=== PATIENT | female | born 1950 | race Caucasian/White ===

== ENCOUNTER 2017-12-17 10:28 | Outpatient (REF) | payer OTHER, SELFPAY ==
[2017-12-17 12:57] LABS: Anion Gap 10.6 mmol/L (3-11); BUN 12 mg/dL (7-18); CO2 27.4 mmol/L (21.0-32.0); CREATININE 0.82 mg/dL (0.55-1.02); Chloride 101 mmol/L (98-107); Glucose 88 mg/dL (70-100); Potassium 4.3 mmol/L (3.5-5.1); Sodium 139 mmol/L (136-145)
[2017-12-17 13:05] LABS: Abs Immature Grans 0.02 k/cumm (0.0-0.09); Absolute Basophil Count 0.03 k/cumm (0.0-0.2); Absolute Eosinophil Count 0.16 k/cumm (0.0-0.7); Absolute Lymphocyte Count 2.47 k/cumm (1.2-3.4); Absolute Monocyte Count 0.63 k/cumm (0.11-0.7); Absolute Neutrophil Count 6.21 k/cumm (1.2-6.7); Basophils % 0.3; Eosinophils % 1.7; HCT 40.9 % (36.0-46.0); HGB 13.6 g/dL (12.0-15.5); Immature Grans % 0.2; Lymphocytes % 25.9; Mean Corp. HGB Concentration 33.3 g/dL (32.0-36.0); Mean Corpuscular Hemoglobin 29.8 pg (27.0-33.0); Mean Corpuscular Volume 89.7 fL (80-95); Mean Platelet Volume 11.3 fL (8.0-11.0); Monocytes % 6.6; Neutrophils % 65.3; Platelet Count 339 x1000/uL (130-400); RBC 4.56 m/cumm (4.00-5.20); RBC Distribution Width 13.3 % (11.7-14.6); White Blood Cell Count 9.52 k/cumm (4.4-10.8)
== END 2017-12-17 10:48 ==
LOC: NCHCN 10:28
PROVIDERS: PCP Family Medicine; Visit Provider Family Medicine
DX: R00.2 Palpitations (principal)
CPT/HCPCS: 80048; 85025

== ENCOUNTER 2017-12-18 15:08 | Outpatient (CLI) | payer OTHER, SELFPAY ==
--- NOTE | 2017-12-24 11:14 | HOLTER_ITS ---
HOLTER MONITOR DATE OF DICTATION December 24, 2017 STUDY INDICATION Palpitations. REQUESTING PROVIDER Janna Marin M.D. FINDINGS The patient was monitored for 2 days and 5 minutes. The baseline rhythm was sinus rhythm. Average heart rate 75 beats per minute, range 60 to 107 beats per minute. There was rare ectopy, 323 PVCs and 1 PAC. There were no ventricular or supraventricular tachycardias. There were no pauses greater than 3 seconds. There was no higher degree heart block. There was 1 patient event that correlated with normal sinus rhythm. FINAL INTERPRETATION No significant tachy or danielle arrhythmias. Guero Henderson M.D. CHARLES/mitzy T-12/24/2017
== END 2017-12-18 15:28 ==
PROVIDERS: PCP Family Medicine; Visit Provider Family Medicine
DX: R00.2 Palpitations (principal)
CPT/HCPCS: 93225

== ENCOUNTER 2017-12-21 14:59 | Outpatient (CLI) | payer OTHER, SELFPAY | END 2017-12-21 15:19 | PROVIDERS: PCP Family Medicine; Visit Provider Family Medicine | DX: R00.2 Palpitations (principal) | CPT/HCPCS: 93226 ==

== ENCOUNTER 2018-08-17 09:34 | Outpatient (CLI) | payer OTHER, SELFPAY ==
[2018-08-17 10:19] LABS: HGB 13.2 g/dL (12.0-15.5); Mean Corpuscular Hemoglobin 29.5 pg (27.0-33.0); Mean Corpuscular Volume 89.3 fL (80-95); Mean Platelet Volume 10.6 fL (8.0-11.0); Platelet Count 328 x1000/uL (130-400); RBC 4.48 m/cumm (4.00-5.20); RBC Distribution Width 13.5 % (11.7-14.6); White Blood Cell Count 9.11 k/cumm (4.4-10.8)
[2018-08-17 11:26] LABS: BUN 13 mg/dL (7-18); CREATININE 0.82 mg/dL (0.55-1.02); Calcium 8.8 mg/dL (8.5-10.1); Chloride 104 mmol/L (98-107); Glucose 82 mg/dL (70-100); Potassium 4.6 mmol/L (3.5-5.1); Sodium 141 mmol/L (136-145); TSH (W/Ref FT4) 1.92 uIU/mL (0.358-3.74)
[2018-08-17 11:35] LABS: Vitamin D 25 Total 37.8 ng/ml (30-100)
== END 2018-08-17 09:54 ==
PROVIDERS: PCP Family Medicine; Visit Provider Family Medicine
DX: I10 Essential (primary) hypertension (principal); R53.83 Other fatigue; E55.9 Vitamin D deficiency, unspecified
CPT/HCPCS: 36415; 80048; 82306; 85027; 84443

== ENCOUNTER 2018-12-16 14:30 | Outpatient (CLI) | payer OTHER, SELFPAY ==
--- NOTE | 2018-12-16 16:24 | DI.RAD_ITS ---
EXAM: XR RIBS LT W PA LAT CHEST INDICATION: BACK PAIN M54.9, PAIN OVER LOWER LT RIBS NOT RESPONDED TO BUTT TRIMMER. COMPARISON: No exams were available for comparison TECHNIQUE: 2D digital imaging was performed. FINDINGS: The heart size is normal. The lungs appear clear. A BB marker was placed over the left lower ribs in the area of the patient's pain. No rib fracture or lytic lesion is seen. The spine is unremarkab le. Degenerative changes are seen in the left shoulder as well as in the spine. IMPRESSION: No acute abnormality. No rib abnormality is visible.
== END 2018-12-16 14:50 ==
PROVIDERS: PCP Family Medicine; Visit Provider Family Medicine
DX: R07.81 Pleurodynia (principal); M54.9 Dorsalgia, unspecified
CPT/HCPCS: 71046; 71100

== ENCOUNTER 2018-12-16 16:36 | Outpatient (REF) | payer OTHER, SELFPAY ==
[2018-12-16 19:37] LABS: Bilirubin Negative (Negative); Blood Negative (Negative); Clarity Clear (Clear); Glucose Negative (Negative); Ketones Negative (Negative); Leukocyte Esterase Small (Negative); Nitrite Negative (Negative); Specific Gravity 1.025 (1.005-1.025); Urobilinogen 0.2 EU/dL (Up TO 0.2)
[2018-12-16 19:50] LABS: Bacteria Rare HPF (Negative); Epithelial Cells Moderate HPF (Negative); Other Cells Negative (Negative); RBC Negative (0-2); WBC 0-2 HPF (0-5)
[2018-12-16 19:51] LABS: C & S Indicated? No; Casts Negative LPF (Negative); Crystals Negative HPF (Negative); Mucus Negative (Negative)
== END 2018-12-16 16:56 ==
LOC: NCHCN 16:36
PROVIDERS: PCP Family Medicine; Visit Provider Family Medicine
DX: R30.0 Dysuria (principal); M54.9 Dorsalgia, unspecified
CPT/HCPCS: 81003; 81015

== ENCOUNTER 2019-07-15 13:12 | Outpatient (REF) | payer OTHER, SELFPAY ==
[2019-07-15 15:22] LABS: HCT 40.9 % (36.0-46.0); HGB 13.8 g/dL (12.0-15.5); Mean Corp. HGB Concentration 33.7 g/dL (32.0-36.0); Mean Corpuscular Hemoglobin 30.3 pg (27.0-33.0); Mean Corpuscular Volume 89.7 fL (80-95); Mean Platelet Volume 11.6 fL (8.0-11.0); Platelet Count 322 x1000/uL (130-400); RBC 4.56 m/cumm (4.00-5.20); RBC Distribution Width 13.3 % (11.7-14.6); White Blood Cell Count 7.45 k/cumm (4.4-10.8)
[2019-07-15 15:23] LABS: Bilirubin Negative (Negative); Blood Trace-intact (Negative); Clarity Turbid (Clear); Glucose Negative (Negative); Ketones Negative (Negative); Leukocyte Esterase Moderate (Negative); Nitrite Negative (Negative); Specific Gravity >= 1.030 (1.005-1.025); Urobilinogen 0.2 EU/dL (Up TO 0.2); pH 5.5 (5-8)
[2019-07-15 15:51] LABS: Epithelial Cells Many HPF (Negative)
[2019-07-15 15:53] LABS: C & S Indicated? No/Sq. Contamination; Crystals Many Amorphous HPF (Negative)
[2019-07-15 16:52] LABS: ALT 38 U/L (14-59); AST 23 U/L (15-37); Alkaline Phosphatase 71 U/L (46-116); Anion Gap 6.9 mmol/L (3-11); BUN 13 mg/dL (7-18); Bilirubin, Total 0.5 mg/dL (0.2-1.0); CO2 28.1 mmol/L (21.0-32.0); CREATININE 1.08 mg/dL (0.55-1.02); Calcium 9.6 mg/dL (8.5-10.1); Calculated LDL 105 mg/dL (<100); Chloride 103 mmol/L (98-107); Cholesterol 188 mg/dL (<200); Estimated GFR 50.76 (mL/min/1.73m2); Glucose 96 mg/dL (74-106); HDL Cholesterol 49 mg/dL (40-60); Potassium 4.3 mmol/L (3.5-5.1); Sodium 138 mmol/L (136-145); TSH (W/Ref FT4) 1.66 uIU/mL (0.36-3.74); Total Protein 7.7 g/dL (6.4-8.2); Triglyceride 173 mg/dL (<150)
[2019-07-16 11:53] LABS: Hepatitis C Ab w Rflx HCV PCR Negative (Negative)
[2019-07-19 12:49] LABS: IgA 426 mg/dL (85-499); Tissue Transglutaminase IgA <1.2 U/mL (<4.0)
== END 2019-07-15 13:32 ==
LOC: NCHCN 13:12
PROVIDERS: PCP Family Medicine; Visit Provider Nurse Practitioner Family
DX: R19.7 Diarrhea, unspecified (principal)
CPT/HCPCS: 80053; 80061; 82784; 83516; 85027; 86803; 81003; 81015; 84443

== ENCOUNTER 2019-09-06 10:49 | Outpatient (REF) | payer OTHER, SELFPAY ==
[2019-09-06 16:21] LABS: PROTEIN 14.2 mg/dL
[2019-09-06 16:23] LABS: COMMENT (LAB VIEW ONLY) 194.05 mg/dL; Prot/Crea Ur Ratio 0.07
[2019-09-06 16:24] LABS: COMMENT (LAB VIEW ONLY) 197.07 mg/dL; Microalb ug/mg Crea 11.7 ug/mg Cr
== END 2019-09-06 11:09 ==
LOC: NCHCN 10:49
PROVIDERS: PCP Family Medicine; Visit Provider Nurse Practitioner Family
DX: R73.9 Hyperglycemia, unspecified (principal); I10 Essential (primary) hypertension
CPT/HCPCS: 82043; 82565; 82570; 84156

== ENCOUNTER 2019-10-08 14:20 | Outpatient (CLI) | payer OTHER, SELFPAY ==
--- NOTE | 2019-10-08 | DI.CT_ITS ---
EXAM: CT ABDOMEN PELVIS W CLINICAL HISTORY: ABD PAIN,R10.84,FEVER,R50.9, H/O DIVERTICULTITIS,Z87.19 TECHNIQUE: COMPARISON: CT ABD PELVIS WITH CONTRAST from 05/30/2017 FINDINGS: CT examination of the abdomen and pelvis was performed with intravenous infusion of 100 cc of Omnipaq ue 350. Images obtained through the lung bases are unremarkable. No free intraperitoneal air. There are multiple low-attenuation hepatic lesions consistent with cysts grossly unchanged in appeara nce comparison with prior scan of May 2017. There is hepatic steatosis. Spleen is unremarkable in appearance. Pancreas appears normal. No biliary dilatation presumed prior cholecystectomy. Abdominal aorta is of normal diameter and major visceral branches appear intact. Small bilateral fat containing inguinal hernias noted. No abdominal or pelvic adenopathy. Appendix is normal. No evidence of bowel obstruction. There is wall thickening of the sigmoid colon and there is localized pericolonic fat edema adjacent t o the distal sigmoid colon seen posterior to the uterus consistent with acute uncomplicated sigmoid d iverticulitis. No abscess or perforation. Cell Installer structures unremarkable except for probable uterine f ibroids. IMPRESSION: Findings consistent with acute uncomplicated sigmoid diverticulitis. RADIATION DOSE DELIVERED: 909.14mGy.cm Total DLP
[2019-10-08 15:23] LABS: CREATININE 0.88 mg/dL (0.55-1.02)
[2019-10-08] MEDS: Omnipaque 350 MG/ML 100 ML BTL IJ (16:24)
[2019-10-08] MEDS: Normal Saline - Diluent 50 ML VIAL IV (16:25)
[2019-10-08] MEDS: Normal Saline Flush 10 ML SYR IVP (16:25)
[2019-10-08] MEDS: Omnipaque 350 MG/ML 50 ML BTL PO (16:25)
[2019-10-08] MEDS: Breeza Beverage 473 ML BTL PO ×2 (16:28→16:29)
--- NOTE | 2019-10-08 16:40 | DI.VRAD_ITS ---
Addendum created by Tim Sherwood DO on 10/08/2019 4:47:33 PM EDT: Addendum: Findings of acute sigmoid diverticulitis were discussed with Dr. Farias by Dr. Sherwood at approximately 3:47 p.m. on 10/08/2019 by phone. Central standard time. Initial report created on 10/08/2019 4:40:44 PM EDT: PROCEDURE INFORMATION: Exam: CT Abdomen And Pelvis With Contrast Exam date and time: 10/08/2019 1:46 PM Age: 69 years old Clinical indication: Other: Abd pain, fever, h/o diverticulititis TECHNIQUE: Imaging protocol: Computed tomography of the abdomen and pelvis with intravenous contrast. Contrast material: OMNIPAQUE 350; Contrast volume: 100 ml; Contrast route: INTRAVENOUS (IV); COMPARISON: CT ABD PELVIS WITH CONTRAST 05/30/2017 3:53 PM FINDINGS: Lungs: Bibasilar atelectasis. Heart: Heart appears mildly enlarged however this may be related to phase of respiration. Mediastinal space: Small hiatal hernia. Liver: Similar hepatic cysts. Unremarkable visualized liver otherwise. Hepatomegaly. Gallbladder and bile ducts: Gallbladder not identified. Pancreas: Unremarkable pancreas. Spleen: Unremarkable spleen. Small splenule. Adrenals: Unremarkable bilateral adrenal glands. Kidneys and ureters: Unremarkable bilateral kidneys. Stomach and bowel: Extensive diverticulosis with wall thickening of the sigmoid and small amount of adjacent reactive change. Nonobstructed bowel otherwise. Appendix: Appendix is not identified however there are no secondary signs of appendicitis. Intraperitoneal space: Unremarkable. Vasculature: Normal caliber aorta. Scattered vascular calcifications. Lymph nodes: No suspicious lymphadenopathy. Bladder: Unremarkable bladder. Reproductive: Similar slightly heterogeneous appearance of the uterus likely related to uterine fibroids. 9 mm right adnexal cyst. The left ovary/adnexa is not well visualized. Bones/joints: Scattered bony degenerative changes. Stable suspected bone island within the left ilium. Soft tissues: Bilateral fat containing inguinal hernias without evidence of acute complication. Unremarkable superficial soft tissues. Other findings: No ductal dilation. IMPRESSION: Findings compatible with uncomplicated acute sigmoid diverticulitis. Dictated and Authenticated by: Tim Sherwood MD. Ordering:JULY Saldivar MD
== END 2019-10-08 14:40 ==
PROVIDERS: PCP Family Medicine; Visit Provider Family Medicine
DX: R10.84 Generalized abdominal pain (principal); R50.9 Fever, unspecified; Z87.19 Personal history of other diseases of the digestive system; N25.9 Disorder resulting from impaired renal tubular function, unspecified
CPT/HCPCS: 74177; 82565; J3490; Q9967

== ENCOUNTER 2019-12-07 17:18 | Outpatient (REF) | payer OTHER, SELFPAY ==
[2019-12-07 18:33] LABS: Bilirubin Negative (Negative); Blood Negative (Negative); Clarity Sl Cloudy (Clear); Glucose Negative (Negative); Ketones Negative (Negative); Leukocyte Esterase Small (Negative); Nitrite Negative (Negative); Specific Gravity 1.015 (1.005-1.025); Urobilinogen 0.2 EU/dL (Up TO 0.2); pH 5.5 (5-8)
[2019-12-07 18:44] LABS: Bacteria Many HPF (Negative); C & S Indicated? Yes; Casts Negative LPF (Negative); Crystals Negative HPF (Negative); Epithelial Cells Few HPF (Negative); Mucus Negative (Negative); RBC 0-2 HPF (0-2)
== END 2019-12-07 17:38 ==
LOC: NCHCN 17:18
PROVIDERS: PCP Family Medicine; Visit Provider Physician Assistant
DX: N39.0 Urinary tract infection, site not specified (principal)
CPT/HCPCS: 87077; 81003; 81015; 87086; 87186

== ENCOUNTER 2019-12-15 19:45 | Outpatient (REF) | payer OTHER, SELFPAY ==
[2019-12-15 19:19] LABS: Bilirubin Negative (Negative); Blood Negative (Negative); Clarity Clear (Clear); Glucose Negative (Negative); Ketones Negative (Negative); Leukocyte Esterase Moderate (Negative); Nitrite Negative (Negative); Urobilinogen 0.2 EU/dL (Up TO 0.2)
[2019-12-15 19:55] LABS: Epithelial Cells Few HPF (Negative); RBC Negative HPF (0-2); WBC >50 HPF (0-5)
[2019-12-15 19:56] LABS: Bacteria Moderate HPF (Negative); C & S Indicated? Yes; Casts Negative LPF (Negative); Crystals Negative HPF (Negative); Mucus Negative (Negative); Other Cells Negative (Negative)
== END 2019-12-15 20:05 ==
LOC: NCHCN 19:45
PROVIDERS: PCP Family Medicine; Visit Provider Physician Assistant
DX: N39.0 Urinary tract infection, site not specified (principal)
CPT/HCPCS: 81003; 81015; 87086

== ENCOUNTER 2020-08-05 12:40 | Outpatient (CLI) | payer MEDICARE, SELFPAY ==
--- NOTE | 2020-08-05 | DI.RAD_ITS ---
Exam(s) XR KNEE LT 3V AP,LAT,MARY EXAM: XR KNEE LT 3V AP,LAT,MARY CLINICAL HISTORY: knee pain left. TECHNIQUE: 2D digital imaging was performed. COMPARISON: No exams were available for comparison FINDINGS: There is no evidence of fracture. There appears to be a small joint effusion. No joint space narrow ing. Bone density is age-appropriate. No osseous lesions. IMPRESSION: DATA REPOSITORY: RADIATION DOSE DELIVERED:
--- NOTE | 2020-08-05 14:16 | DI.VRAD_ITS ---
PROCEDURE INFORMATION: Exam: XR Left Knee Exam date and time: 08/05/2020 12:59 PM Age: 69 years old Clinical indication: Pain; Knee; Left; Additional info: No injury, left knee pain TECHNIQUE: Imaging protocol: XR Left knee. Views: 3 views. COMPARISON: No relevant prior studies available. FINDINGS: Bones/joints: There are mild degenerative changes of the knee joint, predominantly involving the medial joint compartment. There is no evidence of acute fracture. There is no evidence of joint malalignment or dislocation. Soft tissues: There are no soft tissue masses or fluid collections. IMPRESSION: 1. No evidence of acute fracture. 2. No evidence of acute dislocation. Dictated and Authenticated by: Sami Hines MD. Ordering:SHELLI Maldonado MD
== END 2020-08-05 13:00 ==
PROVIDERS: PCP Family Medicine; Visit Provider Physician Assistant Medical
DX: M25.562 Pain in left knee (principal); M25.462 Effusion, left knee
CPT/HCPCS: 73562

== ENCOUNTER 2020-08-07 17:36 | Emergency (ER) | payer MEDICARE, SELFPAY ==
[2020-08-07] VITALS (38 sets, daily range): BP systolic 110–154; BP diastolic 50–91; PULSE 73–86; RESP 14–29; TEMP 36.7; O2SAT 93–98
--- NOTE | 2020-08-07 17:30 | RT.EKG_ITS ---
APPROVED REPORT Exam: Resting ECG Reason for Exam: chest pain Patient Location: E HR:86 bpm ECG Measurements Heart Rate 86 AXIS MA 175 P 52 QRSd 92 QRS -12 QT 366 T 58 QTc 428 Conclusion Sinus rhythm...normal P axis, V-rate 60- 99 Ventricular premature complex...V complex w/ short R-R interval Physician: no stemi
--- NOTE | 2020-08-07 17:54 | DI.CT_ITS ---
Exam(s) CT CHEST PE ABD PELVIS W EXAM: CT CHEST PE ABD PELVIS W TECHNIQUE: CT angiography of the chest, abdomen and pelvis was performed with bolus infusion of 100 cc of Omnipaque 350. Axial CT angiography was performed with multi-slice acquisition and multi-planar and/or 3D reconstruc tions. COMPARISON: CT CT ABDOMEN PELVIS W from 10/08/2019 FINDINGS: The lungs are predominantly clear except for mild mosaic attenuation versus subtle ground-glass opac ities, findings could represent pulmonary vascular congestion period. No pleural effusion. No eviden ce of pulmonary embolic disease. No thoracic aortic dissection or aneurysm. Major branches of the tho racic aorta appear normal. No pleural effusion. No mediastinal or hilar adenopathy. Tracheobronchial tree appears intact. Multiple hepatic cysts again noted, the largest measuring to 7 cm in diameter in the right hepatic lo be. Kidneys are unremarkable in appearance except for presumed tiny right renal cyst. Adrenals are unremarkable in appearance. Gallbladder and bile ducts are CT normal. Pancreas is unremarkable. Sple en is unremarkable. No abdominal aortic aneurysm or dissection. Major branches of the abdominal aorta appear normal. No a bdominal or pelvic adenopathy. Normal appendix. No significant abdominal wall hernia. No focal bowel pathology. Remelt Sugar Boiler structures grossly intact except for presumed uterine fibroids. IMPRESSION: No evidence of acute vascular abnormality of the chest, abdomen or pelvis. No other acute abnormaliti es identified. RADIATION DOSE DELIVERED: 1,360.65mGy.cm Total DLP 1,360.65mGy.cm Total DLP DATA REPOSITORY: All CT scans at this facility are submitted to the National Radiology Data Registry (NRDR) Dose Index Registry (DIR) with the [employer] ([employer]). RADIATION OPTIMIZATION: All CT scans at this facility use at least one of these dose optimization te chniques: automated exposure control; mA and/or kV adjustment per patient size (includes targeted exa ms where dose is matched to clinical indication); or iterative reconstruction.
[2020-08-07 18:13] LABS: Abs Immature Grans 0.04 10^3/uL (0.0-0.06); Absolute Basophil Count 0.03 10^3/uL (0.0-0.2); Absolute Eosinophil Count 0.17 10^3/uL (0.0-0.7); Absolute Lymphocyte Count 2.48 10^3/uL (1.2-3.4); Absolute Monocyte Count 0.78 10^3/uL (0.1-0.8); Absolute Neutrophil Count 8.13 10^3/uL (1.2-6.7); Basophils % 0.3; Eosinophils % 1.5; HCT 40.9 % (36.0-46.0); HGB 13.7 g/dL (11.2-15.7); Immature Grans % 0.3; Lymphocytes % 21.3; MCH 30.1 pg (27.0-33.0); MCHC 33.5 % (32.0-36.0); MCV 89.9 fL (80-95); MPV 10.9 fL (8.0-11.0); Monocytes % 6.7; Neutrophils % 69.9; Nucleated RBC 0 %; Platelet Count 322 10^3/uL (130-400); RBC 4.55 10^6/uL (3.93-5.22); RDW 12.5 % (11.7-14.6); RDW-SD 41.5 fL; WBC 11.63 10^3/uL (4.4-10.8)
[2020-08-07 18:15] LABS: Bilirubin Negative (Negative); Blood Negative (Negative); Clarity Clear (Clear); Glucose Negative (Negative); Ketones Negative (Negative); Leukocyte Esterase Small (Negative); Nitrite Negative (Negative); Specific Gravity <= 1.005 (1.005-1.025); Urobilinogen 0.2 EU/dL (Up TO 0.2); pH 5.5 (5-8)
[2020-08-07 18:26] LABS: Bacteria Negative HPF (Negative); C & S Indicated? Yes; Casts Negative LPF (Negative); Crystals Negative HPF (Negative); Epithelial Cells Few HPF (Negative); Mucus Negative (Negative); Other Cells Few Renal (Negative); RBC Negative HPF (0-2)
[2020-08-07 18:33] LABS: Lipase 288 U/L (73-393)
--- NOTE | 2020-08-07 18:34 | W.ED.GENAD ---
Discharge Plan Disposition Patient Disposition: HOME Condition: Stable Discharge Details Clinical Impression: Hepatic cyst, Abdominal pain Primary Care Provider: Janna Marin ED Provider: Victor Manuel Osorio Home Meds and New Rx's Prescriptions: Continued metoprolol tartrate 25 MG tablet 1 tab PO BID RF: 0 trazodone 100 MG tablet 100 mg PO HS RF: 0 cholecalciferol (vitamin D3) [Vitamin D3] 1,000 UNIT capsule 1,000 unit PO DAILY RF: 0 ibuprofen 600 MG tablet 600 mg PO Q6H PRN PRNQty: 40 RF: 0 omeprazole 20 MG capsule,delayed release(DR/EC) 20 mg PO DAILY RF: 0 meclizine [Antivert] 25 MG tablet 25 mg PO TID PRN PRN (Reason: Vertigo) Qty: 20 RF: 0 Discharge Instructions Instructions: Abdominal Pain (ED) Additional Instructions: At this time it appears that your abdominal pain is being caused by your hepatic cyst. These will likely need to be drained or removed by a surgeon or a specialized insole buffer. We have placed a referral with the surgeon Dr. Arriaza whom you have had a relationship with before. Please follow-up closely with them. Please take Tylenol and Motrin as needed for pain. I have given you a bottle with 4 Mingo pills. Take these cautiously and only as needed as they can cause dizziness and lightheadedness. If you notice any worsening of your symptoms, or any new symptoms such as vomiting, diarrhea, fever, chills, shortness of breath, chest pain, numbness, weakness, or fainting , please return immediately to the emergency department for reevaluation. Please follow up with your primary care provider as soon as possible for reassessment and reevaluation. As always, it was a pleasure participating in your medical care today. Referrals: Carly Arriaza MD [ [facility] STAFF PHYSICIAN] - Janna Marin MD [Primary Care Provider] - Juliana Patiño DO [OSTEOPATHIC DOCTOR] - Medical Decision Making This is a pleasant 69-year-old female with a past medical history of cholecystectomy, previous diverticulitis, previous lumpectomy and subsequent bilateral mastectomy in 2016, no recent chemotherapy or radiation, no previous heart disease, who presents today for epigastric and chest pain. Patient states that 36 hours ago when the patient woke up in the morning she had mild pressure and bandlike sensation across her chest and epigastric region. It is no transition to her mid to lower abdominal region. She describes the pain as pressure heaviness and achiness. She denies any arm neck or shoulder pain. She states that if she gets up exerts herself or she sits in a funny position this worsens her symptoms. Symptoms are unchanged with food. She denies any vomiting or diarrhea but does admit to notable bloating. No other complaints at this time. No other modifying factors. She denies any tearing or ripping sensation. She does admit to mild pleuritic chest pain only with deep inspiration appear Exam demonstrates mild abdominal distention, but present but reduced bowel sounds. Mild epigastric and left upper quadrant left mid quadrant abdominal pain. With the patient's abdominal pain, age, previous abdominal surgeries of a cholecystectomy that was open, will get a CT scan to rule out acute process diverticulitis or small bowel obstruction. Will evaluate for cardiac etiology although I feel this is less likely. PE is also on the differential with her history of malignancy in the past, now her chest pain or shortness of breath and chest pressure 8:[address] scan per radiology shows stable hepatic cysts which are actually fairly notably large, 6 cm x 4 cm, I suspect this is the cause of her pain as it is in the exact location of her pain. No transaminitis. Radiology does discuss mild atelectasis, however the patient has no cough fever or chills. Symptoms are inconsistent with pneumonia. Urinalysis shows only 10 WBCs, with epithelial cells. Negative nitrites. The patient denies any dysuria or frequency. Symptoms inconsistent with urinary tract infection. Patient's pain is controlled at this time. She continues to to show no signs of an acute surgical abdomen. She has had no foreign travel, she has never lived in [place] or after. She does not drink from streams or ponds. The stable hepatic cyst will need to be managed on an outpatient basis. I did briefly discuss the case with Dr. Tubbs from general surgery, who also recommends potentially reaching out for outpatient follow-up with hepatology at one of the tertiary care centers. Patient will be given Mingo to go, discussed red flags which to return. I have extensively reviewed the treatment plan and discharge instructions with the patient. I have addressed all patient concerns at this time. The patient was made aware of what symptoms to monitor for that would warrant a return to the emergency department. Discussed the plan with the patient, they demonstrate verbal understanding and agreement with our assessment and plan at this time. The documentation in this chart was dictated using [employer] dictation software. Please excuse any dictation errors. FINDINGS: Aorta: No aortic aneurysm. No aortic dissection. Celiac trunk and mesenteric arteries: No occlusion or significant stenosis. Renal arteries: No occlusion or significant stenosis. Liver: There are stable large hepatic cysts. No mass. Gallbladder and bile ducts: Normal. No calcified stones. No ductal dilation. Pancreas: Normal. No ductal dilation. Spleen: Normal. No splenomegaly. Adrenals: Normal. No mass. Kidneys and ureters: Normal. No hydronephrosis. Stomach and bowel: Stable, extensive diverticulosis is present in the sigmoid colon. No evidence for diverticulitis. There is no bowel obstruction. Lymph nodes: Unremarkable. No enlarged lymph nodes. Intraperitoneal space: Unremarkable. No free air. No significant fluid collection. Bones/joints: There are degenerative changes of the lumbosacral spine. There is stable presumed bone island in the left iliac bone. No fracture identified. Soft tissues: Unremarkable. IMPRESSION: 1. Stable hepatic cysts. 2. Extensive sigmoid diverticulosis without evidence for diverticulitis. Thank you for allowing us to participate in the care of your patient. Dictated and Authenticated by: Ancelmo Delgadillo MD 08/07/2020 8:26 PM Eastern Time ([place] & [place]) HPI General Date/Time Provider Initiated Documentation: 08/07/20 17:45. HPI Narrative: This is a pleasant 69-year-old female with a past medical history of cholecystectomy, previous diverticulitis, previous lumpectomy and subsequent bilateral mastectomy in 2016, no recent chemotherapy or radiation, no previous heart disease, who presents today for epigastric and chest pain. Patient states that 36 hours ago when the patient woke up in the morning she had mild pressure and bandlike sensation across her chest and epigastric region. It is no transition to her mid to lower abdominal region. She describes the pain as pressure heaviness and achiness. She denies any arm neck or shoulder pain. She states that if she gets up exerts herself or she sits in a funny position this worsens her symptoms. Symptoms are unchanged with food. She denies any vomiting or diarrhea but does admit to notable bloating. No other complaints at this time. No other modifying factors. She denies any tearing or ripping sensation. She does admit to mild pleuritic chest pain only with deep inspiration appear Related Data Home Medications Medication Instructions Recorded Confirmed metoprolol tartrate 1 tab PO BID 05/17/13 08/07/20 cholecalciferol (vitamin D3) 1,000 unit PO DAILY 08/22/15 08/07/20 [Vitamin D3] trazodone 100 mg PO HS 08/22/15 08/07/20 ibuprofen 600 mg PO Q6H PRN PRN #40 tablet 09/19/15 08/07/20 omeprazole 20 mg PO DAILY capcr 06/03/17 08/07/20 meclizine [Antivert] 25 mg PO TID PRN PRN #20 tab 08/30/17 08/07/20 Previous Rx's Medication Instructions Recorded ibuprofen 600 mg PO Q6H PRN PRN #40 tablet 09/19/15 omeprazole 20 mg PO DAILY capcr 06/03/17 meclizine [Antivert] 25 mg PO TID PRN PRN #20 tab 08/30/17 Allergies Allergy/AdvReac Type Severity Reaction Status Date / Time metronidazole [From Flagyl] Allergy Unknown Skin Rash Verified 08/07/20 17:43 Sulfa (Sulfonamide Allergy Unknown Skin Rash Verified 08/07/20 17:43 Antibiotics) adhesive tape AdvReac Intermediate Skin Rash Verified 08/07/20 17:43 hydrocodone bitartrate AdvReac Intermediate Nausea, Verified 08/07/20 17:43 [From Mingo] Dizziness/Lightheaded nickel AdvReac Unknown Itching Verified 08/07/20 17:43 Penicillins AdvReac Unknown Skin Rash Verified 08/07/20 17:43 lactose AdvReac Diarrhea Verified 08/07/20 17:43 General Stated Complaint: Chest Pain GROVER: 2 Review of Systems All systems reviewed & are unremarkable except as noted in HPI and below PFSH Medical History Depression Diastolic dysfunction Diverticulitis large intestine GERD (gastroesophageal reflux disease) Hypertension Insomnia Invasive ductal carcinoma of right breast in female Liver cyst Mitral regurgitation Obesity Obstructive sleep apnea Overactive bladder Psoriasis Vitamin D deficiency Surgical History Breast, Lumpectomy Breast, Mastectomy Bilateral (09/18/15) Colonoscopy - MAC (08/18/17) ductal excision Social History Smoking/Tobacco Use Status: Never Smoking risk assessment performed?: Yes Alcohol Intake: never Drug use: Never Substance use type: does not use Do you feel safe at home: Yes Do you feel safe in your relationship?: Yes Exam Narrative Exam Narrative: 1.Const: Well-nourished, Well-developed, appearing stated age 2.Eyes: PERRL, no conjunctival injection, and symmetrical lids. 3.ENT: Atraumatic external nose and ears. Moist MM. Neck: Symmetric, trachea midline, No thyromegaly. 4.CVS: +S1/S2, No murmurs or gallops. Peripheral pulses 2+ and equal in all extremities. Brisk capillary refill in all extremities. 5.RESP: Unlabored respiratory effort. Clear to auscultation bilaterally. No wheezes rales or rhonchi 6.GI: Soft, mild abdominal distention, bowel sounds reduced but present. Mild left upper quadrant epigastric pain, and left mid quadrant abdominal pain. No pain in the right lower or left lower quadrant. 7.MSK: Normocephalic/Atraumatic, Extremities w/o deformity or ttp No cyanosis or clubbing, Normal movement of all extremities 8.Skin: Warm, Dry. No rashes or lesions. 9.Neuro: public policy analyst II-XII grossly intact. Sensation grossly intact, no focal neurologic deficits. 10.Psych: (AAO) x3. Appropriate mood and affect Course Vital Signs Vital signs: Vital Signs Temperature 36.7 C 08/07/20 17:41 Pulse 82 08/07/20 17:41 Respiratory Rate 21 08/07/20 17:41 Blood Pressure 142/53 H 08/07/20 17:41 Pulse Oximetry 95 08/07/20 17:41 Temperature 36.7 C 08/07/20 17:41 Temperature Source Skin 08/07/20 17:41 Pulse 82 08/07/20 18:01 Pulse 80 08/07/20 18:01 Respiratory Rate 16 08/07/20 18:01 Respiratory Effort Non-Labored 08/07/20 17:44 Respiratory Depth Normal 08/07/20 17:44 Respiratory Pattern Normal 08/07/20 17:44 Blood Pressure 144/62 H 08/07/20 18:01 Blood Pressure Mean 82 08/07/20 18:01 Blood Pressure Position Sitting 08/07/20 17:41 Pulse Oximetry 97 08/07/20 18:01 Oxygen Delivery Method Room Air 08/07/20 17:41 Oxygen Flow Rate 0 08/07/20 17:41 Pain Level 8 08/07/20 17:44 Lab/Test Results Lab/Test Results: 08/07/20 18:10 Urine - Reflex from Ua Urine Culture - Pending Laboratory Tests Range/Units 08/07/20 08/07/20 17:45 18:10 WBC (4.4-10.8) 10^3/uL 11.63 H RBC (3.93-5.22) 10^6/uL 4.55 Hgb (11.2-15.7) g/dL 13.7 Hct (36.0-46.0) % 40.9 MCV (80-95) fL 89.9 MCH (27.0-33.0) pg 30.1 MCHC (32.0-36.0) % 33.5 RDW (11.7-14.6) % 12.5 Plt Count (130-400) 10^3/uL 322 MPV (8.0-11.0) fL 10.9 Immature Gran % 0.3 Neutrophils % 69.9 Lymphocytes % 21.3 Monocytes % 6.7 Eosinophils % 1.5 Basophils % 0.3 Nucleated RBC % % 0 Absolute Neutrophils (1.2-6.7) 10^3/uL 8.13 H Absolute Lymphocytes (1.2-3.4) 10^3/uL 2.48 Absolute Monocytes (0.1-0.8) 10^3/uL 0.78 Absolute Eosinophils (0.0-0.7) 10^3/uL 0.17 Absolute Basophils (0.0-0.2) 10^3/uL 0.03 Urine Color (Yellow) Yellow Urine Clarity (Clear) Clear Urine pH (5-8) 5.5 Ur Specific Orange (1.005-1.025) <= 1.005 Urine Protein (Negative) mg/dL Negative Urine Ketones (Negative) mg/dL Negative Urine Blood (Negative) Negative Urine Nitrite (Negative) Negative Urine Bilirubin (Negative) Negative Urine Urobilinogen (Up TO 0.2) EU/dL 0.2 Ur Leukocyte Esterase (Negative) Small H Urine RBC (0-2) HPF Negative Urine WBC (0-5) HPF 5-10 Ur Epithelial Cells (Negative) HPF Few Urine Crystals (Negative) HPF Negative Urine Bacteria (Negative) HPF Negative Urine Casts (Negative) LPF Negative Urine Mucus (Negative) Negative Urine Other (Negative) Few Renal Ur Culture Indicated? Yes Urine Glucose (Negative) mg/dL Negative
[2020-08-07 18:38] LABS: ALT 20 U/L (14-59); AST 19 U/L (15-37); Albumin 3.8 g/dL (3.4-5.0); Alkaline Phosphatase 98 U/L (46-116); Anion Gap 10.8 mmol/L (3-11); BUN 10 mg/dL (7-18); Bilirubin, Total 0.4 mg/dL (0.2-1.0); CO2 26.2 mmol/L (21.0-32.0); CREATININE 0.9 mg/dL (0.55-1.02); Calcium 9.2 mg/dL (8.5-10.1); Chloride 103 mmol/L (98-107); Glucose 123 mg/dL (74-106); Magnesium 1.8 mg/dL (1.8-2.4); Potassium 4.2 mmol/L (3.5-5.1); Sodium 140 mmol/L (136-145); Total Protein 7.7 g/dL (6.4-8.2)
[2020-08-07 18:59] LABS: Troponin I < 0.05 ng/mL (<0.06)
[2020-08-07] MEDS: Omnipaque 350 MG/ML 100 ML BTL IJ (19:47)
[2020-08-07] MEDS: Normal Saline - Diluent 50 ML VIAL IV (19:47)
--- NOTE | 2020-08-07 20:26 | DI.VRAD_ITS ---
PROCEDURE INFORMATION: Exam: CTA Chest With Contrast Exam date and time: 08/07/2020 5:58 PM Age: 69 years old Clinical indication: Other: Cp pleuritic HX of CA R/O pe; Abdominal pain TECHNIQUE: Imaging protocol: Computed tomographic angiography of the chest with contrast. 3D rendering (Not supervised by radiologist): MIP and/or 3D reconstructed images were created by the technologist. Radiation optimization: All CT scans at this facility use at least one of these dose optimization techniques: automated exposure control; mA and/or kV adjustment per patient size (includes targeted exams where dose is matched to clinical indication); or iterative reconstruction. Contrast material: OMNI 350; Contrast volume: 100 ml; Contrast route: INTRAVENOUS (IV); COMPARISON: CT ABDOMEN PELVIS W 10/08/2019 4:02 PM FINDINGS: Pulmonary arteries: Unremarkable. No pulmonary emboli. Aorta: Unremarkable. No aortic aneurysm. No aortic dissection. Lungs: There are bilateral ground-glass opacities possibly from pulmonary vascular congestion. No consolidation. No masses. Pleural spaces: Unremarkable. No pneumothorax. No pleural effusion. Heart: Unremarkable. No cardiomegaly. No pericardial effusion. Lymph nodes: Unremarkable. No enlarged lymph nodes. Bones/joints: Unremarkable. No acute fracture. Soft tissues: Unremarkable. IMPRESSION: 1. No evidence for pulmonary embolism. 2. Bilateral ground-glass opacities, possibly from pulmonary vascular congestion. PROCEDURE INFORMATION: Exam: CT Angiography Abdomen With Contrast Exam date and time: 08/07/2020 5:58 PM Age: 69 years old Clinical indication: Other: Cp pleuritic HX of CA R/O pe; Abdominal pain TECHNIQUE: Imaging protocol: Computed tomographic angiography images of the abdomen with intravenous contrast material. 3D rendering (Not supervised by radiologist): MIP and/or 3D reconstructed images were created by the technologist. Contrast material: OMNI 350; Contrast volume: 100 ml; Contrast route: INTRAVENOUS (IV); COMPARISON: CT ABDOMEN PELVIS W 10/08/2019 4:02 PM FINDINGS: Aorta: No aortic aneurysm. No aortic dissection. Celiac trunk and mesenteric arteries: No occlusion or significant stenosis. Renal arteries: No occlusion or significant stenosis. Liver: There are stable large hepatic cysts. No mass. Gallbladder and bile ducts: Normal. No calcified stones. No ductal dilation. Pancreas: Normal. No ductal dilation. Spleen: Normal. No splenomegaly. Adrenals: Normal. No mass. Kidneys and ureters: Normal. No hydronephrosis. Stomach and bowel: Stable, extensive diverticulosis is present in the sigmoid colon. No evidence for diverticulitis. There is no bowel obstruction. Lymph nodes: Unremarkable. No enlarged lymph nodes. Intraperitoneal space: Unremarkable. No free air. No significant fluid collection. Bones/joints: There are degenerative changes of the lumbosacral spine. There is stable presumed bone island in the left iliac bone. No fracture identified. Soft tissues: Unremarkable. IMPRESSION: 1. Stable hepatic cysts. 2. Extensive sigmoid diverticulosis without evidence for diverticulitis. Dictated and Authenticated by: Ancelmo Delgadillo MD. Ordering:NUNU Rush MD
[2020-08-07] MEDS: ACETAMINOPHEN 1,000 MG/100 ML BTL 400 MG IVPB (20:36)
--- NOTE | 2020-08-07 20:43 | NUR.NOTE ---
referal sent to [email or web address] to get appt with surgery within 1 week for patic cysts 08/07/20Nursing Note:
--- NOTE | 2020-08-07 20:46 | NUR.NOTE ---
Nursing Note: and needs referal to [facility] for hepatology consult
--- NOTE | 2020-08-17 16:04 | CMPROGNOTE_ITS ---
- If Service Date Differs Date of service: 08/17/20 Time of Service: 16:04 Care Management Progress Note Chloé is seen in the ED on 08/07/20 for abdominal pain and hepatic cyst. At the request of ED provider, CM coordinated a referral to [facility] Hepatology. A follow up phone call with Chloé reveals that an appointment has been scheduled for September 28, 2020. She also advises that she is on a cancellation list in the event an earlier appointment becomes available.
== END 2020-08-07 21:10 | disposition home or self-care (01) ==
PROVIDERS: Emergency Provider Student in an Organized Health Care Education/Training Program; PCP Family Medicine
DX: N28.1 Cyst of kidney, acquired (principal); R10.9 Unspecified abdominal pain
CPT/HCPCS: 36415; 71275; 74177; 80053; 83690; 93005; 96365; 99285; 81003; 81015; 83735; 84484; 85025; 87086; 93010; 99283; J0131; J3490

== ENCOUNTER 2020-11-03 16:07 | Outpatient (REF) | payer MEDICARE, SELFPAY ==
[2020-11-03 19:54] LABS: Calculated LDL 104 mg/dL (<100); Cholesterol 190 mg/dL (<200); HDL Cholesterol 51 mg/dL (40-60); Triglyceride 176 mg/dL (<150)
[2020-11-03 19:57] LABS: Hemoglobin A1C 5.5 % (<5.7)
== END 2020-11-03 16:08 | disposition home or self-care (01) ==
LOC: NCHCN 16:07
PROVIDERS: PCP Family Medicine; Visit Provider Nurse Practitioner
DX: E78.5 Hyperlipidemia, unspecified (principal)
CPT/HCPCS: 80061; 83036

== ENCOUNTER 2021-03-29 14:40 | Outpatient (REF) | payer OTHER, SELFPAY ==
[2021-03-29 21:35] LABS: Abs Immature Grans 0.02 10^3/uL (0.0-0.06); Absolute Basophil Count 0.04 10^3/uL (0.0-0.2); Absolute Eosinophil Count 0.09 10^3/uL (0.0-0.7); Absolute Lymphocyte Count 2.06 10^3/uL (1.2-3.4); Absolute Monocyte Count 0.45 10^3/uL (0.1-0.8); Basophils % 0.5; Eosinophils % 1.1; HCT 44.6 % (36.0-46.0); HGB 14.2 g/dL (11.2-15.7); Immature Grans % 0.3; Lymphocytes % 26.2; MCH 29.2 pg (27.0-33.0); MCHC 31.8 % (32.0-36.0); MCV 91.8 fL (80-95); MPV 11.1 fL (8.0-11.0); Monocytes % 5.7; Neutrophils % 66.2; Nucleated RBC 0 %; Platelet Count 353 10^3/uL (130-400); RBC 4.86 10^6/uL (3.93-5.22); RDW 12.5 % (11.7-14.6); WBC 7.86 10^3/uL (4.4-10.8)
[2021-03-29 21:57] LABS: Anion Gap 4.3 mmol/L (3-11); BUN 15 mg/dL (7-18); CO2 28.7 mmol/L (21.0-32.0); CREATININE 0.9 mg/dL (0.55-1.02); Calcium 9.5 mg/dL (8.5-10.1); Chloride 100 mmol/L (98-107); Glucose 90 mg/dL (74-106); Sodium 133 mmol/L (136-145); TSH 1.12 uIU/mL (0.36-3.74)
[2021-03-31 11:50] LABS: COVID-19 RT-PCR UVMMC Result Negative (Negative)
== END 2021-03-29 14:41 | disposition home or self-care (01) ==
LOC: LBN 14:40
PROVIDERS: PCP Family Medicine; Visit Provider Physician Assistant Medical
DX: R53.1 Weakness (principal); E78.5 Hyperlipidemia, unspecified; Z20.822 Contact with and (suspected) exposure to COVID-19
CPT/HCPCS: 80048; U0003; 84443; 85025

== ENCOUNTER 2021-04-05 14:20 | Emergency (ER) | payer OTHER, SELFPAY ==
[2021-04-05] VITALS (39 sets, daily range): BP systolic 111–159; BP diastolic 42–107; PULSE 59–114; RESP 14–21; TEMP 37.2; O2SAT 94–99
--- NOTE | 2021-04-05 14:15 | RT.EKG_ITS ---
APPROVED REPORT Exam: Resting ECG Reason for Exam: chest pain Patient Location: E HR:70 bpm ECG Measurements Heart Rate 70 AXIS RI 183 P 24 QRSd 90 QRS -7 QT 384 T 55 QTc 414 Conclusion Sinus rhythm...normal P axis, V-rate 60- 99
--- NOTE | 2021-04-05 14:30 | DI.RAD_ITS ---
Exam(s) XR CHEST 2V PA LATERAL EXAM: XR CHEST 2V PA LATERAL CLINICAL HISTORY: palpitations, chest pain TECHNIQUE: 2D digital imaging was performed of the chest. Two images were obtained. PA and lateral views were obtained. COMPARISON: CR XR RIBS LT W PA LAT CHEST from 12/16/2018 FINDINGS: MEDIASTINUM: Normal. HEART: Normal. PULMONARY VASCULATURE: Normal. LUNGS: Clear. PLEURAL SPACE: No pleural effusion or pneumothorax. BONE:Within normal limits for the patient's age. OTHER FINDINGS:Normal. IMPRESSION: No acute pulmonary findings. DATA REPOSITORY: RADIATION DOSE DELIVERED:
--- NOTE | 2021-04-05 14:41 | W.ED.GENAD ---
Discharge Plan Disposition Patient Disposition: HOME Condition: Improving Discharge Details Clinical Impression: Atypical chest pain, Acute UTI Primary Care Provider: Janna Marin ED Provider: Jose Alberto Lundberg Home Meds and New Rx's Prescriptions: New cephalexin 500 mg capsule 500 mg PO BID 5 Days Qty: 10 0RF Continued metoprolol tartrate 25 MG tablet 1 tab PO BID 0RF trazodone 100 MG tablet 100 mg PO HS 0RF cholecalciferol (vitamin D3) [Vitamin D3] 1,000 UNIT capsule 1,000 unit PO DAILY 0RF ibuprofen 600 MG tablet 600 mg PO Q6H PRN PRNQty: 40 0RF omeprazole 20 MG capsule,delayed release(DR/EC) 20 mg PO DAILY 0RF meclizine [Antivert] 25 MG tablet 25 mg PO TID PRN PRN (Reason: Vertigo) Qty: 20 0RF Discharge Instructions Instructions: Chest Pain (ED), Urinary Tract Infection in Women (ED) Additional Instructions: Please take antibiotics as prescribed. Return if you develop persistent chest pain, difficulty breathing, or any other acute concerns. Continue your routine medications. Follow-up with regular doctor if not improved in 5 days time. Medical Decision Making This is a 70-year-old female who presents from home complaining of 1 month of intermittent episodes of left anterior chest pain and palpitations. Says at times she had slight shortness of breath. She has not had syncope. She denies any recent illness but does describe having a low sodium that was seen on laboratory March 29. Patient arrives ER pleasant, alert, no acute distress. Differential diagnosis includes electrolyte abnormality, dehydration, UTI, thyroid disease, must exclude ACS. EKG is reassuring. Laboratories note white count of 8, hematocrit 42, platelets 346. Chemistries unrevealing, troponin negative, TSH within normal limits. Urinalysis is concentrated with a specific gravity of 1.03, moderate leuk esterase present with many bacteria as well as epithelial cells. Chest x-ray no acute findings. Patient served on provisioning analyst and repeat troponin obtained: It is negative. Patient states she has had some mild burning with urination. Will treat her for a UTI with a course of Keflex as she has tolerated cephalosporins in the past. She is stable and appropriate for discharge to home. Lab Data Lab results reviewed: Yes I reviewed the patient's lab results. Labs: Laboratory Results - last 24 hr 04/05/21 04/05/21 04/05/21 14:44 14:44 14:44 WBC 8.55 RBC 4.65 Hgb 13.6 Hct 42.0 MCV 90.3 MCH 29.2 MCHC 32.4 RDW 12.6 Plt Count 346 MPV 10.3 Immature Gran % 0.2 Neutrophils % 63.5 Lymphocytes % 26.8 Monocytes % 7.8 Eosinophils % 1.2 Basophils % 0.5 Nucleated RBC % 0 Absolute Neutrophils 5.43 Absolute Lymphocytes 2.29 Absolute Monocytes 0.67 Absolute Eosinophils 0.10 Absolute Basophils 0.04 Sodium 141 Potassium 3.8 Chloride 104 Carbon Dioxide 27.9 Anion Gap 9.1 BUN 15 Creatinine 1.0 Estimated GFR/1.73 m2 55.14 Glucose 89 Calcium 8.9 Magnesium 1.8 Total Bilirubin 0.5 AST 20 ALT 24 Alkaline Phosphatase 127 H Troponin I < 50 Total Protein 7.9 Albumin 3.5 TSH 1.38 HPI General Mode of arrival: ambulatory. Date/Time Provider Initiated Documentation: 04/05/21 14:22. Limitations to Documentation: no limitations. Information obtained by: patient. History of Present Illness 70 year old F presents to the emergency department with the chief complaint of Intermittent palpitations, left chest pain for 1 month, described as mild and moderate, Quality is described as dull, and is localized to the chest and left. Patient reports no radiation. Patient started experiencing this week(s) and it has been intermittent. improves with No relieving factors improve symptom(s), No exacerbating factors reported . Patient notes chest pain and shortness of breath; denies cough, fever/chills, headaches, loss of appetite, seizure and syncope. Patient did receive the following treatments prior to arrival, none Related Data Home Medications Medication Instructions Recorded Confirmed metoprolol tartrate 25 mg tablet 1 tab PO BID 05/17/13 04/05/21 cholecalciferol (vitamin D3) 25 1,000 unit PO DAILY 08/22/15 04/05/21 mcg (1,000 unit) capsule (Vitamin D3) trazodone 100 mg tablet 100 mg PO HS 08/22/15 04/05/21 ibuprofen 600 mg tablet 600 mg PO Q6H PRN PRN #40 tablet 09/19/15 04/05/21 omeprazole 20 mg capsule,delayed 20 mg PO DAILY capcr 06/03/17 04/05/21 release meclizine 25 mg tablet (Antivert) 25 mg PO TID PRN PRN #20 tab 08/30/17 04/05/21 cephalexin 500 mg capsule 500 mg PO BID 5 Days #10 cap 04/05/21 Previous Rx's Medication Instructions Recorded ibuprofen 600 mg tablet 600 mg PO Q6H PRN PRN #40 tablet 09/19/15 omeprazole 20 mg capsule,delayed 20 mg PO DAILY capcr 06/03/17 release meclizine 25 mg tablet (Antivert) 25 mg PO TID PRN PRN #20 tab 08/30/17 cephalexin 500 mg capsule 500 mg PO BID 5 Days #10 cap 04/05/21 Allergies Allergy/AdvReac Type Severity Reaction Status Date / Time metronidazole [From Flagyl] Allergy Unknown Skin Rash Verified 04/05/21 14:50 Sulfa (Sulfonamide Allergy Unknown Skin Rash Verified 04/05/21 14:50 Antibiotics) adhesive tape AdvReac Intermediate Skin Rash Verified 04/05/21 14:50 hydrocodone bitartrate AdvReac Intermediate Nausea, Verified 04/05/21 14:50 [From [place]] Dizziness/Lightheaded nickel AdvReac Unknown Itching Verified 04/05/21 14:50 Penicillins AdvReac Unknown Skin Rash Verified 04/05/21 14:50 lactose AdvReac Diarrhea Verified 04/05/21 14:50 General Stated Complaint: Chest Pain GROVER: 3 Review of Systems Narrative: Immunized against COVID-19. Denies recent illness. States she was seen for a low sodium 2 weeks ago. Eight systems were reviewed and otherwise negative PFSH All Active Problems (Updated 04/05/21 @ 18:45 by Jose Alberto Lundberg MD) Diverticulitis of sigmoid colon (Acute) Nausea alone (Acute) Discharge planning issues (Acute) Hepatic cyst (Acute) Abdominal pain (Acute) Atypical chest pain (Acute) Acute UTI (Acute) Medical History Depression Diastolic dysfunction Diverticulitis large intestine GERD (gastroesophageal reflux disease) Hypertension Insomnia Invasive ductal carcinoma of right breast in female Liver cyst Mitral regurgitation Obesity Obstructive sleep apnea Overactive bladder Psoriasis Vitamin D deficiency Surgical History Breast, Lumpectomy Breast, Mastectomy Bilateral (09/18/15) Colonoscopy - MAC (08/18/17) ductal excision Social History Smoking/Tobacco Use Status: Never Smoking risk assessment performed?: Yes Alcohol Intake: never Drug use: Never Substance use type: does not use Do you feel safe at home: Yes Do you feel safe in your relationship?: Yes Exam Narrative Exam Narrative: GEN: awake, alert, oriented 3. Pleasant, well groomed, interactive. HEAD: Normocephalic, atraumatic ENT: Mucous membranes dry, oropharynx unremarkable, External ear exam unremarkable EYES: PERRL, EOMI NECK: Full ROM, no CHING, no menigismus CHEST/RESP: Nontender, clear to auscultation bilateral, no wheeze/rhonchi/rales CARDIOVASCULAR: RRR, no murmur, rub shyla. 2+ Rad pulse bilateral ABDOMEN: Soft, nontender, no mass. +Bowel sounds EXT: Full ROM, no edema, no rash Neuro: Grossly normal neurologic exam, conversant, interactive. Psych: Speech fluent, thoughts congruent, affect normal Course Vital Signs Vital signs: Vital Signs Temperature 37.2 C 04/05/21 14:31 Pulse 69 04/05/21 14:31 Respiratory Rate 18 04/05/21 14:31 Blood Pressure 128/64 04/05/21 14:31 Pulse Oximetry 95 04/05/21 14:31 Temperature 37.2 C 04/05/21 14:31 Temperature Source Temporal Artery Scan 04/05/21 14:31 Pulse 69 04/05/21 14:31 Respiratory Rate 18 04/05/21 14:31 Blood Pressure 128/64 04/05/21 14:31 Blood Pressure Position Sitting 04/05/21 14:31 Pulse Oximetry 95 04/05/21 14:31 Oxygen Delivery Method Room Air 04/05/21 14:31 Oxygen Flow Rate 0 04/05/21 14:31
[2021-04-05 14:49] LABS: Abs Immature Grans 0.02 10^3/uL (0.0-0.06); Absolute Basophil Count 0.04 10^3/uL (0.0-0.2); Absolute Lymphocyte Count 2.29 10^3/uL (1.2-3.4); Absolute Monocyte Count 0.67 10^3/uL (0.1-0.8); Absolute Neutrophil Count 5.43 10^3/uL (1.2-6.7); Basophils % 0.5; Eosinophils % 1.2; HGB 13.6 g/dL (11.2-15.7); Immature Grans % 0.2; Lymphocytes % 26.8; MCH 29.2 pg (27.0-33.0); MCHC 32.4 % (32.0-36.0); MCV 90.3 fL (80-95); MPV 10.3 fL (8.0-11.0); Monocytes % 7.8; Neutrophils % 63.5; Nucleated RBC 0 %; Platelet Count 346 10^3/uL (130-400); RBC 4.65 10^6/uL (3.93-5.22); RDW 12.6 % (11.7-14.6); RDW-SD 41.5 fL; WBC 8.55 10^3/uL (4.4-10.8)
[2021-04-05 15:05] LABS: ALT 24 U/L (14-59); AST 20 U/L (15-37); Albumin 3.5 g/dL (3.4-5.0); Alkaline Phosphatase 127 U/L (46-116); Anion Gap 9.1 mmol/L (3-11); BUN 15 mg/dL (7-18); Bilirubin, Total 0.5 mg/dL (0.2-1.0); CO2 27.9 mmol/L (21.0-32.0); Calcium 8.9 mg/dL (8.5-10.1); Chloride 104 mmol/L (98-107); Estimated GFR 55.14 (mL/min/1.73m2); Glucose 89 mg/dL (74-106); Magnesium 1.8 mg/dL (1.8-2.4); Potassium 3.8 mmol/L (3.5-5.1); Sodium 141 mmol/L (136-145); Total Protein 7.9 g/dL (6.4-8.2); Troponin I < 50 ng/L (<or=60)
[2021-04-05 15:13] LABS: TSH 1.38 uIU/mL (0.36-3.74)
[2021-04-05 15:30] LABS: Bilirubin Negative (Negative); Blood Negative (Negative); Clarity Sl Cloudy (Clear); Glucose Negative (Negative); Ketones Negative (Negative); Leukocyte Esterase Moderate (Negative); Nitrite Negative (Negative); Specific Gravity >= 1.030 (1.005-1.025); Urobilinogen 0.2 EU/dL (Up TO 0.2); pH 6.5 (5-8)
[2021-04-05 15:38] LABS: Epithelial Cells Many HPF (Negative)
[2021-04-05 15:39] LABS: Bacteria Many HPF (Negative); C & S Indicated? No/Sq. Contamination; Other Cells Mod Transitional (Negative)
[2021-04-05 18:32] LABS: Troponin I < 50 ng/L (<or=60)
[2021-04-05] MEDS: Cephalexin 500 MG CAP, 2 CAPS/BTL PO (18:55)
== END 2021-04-05 18:58 | disposition home or self-care (01) ==
PROVIDERS: Emergency Provider Emergency Medicine; PCP Family Medicine
DX: R07.89 Other chest pain (principal); R00.2 Palpitations; N39.0 Urinary tract infection, site not specified
CPT/HCPCS: 36415; 80053; 93005; 99284; 71046; 81003; 81015; 83735; 84443; 84484; 85025; 93010; 99283

== ENCOUNTER 2021-06-14 15:38 | Outpatient (REF) | payer OTHER, SELFPAY ==
[2021-06-14 17:50] LABS: Abs Immature Grans 0.04 10^3/uL (0.0-0.06); Absolute Basophil Count 0.07 10^3/uL (0.0-0.2); Absolute Eosinophil Count 0.27 10^3/uL (0.0-0.7); Absolute Lymphocyte Count 2.44 10^3/uL (1.2-3.4); Absolute Neutrophil Count 5.19 10^3/uL (1.2-6.7); Basophils % 0.8; Eosinophils % 3.1; HCT 37.8 % (36.0-46.0); HGB 12.4 g/dL (11.2-15.7); Immature Grans % 0.5; Lymphocytes % 28.3; MCH 29.7 pg (27.0-33.0); MCHC 32.8 % (32.0-36.0); MCV 90 fL (80-95); MPV 11.3 fL (8.0-11.0); Neutrophils % 60.3; Platelet Count 376 10^3/uL (130-400); RBC 4.18 10^6/uL (3.93-5.22); RDW 12.7 % (11.7-14.6); RDW-SD 42.4 fL; WBC 8.61 10^3/uL (4.4-10.8)
[2021-06-14 18:33] LABS: ALT 68 U/L (14-59); AST 60 U/L (15-37); Albumin 3.3 g/dL (3.4-5.0); Alkaline Phosphatase 276 U/L (46-116); Anion Gap 9.6 mmol/L (3-11); BUN 13 mg/dL (7-18); Bilirubin, Total 0.3 mg/dL (0.2-1.0); C-Reactive Protein 2.02 mg/dL (0.0-0.3); CO2 24.4 mmol/L (21.0-32.0); CREATININE 0.9 mg/dL (0.55-1.02); Calcium 8.7 mg/dL (8.5-10.1); Chloride 103 mmol/L (98-107); Glucose 97 mg/dL (74-106); Lipase 233 U/L (73-393); Potassium 4.4 mmol/L (3.5-5.1); Sodium 137 mmol/L (136-145); Total Protein 7.3 g/dL (6.4-8.2)
== END 2021-06-14 15:39 | disposition home or self-care (01) ==
LOC: NCHCN 15:38
PROVIDERS: PCP Family Medicine; Visit Provider Nurse Practitioner Family
DX: R10.32 Left lower quadrant pain (principal); K76.89 Other specified diseases of liver; Z87.19 Personal history of other diseases of the digestive system
CPT/HCPCS: 80053; 83690; 85652; 85025; 86140

== ENCOUNTER → 2021-06-21 03:18 | Outpatient (CLI) | payer OTHER, SELFPAY ==
--- NOTE | 2021-06-21 12:48 | DI.CT_ITS ---
Exam(s) CT ABDOMEN PELVIS WO EXAM: CT ABDOMEN PELVIS WO INDICATION: LLQ ABD PAIN, R10.32; HEPATIC CYST, K76.89; H/O DIVERTICULITIS, Z87.19. COMPARISON: CT CT CHEST PE ABD PELVIS W from 08/07/2020 TECHNIQUE: FINDINGS: CT examination of the abdomen and pelvis was performed without contrast administration. Images obtained through the lung bases are unremarkable. There are multiple hepatic cysts, the largest lies in the right hepatic lobe and measures up to 9 cm in diameter on today's examination, as compared to about 6 cm maximum diameter on prior examination J une 2020.. Gallbladder and bile ducts are CT normal. Pancreas appears normal. Spleen is unremarkable in appearance. Adrenals appear normal. The kidneys are unremarkable with no evidence of hydronephrosis, nephrolithiasis, or renal mass.. Ur inary bladder unremarkable. Abdominal aorta is of normal diameter and no major vascular abnormality is seen. No abdominal wall hernia. No abdominal or pelvic adenopathy. SHERIFF SERGEANT structures appear intact. Appendix is normal. No evidence of diverticulitis or bowel obstruction. IMPRESSION: No evidence of acute diverticulitis. Marked interval increase in size of a dominant right lobe hepatic cyst since July 2020. RADIATION DOSE DELIVERED: 872.69mGy.cm Total DLP 872.69mGy.cm Total DLP !Error CTDIvol RADIATION OPTIMIZATION: All CT scans at this facility use at least one of these dose optimization te chniques: automated exposure control; mA and/or kV adjustment per patient size (includes targeted exa ms where dose is matched to clinical indication); or iterative reconstruction.
== END ==
PROVIDERS: PCP Family Medicine; Visit Provider Nurse Practitioner Family
DX: R10.32 Left lower quadrant pain (principal); K76.89 Other specified diseases of liver; Z87.19 Personal history of other diseases of the digestive system
CPT/HCPCS: 74176

== ENCOUNTER 2021-07-14 16:14 | Emergency (ER) | payer OTHER, SELFPAY ==
[2021-07-14 16:18] VITALS: BP 144/64; PULSE 82; RESP 16; TEMP 36.7; O2SAT 98
[2021-07-14 16:24] VITALS: RESP 16
--- NOTE | 2021-07-14 16:33 | ED.GENADUL_ITS ---
Discharge Plan Disposition Patient Disposition: HOME Discharge Details Clinical Impression: Fatigue Primary Care Provider: SHERRY BRNAHAM ED Provider: Adis Shipley Home Meds and New Rx's Prescriptions: No Action metoprolol tartrate 25 MG tablet 1 tab PO BID trazodone 100 MG tablet 150 mg PO HS cholecalciferol (vitamin D3) [Vitamin D3] 1,000 UNIT capsule 1,000 unit PO DAILY ibuprofen 600 MG tablet 600 mg PO Q6H PRN PRNQty: 40 0RF omeprazole 20 MG capsule,delayed release(DR/EC) 20 mg PO DAILY 0RF meclizine [Antivert] 25 MG tablet 25 mg PO TID PRN PRN (Reason: Vertigo) Qty: 20 0RF Discharge Instructions Instructions: Fatigue (ED) Additional Instructions: Continue taking your regular medications Follow-up with your doctor as needed All your blood work in the emergency department was normal. As well as your urine. EKG was also normal. The cause of your fatigue is probably your recent COVID infection. Medical Decision Making 70-year-old status post COVID 2 weeks ago. Persistent asthenia and weakness. Given patient's age metabolic work-up ordered. Medical Records Medical records narrative: the patient's woke up did not reveal any abnormalities. Her EKG was normal as weel as her troponin (just one obtained given the chronicity of the symptoms).Normal TSH. CXR unremarakle the patient is unhappy that her work up was normal. she did request an infusion of something to make her feel better but I told her that she did not require an infusion HPI General Date/Time Provider Initiated Documentation: 07/14/21 16:31 . HPI Narrative: 62-year-old presented emergency room with 2 weeks of worsening fatigue. She was diagnosed with COVID 2 weeks ago. At that time she had a sore throat and some cough. Symptoms have resolved except for the diarrhea. She has 5-6 loose bowel a day. She believes that she is eating adequately. Maybe she is not drinking enough. She has had no headaches. No chest pain, no palpitations no shortness of breath no cough. No abdominal pain. No nausea no vomiting. No urinary symptoms. No myalgias or arthralgias. She is here today because she was expecting to feel better 2 weeks ago for COVID infection. Related Data Home Medications Medication Instructions Recorded Confirmed metoprolol tartrate 25 mg tablet 1 tab PO BID 05/17/13 07/14/21 cholecalciferol (vitamin D3) 25 1,000 unit PO DAILY 08/22/15 07/14/21 mcg (1,000 unit) capsule (Vitamin D3) trazodone 100 mg tablet 150 mg PO HS 08/22/15 07/14/21 ibuprofen 600 mg tablet 600 mg PO Q6H PRN PRN ##40 09/19/15 07/14/21 omeprazole 20 mg capsule,delayed 20 mg PO DAILY 06/03/17 07/14/21 release meclizine 25 mg tablet (Antivert) 25 mg PO TID PRN PRN Vertigo #20 08/30/17 07/14/21 tabs Previous Rx's Medication Instructions Recorded ibuprofen 600 mg tablet 600 mg PO Q6H PRN PRN ##40 09/19/15 omeprazole 20 mg capsule,delayed 20 mg PO DAILY 06/03/17 release meclizine 25 mg tablet (Antivert) 25 mg PO TID PRN PRN Vertigo #20 08/30/17 tabs Allergies Allergy/AdvReac Type Severity Reaction Status Date / Time metronidazole [From Flagyl] Allergy Unknown Skin Rash Verified 07/14/21 16:23 Sulfa (Sulfonamide Allergy Unknown Skin Rash Verified 07/14/21 16:23 Antibiotics) adhesive tape AdvReac Intermediate Skin Rash Verified 07/14/21 16:23 hydrocodone bitartrate AdvReac Intermediate Nausea, Verified 07/14/21 16:23 [From [place]] Dizziness/Lightheaded nickel AdvReac Unknown Itching Verified 07/14/21 16:23 Penicillins AdvReac Unknown Skin Rash Verified 07/14/21 16:23 lactose AdvReac Diarrhea Verified 07/14/21 16:23 General Stated Complaint: GenMedical GROVER: 3 Review of Systems Narrative: Constitutional positive for fatigue. No malaise. No fevers no chills. HEENT no sore throat. No dizziness or tinnitus Cardiovascular no palpitations no chest pain, no exertional chest pain no shortness of breath Respiratory no cough GI see HPI negative MSK no myalgias arthralgias Skin no rashes Neuro no headaches no paresthesias no focal weakness Psych negative Hematological negative Endocrine negative Allergy negative PFSH All Active Problems (Updated 07/14/21 @ 18:09 by Adis Shipley MD) Diverticulitis of sigmoid colon (Acute) Nausea alone (Acute) Discharge planning issues (Acute) Hepatic cyst (Acute) Abdominal pain (Acute) Fatigue (Acute) Medical History Depression Diastolic dysfunction Diverticulitis large intestine GERD (gastroesophageal reflux disease) Hypertension Insomnia Invasive ductal carcinoma of right breast in female Liver cyst Mitral regurgitation Obesity Obstructive sleep apnea Overactive bladder Psoriasis Vitamin D deficiency Surgical History Breast, Lumpectomy Breast, Mastectomy Bilateral (09/18/15) Colonoscopy - MAC (08/18/17) ductal excision Social History Smoking/Tobacco Use Status: Never Smoking risk assessment performed?: Yes Alcohol Intake: never Drug use: Never Substance use type: does not use Do you feel safe at home: Yes Do you feel safe in your relationship?: Yes Exam Narrative Exam Narrative: GEN: awake, alert, oriented 3. Pleasant, well groomed, interactive. HEAD: Normocephalic, atraumatic ENT: Mucous membranes dry, oropharynx unremarkable, External ear exam unremarkable EYES: PERRL, EOMI NECK: Full ROM, no CHING, no menigismus CHEST/RESP: Nontender, clear to auscultation bilateral, no wheeze/rhonchi/rales CARDIOVASCULAR: RRR, no murmur, rub shyla. 2+ Rad pulse bilateral ABDOMEN: Soft, nontender, no mass. +Bowel sounds EXT: Full ROM, no edema, no rash Neuro: Grossly normal neurologic exam, conversant, interactive. Psych: Speech fluent, thoughts congruent, affect normal Course Vital Signs Vital signs: Vital Signs Temperature 36.7 C 07/14/21 16:18 Pulse 82 07/14/21 16:18 Respiratory Rate 16 07/14/21 16:18 Blood Pressure 144/64 H 07/14/21 16:18 Pulse Oximetry 98 07/14/21 16:18 Temperature 36.7 C 07/14/21 16:18 Temperature Source Oral 07/14/21 16:18 Pulse 82 07/14/21 16:18 Respiratory Rate 16 07/14/21 16:24 Respiratory Effort 07/14/21 16:24 Respiratory Depth Normal 07/14/21 16:24 Respiratory Pattern Normal 07/14/21 16:24 Blood Pressure 144/64 H 07/14/21 16:18 Pulse Oximetry 98 07/14/21 16:18 Oxygen Delivery Method Room Air 07/14/21 16:18 Oxygen Flow Rate 0 07/14/21 16:18
--- NOTE | 2021-07-14 16:45 | DI.RAD_ITS ---
Exam(s) XR CHEST 2V PA LATERAL EXAM: XR CHEST 2V PA LATERAL CLINICAL HISTORY: cough TECHNIQUE: 2D digital imaging was performed of the chest. Two images were obtained. PA and lateral views were obtained. COMPARISON: CR XR CHEST 2V PA LATERAL from 04/05/2021 FINDINGS: MEDIASTINUM: Normal. HEART: Normal. PULMONARY VASCULATURE: Normal. LUNGS: Clear. PLEURAL SPACE: No pleural effusion or pneumothorax. BONE:Within normal limits for the patient's age. OTHER FINDINGS:Normal. IMPRESSION: No acute pulmonary findings. DATA REPOSITORY: RADIATION DOSE DELIVERED:
--- NOTE | 2021-07-14 16:45 | RT.EKG_ITS ---
APPROVED REPORT Exam: Resting ECG Reason for Exam: athenia Patient Location: E HR:71 bpm ECG Measurements Heart Rate 71 AXIS CA 181 P 40 QRSd 91 QRS -6 QT 406 T 36 QTc 442 Conclusion Sinus rhythm...normal P axis, V-rate 60- 99
[2021-07-14 17:12] LABS: Abs Immature Grans 0.03 10^3/uL (0.0-0.06); Absolute Basophil Count 0.04 10^3/uL (0.0-0.2); Absolute Eosinophil Count 0.17 10^3/uL (0.0-0.7); Absolute Lymphocyte Count 2.55 10^3/uL (1.2-3.4); Absolute Monocyte Count 0.66 10^3/uL (0.1-0.8); Absolute Neutrophil Count 5.58 10^3/uL (1.2-6.7); Basophils % 0.4; Eosinophils % 1.9; HCT 39.9 % (36.0-46.0); HGB 13.6 g/dL (11.2-15.7); Immature Grans % 0.3; Lymphocytes % 28.2; MCHC 34.1 % (32.0-36.0); MCV 88 fL (80-95); MPV 10.8 fL (8.0-11.0); Monocytes % 7.3; Neutrophils % 61.9; Platelet Count 300 10^3/uL (130-400); RBC 4.53 10^6/uL (3.93-5.22); RDW 12.6 % (11.7-14.6); RDW-SD 40.6 fL; WBC 9.03 10^3/uL (4.4-10.8)
[2021-07-14] MEDS: Normal Saline 1,000 ML 1000 ML IV (17:18)
[2021-07-14 17:30] LABS: ALT 25 U/L (14-59); AST 24 U/L (15-37); Albumin 3.3 g/dL (3.4-5.0); Alkaline Phosphatase 150 U/L (46-116); Anion Gap 7.2 mmol/L (3-11); BUN 13 mg/dL (7-18); Bilirubin, Total 0.4 mg/dL (0.2-1.0); CO2 26.8 mmol/L (21.0-32.0); CREATININE 1.1 mg/dL (0.55-1.02); Calcium 8.8 mg/dL (8.5-10.1); Chloride 105 mmol/L (98-107); Estimated GFR 49.39 (mL/min/1.73m2); Glucose 96 mg/dL (74-106); Potassium 3.8 mmol/L (3.5-5.1); Sodium 139 mmol/L (136-145); TSH (W/Ref FT4) 1.89 uIU/mL (0.36-3.74); Total Protein 7.3 g/dL (6.4-8.2); Troponin I < 50 ng/L (<or=60)
--- NOTE | 2021-07-14 17:38 | DI.VRAD_ITS ---
PROCEDURE INFORMATION: Exam: XR Chest Exam date and time: 07/14/2021 5:33 PM Age: 70 years old Clinical indication: Cough TECHNIQUE: Imaging protocol: XR of the chest. Views: 2 views. COMPARISON: CR XR CHEST 2V PA LATERAL 04/05/2021 3:50 PM FINDINGS: Lungs: Clear lungs. Pleural spaces: No sizable pleural effusion. No pneumothorax. Heart/Mediastinum: Cardiomediastinal silhouette is within normal limits. Bones/joints: No acute displaced fracture or dislocation. IMPRESSION: No acute cardiopulmonary process. Dictated and Authenticated by: Tim Sherwood MD. Ordering:TANJA Arceo MD
[2021-07-14 17:56] LABS: Bilirubin Negative (Negative); Blood Negative (Negative); Clarity Clear (Clear); Glucose Negative (Negative); Ketones Negative (Negative); Leukocyte Esterase Negative (Negative); Nitrite Negative (Negative); Specific Gravity <= 1.005 (1.005-1.025); Urobilinogen 0.2 EU/dL (Up TO 0.2); pH 5.5 (5-8)
[2021-07-14 18:20] VITALS: BP 132/86; PULSE 70; RESP 18; TEMP 37; O2SAT 99
== END 2021-07-14 18:22 | disposition home or self-care (01) ==
PROVIDERS: Emergency Provider Emergency Medicine; PCP Nurse Practitioner Family
DX: R53.83 Other fatigue (principal); R55 Syncope and collapse; R05.1 Acute cough; Z86.16 Personal history of COVID-19; R53.1 Weakness
CPT/HCPCS: 36415; 80053; 93005; 96360; 99284; 71046; 81003; 84443; 84484; 85025; 93010

== ENCOUNTER 2021-11-30 11:53 | Outpatient (REF) | payer OTHER, SELFPAY ==
[2021-11-30 16:59] LABS: Anion Gap 11.4 mmol/L (3-11); BUN 12 mg/dL (7-18); CO2 24.6 mmol/L (21.0-32.0); CREATININE 1.1 mg/dL (0.55-1.02); Calcium 9.2 mg/dL (8.5-10.1); Chloride 102 mmol/L (98-107); Estimated GFR 54.39 (mL/min/1.73m2); Glucose 111 mg/dL (74-106); Potassium 3.8 mmol/L (3.5-5.1); Sodium 138 mmol/L (136-145)
== END 2021-11-30 11:54 | disposition home or self-care (01) ==
LOC: NCHCN 11:53
PROVIDERS: PCP Nurse Practitioner Family; Visit Provider Physician Assistant Medical
DX: I10 Essential (primary) hypertension (principal)
CPT/HCPCS: 80048

== ENCOUNTER 2021-12-17 18:10 | Outpatient (REF) | payer OTHER, SELFPAY ==
[2021-12-17 19:23] LABS: HCT 40.5 % (36.0-46.0); HGB 13.5 g/dL (11.2-15.7)
[2021-12-17 19:38] LABS: Hemoglobin A1C 5.5 % (<5.7)
[2021-12-17 20:12] LABS: TSH (W/Ref FT4) 1.28 uIU/mL (0.36-3.74)
[2021-12-17 20:23] LABS: Vitamin D 25 Total 59.5 ng/mL (30-100)
== END 2021-12-17 18:11 | disposition home or self-care (01) ==
LOC: NCHCN 18:10
PROVIDERS: PCP Nurse Practitioner Family; Visit Provider Nurse Practitioner Family
DX: R53.83 Other fatigue (principal); E55.9 Vitamin D deficiency, unspecified; R73.09 Other abnormal glucose; I10 Essential (primary) hypertension
CPT/HCPCS: 82306; 83036; 84443; 85014; 85018

== ENCOUNTER 2022-05-15 16:10 | Outpatient (REF) | payer OTHER, SELFPAY | END 2022-05-15 16:11 | disposition home or self-care (01) | LOC: NCHCN 16:10 | PROVIDERS: PCP Physician Assistant Medical; Visit Provider Nurse Practitioner Family | DX: N39.0 Urinary tract infection, site not specified (principal) | CPT/HCPCS: 87086 ==

== ENCOUNTER 2022-05-20 17:00 | Outpatient (REF) | payer OTHER, SELFPAY ==
[2022-05-20 20:03] LABS: HCT 41.5 % (36.0-46.0); HGB 13.8 g/dL (11.2-15.7); MCH 29.7 pg (27.0-33.0); MCHC 33.3 % (32.0-36.0); MCV 89 fL (80-95); MPV 10.6 fL (8.0-11.0); Platelet Count 388 10^3/uL (130-400); RBC 4.64 10^6/uL (3.93-5.22); RDW 12.9 % (11.7-14.6); RDW-SD 42.4 fL; WBC 9.11 10^3/uL (4.4-10.8)
[2022-05-20 20:17] LABS: ALT 17 U/L (14-59); AST 24 U/L (15-37); Albumin 3.7 g/dL (3.4-5.0); Alkaline Phosphatase 92 U/L (46-116); Anion Gap 8.6 mmol/L (3-11); BUN 13 mg/dL (7-18); Bilirubin, Total 0.3 mg/dL (0.2-1.0); CO2 28.4 mmol/L (21.0-32.0); Calcium 9.2 mg/dL (8.5-10.1); Chloride 100 mmol/L (98-107); Estimated GFR 60.98 (mL/min/1.73m2); Glucose 92 mg/dL (74-106); Potassium 3.9 mmol/L (3.5-5.1); Sodium 137 mmol/L (136-145); Total Protein 8.3 g/dL (6.4-8.2)
[2022-05-22 11:39] LABS: HSV 1 DNA Result Negative (Negative); HSV 2 DNA Result Negative (Negative)
== END 2022-05-20 17:01 | disposition home or self-care (01) ==
LOC: NCHCN 17:00
PROVIDERS: PCP Physician Assistant Medical; Visit Provider Physician Assistant Medical
DX: R10.2 Pelvic and perineal pain (principal); R53.83 Other fatigue; N39.0 Urinary tract infection, site not specified; Z11.59 Encounter for screening for other viral diseases
CPT/HCPCS: 80053; 85027; 87529; 87086; 87480; 87510; 87660

== ENCOUNTER 2022-06-28 00:35 | Outpatient (CLI) | payer OTHER, SELFPAY ==
--- NOTE | 2022-06-28 09:15 | DI.RAD_ITS ---
Exam(s) XR SHOULDER LT COMPLETE 2+V EXAM: XR SHOULDER LT COMPLETE 2+V CLINICAL HISTORY: LT SHOULDER PAIN, M25.512. TECHNIQUE: 2D digital imaging was performed. Three views. COMPARISON: No exams were available for comparison FINDINGS: BONES: No acute fracture is present. No bony destructive lesion is seen. Spurring at the tip of the acromion. JOINTS: No dislocation present. Spurring at the inferior glenoid. Mild glenohumeral joint space lenny rowing. Mild spurring at the AC joint. SOFT TISSUE: Normal. IMPRESSION: Mild degenerative changes. DATA REPOSITORY: RADIATION DOSE DELIVERED:
--- NOTE | 2022-06-28 09:35 | DI.CT_ITS ---
Exam(s) CT ABDOMEN PELVIS WO EXAM: CT ABDOMEN PELVIS WO CLINICAL HISTORY: HEPATIC CYST K76.89. TECHNIQUE: Imaging Protocol: Axial computed tomography images with coronal and sagittal reformatted images were created and reviewed. Oral: / no COMPARISON: CT CT ABDOMEN PELVIS WO from 06/21/2021 FINDINGS: ABDOMEN: Lung Bases: Normal where visualized. Liver: Normal density. Some interval decrease in size of the largest hepatic cyst in the right lobe now measuring 8 cm transverse by 8.3 cm AP compared with nearly 10 cm on the prior exam. Mild in int erval decrease in size of cyst in the left lobe of the liver now measuring 5.5 cm compared with over 6 cm on the prior previous exam. Other smaller cysts are unchanged. No new findings. No suspicious mass. Gallbladder and biliary tract: No radiodense calculus or dilation. Pancreas: Normal density, no abnormal calcifications or inflammatory process. Spleen: Normal. Kidneys: Normal size, contour and axis. No radiodense stones or obstructive uropathy. No masses seen. Adrenal glands: No masses seen. Lymph nodes: Within normal limits. Abdominal Aorta: Abdominal portion non-dilated. PELVIS: Bladder: Symmetric distention, no gross wall thickening. Bowel: Diverticulosis. No evidence of diverticulitis. No obstruction or bowel wall thickening. Peritoneal cavity: No ascites, collection or mesenteric inflammatory response. Reproductive organs: Within normal limits. Bones: Within normal limits. IMPRESSION: Mild interval decrease in size of the 2 larger previously noted liver cysts. No suspicious findings. RADIATION DOSE DELIVERED: 880.33mGy.cm Total DLP DATA REPOSITORY: All CT scans at this facility are submitted to the National Radiology Data Registry (NRDR) Dose Index Registry (DIR) with the [employer] ([employer]). RADIATION OPTIMIZATION: All CT scans at this facility use at least one of these dose optimization te chniques: automated exposure control; mA and/or kV adjustment per patient size (includes targeted exa ms where dose is matched to clinical indication); or iterative reconstruction.
== END 2022-06-28 00:55 ==
PROVIDERS: PCP Physician Assistant Medical; Visit Provider Physician Assistant Medical
DX: K76.89 Other specified diseases of liver (principal)
CPT/HCPCS: 73030; 74176

== ENCOUNTER → 2022-07-30 13:45 | Outpatient (BNVA) | payer OTHER, SELFPAY | PROVIDERS: PCP Physician Assistant Medical; Referring Provider Physician Assistant Medical; Visit Provider Student in an Organized Health Care Education/Training Program | DX: M75.102 Unspecified rotator cuff tear or rupture of left shoulder, not specified as traumatic (principal) | CPT/HCPCS: 99203; 99213 ==

== ENCOUNTER 2022-08-18 15:24 | Emergency (ER) | payer OTHER, SELFPAY ==
[2022-08-18] VITALS (51 sets, daily range): BP systolic 112–156; BP diastolic 63–91; PULSE 73–82; RESP 12–27; TEMP 36.6; O2SAT 98
--- NOTE | 2022-08-18 15:15 | RT.EKG_ITS ---
APPROVED REPORT Exam: Resting ECG Reason for Exam: weak/dizzy/palpitations Patient Location: E HR:76 bpm ECG Measurements Heart Rate 76 AXIS RI 178 P 84 QRSd 93 QRS 48 QT 382 T 99 QTc 428 Conclusion Sinus rhythm...normal P axis, V-rate 60- 99 Wandering baseline, will repeat
[2022-08-18 17:05] LABS: Abs Immature Grans 0.03 10^3/uL (0.0-0.06); Absolute Basophil Count 0.06 10^3/uL (0.0-0.2); Absolute Eosinophil Count 0.11 10^3/uL (0.0-0.7); Absolute Lymphocyte Count 2.36 10^3/uL (1.2-3.4); Absolute Monocyte Count 0.62 10^3/uL (0.1-0.8); Absolute Neutrophil Count 5.46 10^3/uL (1.2-6.7); Basophils % 0.7; Eosinophils % 1.3; HCT 42.2 % (36.0-46.0); Immature Grans % 0.3; Lymphocytes % 27.3; MCH 29.6 pg (27.0-33.0); MCHC 33.2 % (32.0-36.0); MCV 89 fL (80-95); MPV 10.7 fL (8.0-11.0); Monocytes % 7.2; Neutrophils % 63.2; Platelet Count 357 10^3/uL (130-400); RBC 4.73 10^6/uL (3.93-5.22); RDW 12.5 % (11.7-14.6); RDW-SD 41.1 fL; WBC 8.64 10^3/uL (4.4-10.8)
--- NOTE | 2022-08-18 17:19 | W.ED.GENAD ---
Discharge Plan Disposition Patient Disposition: Home Condition: Stable Discharge Details Clinical Impression: Palpitations Primary Care Provider: Rabia Jorge ED Provider: Kavin Campbell Home Meds and New Rx's Prescriptions: Continued metoprolol tartrate 25 mg tablet 25 mg PO DAILY trazodone 100 mg tablet 50 mg PO HS cholecalciferol (vitamin D3) [Vitamin D3] 1,000 UNIT capsule 1,000 unit PO DAILY ibuprofen 600 MG tablet 600 mg PO Q6H PRN PRNQty: 40 0RF ondansetron HCl 8 mg tablet 8 mg PO PRN PRN Patient Comments: TAKE 1 TABLET BY MOUTH THREE TIMES DAILY NEEDED hydroxyzine HCl 50 mg tablet 50 mg PO HS PRN Patient Comments: Take 1 tablet by mouth at bedtime NEEDED zolpidem 5 mg tablet Patient Comments: does not take anymore clobetasol 0.05 % ointment 0.05 applic TOPICAL PRN PRN Patient Comments: Apply 1 a small amount to affected area twice a day as needed For vaginal itching omeprazole 20 MG capsule,delayed release(DR/EC) 20 mg PO DAILY 0RF meclizine [Antivert] 25 MG tablet 25 mg PO TID PRN PRN (Reason: Vertigo) Qty: 20 0RF Discharge Instructions Instructions: Heart Palpitations (ED) Medical Decision Making Patient presents a difficult history. Not disorganized. Not confused. She is AAOx3. She does not answer questions specifically or directly. What can be ascertained is that in brief the patient has had several weeks of severe insomnia that is worse from her baseline insomnia. And then today she experienced some right-sided facial tingling which while better now concerned her enough to bring her to the emergency department. She also states that she has been having intermittent palpitations. No known cardiac disease or cardiac history. EKG shows no ST changes consistent with ischemia but with a wavy baseline. Repeat EKG will be ordered. We will obtain troponin and observe the patient and restratify for disposition. NIH score is 0 patient's only neurologic complaint is slight right-sided lower mandibular tingling which she states is now improved from previous. Differential Diagnosis Differential Diagnosis: Cardiac arrhythmia/paresthesias/significant electrolyte abnormality Medical Records Medical records reviewed: Yes I reviewed the patient's medical records. ECG Data Attestation: I personally reviewed and interpreted this ECG (s) as follows: (Sinus rhythm with no ectopy no significant arrhythmia. No ST changes consistent with ischemia.) HPI General Date/Time Provider Initiated Documentation: 08/18/22 16:51. HPI Narrative: Patient with a history of significant insomnia now presents to the emergency department as she has been dealing with intermittent episodes of palpitations and some right sided facial tingling that has been paroxysmal since last night. She had previously seen her primary care provider about 3 days prior to the presentation to the emergency department. Primary provider encouraged the patient that should she have a repeat episode of palpitations that she should present to the emergency department for an evaluation then will specifically an EKG. Patient has a longstanding history of insomnia for which multiple medications been tried but have not been successful. Patient states that over the last couple of days she slept an average of 1 to 3 hours a night. The palpitations have been intermittent for several weeks now but the new finding was the right-sided facial tingling from the right side of the mouth and over the right chin. She denies any other focal neurologic deficits such as focal weakness, slurred speech, coordination deficit, ambulatory difficulty. She denies recent illness such as cough cold fevers nausea vomiting or diarrhea. Related Data Home Medications Medication Instructions Recorded Confirmed cholecalciferol (vitamin D3) 25 1,000 unit PO DAILY 08/22/15 08/18/22 mcg (1,000 unit) capsule (Vitamin D3) ibuprofen 600 mg tablet 600 mg PO Q6H PRN PRN #40 tabs 09/19/15 08/18/22 omeprazole 20 mg capsule,delayed 20 mg PO DAILY 06/03/17 08/18/22 release meclizine 25 mg tablet (Antivert) 25 mg PO TID PRN PRN Vertigo #20 08/30/17 08/18/22 tabs metoprolol tartrate 25 mg tablet 25 mg PO DAILY 07/02/22 08/18/22 trazodone 100 mg tablet 50 mg PO HS 07/02/22 08/18/22 clobetasol 0.05 % topical ointment 0.05 applic topical PRN PRN 08/18/22 08/18/22 hydroxyzine HCl 50 mg tablet 50 mg PO HS PRN 08/18/22 08/18/22 ondansetron HCl 8 mg tablet 8 mg PO PRN PRN 08/18/22 08/18/22 zolpidem 5 mg tablet mg 08/18/22 08/18/22 Previous Rx's Medication Instructions Recorded ibuprofen 600 mg tablet 600 mg PO Q6H PRN PRN #40 tabs 09/19/15 omeprazole 20 mg capsule,delayed 20 mg PO DAILY 06/03/17 release meclizine 25 mg tablet (Antivert) 25 mg PO TID PRN PRN Vertigo #20 08/30/17 tabs Allergies Allergy/AdvReac Type Severity Reaction Status Date / Time metronidazole [From Flagyl] Allergy Unknown Skin Rash Verified 08/18/22 15:39 Sulfa (Sulfonamide Allergy Unknown Skin Rash Verified 08/18/22 15:39 Antibiotics) adhesive tape AdvReac Intermediate Skin Rash Verified 08/18/22 15:39 hydrocodone bitartrate AdvReac Intermediate Nausea, Verified 08/18/22 15:39 [From [place]] Dizziness/Lightheaded nickel AdvReac Unknown Itching Verified 08/18/22 15:39 Penicillins AdvReac Unknown Skin Rash Verified 08/18/22 15:39 gluten AdvReac Diarrhea Unverified 08/18/22 15:39 lactose AdvReac Diarrhea Verified 08/18/22 15:39 General Stated Complaint: Arrhythmia GROVER: 3 Review of Systems Narrative: REVIEW OF SYSTEMS: CONST: Negative for fever, body aches and chills. HENT: Negative for neck pain/stiffness, headache, congestion, sore throat, swelling. EYES: Negative for discharge/pain or vision changes. RESP: Negative for cough/hemoptysis and shortness of breath. CV: Negative chest pain, difficulty breathing, . ABD: Negative pain, nausea, vomiting. : Negative increase frequency, dysuria, blood in urine or stool. MUSC: Negative for muscle aches, edema. SKIN: Negative rash, lesions/sores. NEURO: Negative headache, dizziness, weakness. PFSH All Active Problems Palpitations (Acute) Left rotator cuff tear (Acute) Diverticulitis of sigmoid colon (Acute) Nausea alone (Acute) Discharge planning issues (Acute) Hepatic cyst (Acute) Abdominal pain (Acute) Medical History Depression Diastolic dysfunction Diverticulitis large intestine GERD (gastroesophageal reflux disease) Hypertension Insomnia Invasive ductal carcinoma of right breast in female Liver cyst Mitral regurgitation Obesity Obstructive sleep apnea Overactive bladder Psoriasis Vitamin D deficiency Surgical History Breast, Lumpectomy Breast, Mastectomy Bilateral (09/18/15) Colonoscopy - MAC (08/18/17) ductal excision Social History Smoking/Tobacco Use Status: Never Smoking risk assessment performed?: Yes Alcohol Intake: never Drug use: Never Substance use type: does not use Housing: house Current gender identity: female Do you feel safe at home: Yes Do you feel safe in your relationship?: Yes Exam Narrative Exam Narrative: GENERAL APPEARANCE NAD, activity normal for age, well developed/ well nourished, no cyanosis, pallor, or diaphoresis. EYES lids/conjunctiva normal. EARS/NOSE/THROAT Mucous membranes moist, nares normal, lips/teeth normal uvula midline without oral pharyngeal erythema, exudate or swelling No lymphangitis/lymphedema. HEAD/NECK normocephalic atraumatic, no facial trauma, neck is supple. RESPIRATORY respiratory effort normal, speaks in full sentences, no tripod position, no accessory muscle use. Lungs clear to auscultation without rhonchi, wheezes, rales CARDIAC Regular rate and rhythm, no edema. ABDOMINAL Soft, ND/NT. No evidence of fluid wave. No pulsatile masses on exam, rebound tenderness, Moralez sign or pain over Mcburney's point. MUSCLES/EXTREMITIES No abnormal range of motion, no swelling. SKIN Warm, pink and dry. No rashes, dermatoses, petechiae or lesions. NEUROLOGICAL Speech is clear and appropriate. Normal level of consciousness. Gait and coordination are normal. 5/5 strength in all extremities. Slight subjective sensory deficit over the right mandible. None over the forehead or the front of the face. No cranial nerve deficit. No facial droop. No nystagmus. No disconjugate gaze. No pronator drift. Negative Romberg sign. PSYCH Normal mood and affect. Judgement/competence is appropriate Course Reevaluation(s) Time: 18:32 Reevaluation: Patient with no further palpitations no further symptoms of tingling on the right side of the face. Ambulated to the bathroom with no difficulty. She is requesting discharge before a second troponin is due. States that she feels that her symptoms are most likely secondary to insomnia. At this time she states that she is chest pain-free. Her pulse is regular and about 70. She is in no apparent distress. As this patient is requesting discharge I will proceed with discharging her and she understands need to return to emergency department should she have any further symptoms of palpitations or facial tingling like she did earlier today. She has a PCP with whom she will follow-up with. Vital Signs Vital signs: Vital Signs Temperature 36.6 C 08/18/22 15:33 Pulse 82 08/18/22 15:33 Respiratory Rate 18 08/18/22 15:33 Blood Pressure 112/91 H 08/18/22 15:33 Pulse Oximetry 98 08/18/22 15:33 Temperature 36.6 C 08/18/22 15:33 Pulse 82 08/18/22 15:33 Respiratory Rate 18 08/18/22 15:33 Respiratory Effort Normal 08/18/22 15:37 Blood Pressure 112/91 H 08/18/22 15:33 Pulse Oximetry 98 08/18/22 15:33 Oxygen Delivery Method Room Air 08/18/22 15:33 Oxygen Flow Rate 0 08/18/22 15:33 Lab/Test Results Lab/Test Results: Laboratory Tests Range/Units 08/18/22 16:00 WBC (4.4-10.8) 10^3/uL 8.64 RBC (3.93-5.22) 10^6/uL 4.73 Hgb (11.2-15.7) g/dL 14.0 Hct (36.0-46.0) % 42.2 MCV (80-95) fL 89 MCH (27.0-33.0) pg 29.6 MCHC (32.0-36.0) % 33.2 RDW (11.7-14.6) % 12.5 Plt Count (130-400) 10^3/uL 357 MPV (8.0-11.0) fL 10.7 Immature Gran % 0.3 Neutrophils % 63.2 Lymphocytes % 27.3 Monocytes % 7.2 Eosinophils % 1.3 Basophils % 0.7 Nucleated RBC % (0.0-0.3) % 0.0 Absolute Neutrophils (1.2-6.7) 10^3/uL 5.46 Absolute Lymphocytes (1.2-3.4) 10^3/uL 2.36 Absolute Monocytes (0.1-0.8) 10^3/uL 0.62 Absolute Eosinophils (0.0-0.7) 10^3/uL 0.11 Absolute Basophils (0.0-0.2) 10^3/uL 0.06
[2022-08-18 17:26] LABS: ALT 21 U/L (14-59); AST 16 U/L (15-37); Albumin 3.5 g/dL (3.4-5.0); Alkaline Phosphatase 95 U/L (46-116); Anion Gap 7.8 mmol/L (3-11); BUN 13 mg/dL (7-18); Bilirubin, Total 0.4 mg/dL (0.2-1.0); CO2 29.2 mmol/L (21.0-32.0); Calcium 8.8 mg/dL (8.5-10.1); Chloride 102 mmol/L (98-107); Estimated GFR 60.98 (mL/min/1.73m2); Glucose 108 mg/dL (74-106); Magnesium 1.8 mg/dL (1.8-2.4); Potassium 3.8 mmol/L (3.5-5.1); Sodium 139 mmol/L (136-145); Total Protein 7.9 g/dL (6.4-8.2); Troponin I < 50 ng/L (<or=60)
== END 2022-08-18 18:43 | disposition home or self-care (01) ==
PROVIDERS: Emergency Provider Emergency Medicine; PCP Physician Assistant Medical
DX: R00.2 Palpitations (principal); R06.02 Shortness of breath; G47.00 Insomnia, unspecified; R20.2 Paresthesia of skin
CPT/HCPCS: 36415; 80053; 93005; 99283; 83735; 84484; 85025; 93010

== ENCOUNTER 2022-08-19 02:06 | Outpatient (CLI) | payer OTHER, SELFPAY ==
--- NOTE | 2022-08-19 08:45 | DI.MRI_ITS ---
Exam(s) MR UPPER JOINT LT WO EXAM: MR UPPER JOINT LT WO CLINICAL HISTORY: LEFT SHOULDER PAIN, LEFT ROTATOR CUFF TEAR, M75.102. TECHNIQUE: Multiplanar multisequence MRI was performed. COMPARISON: Plain films 28 Jun 2022 FINDINGS: BONES: There is no fracture or contusion pattern. JOINTS:The acromioclavicular joint shows mild degenerative changes. Spurring at the tip of the acrom ion and greater tuberosity. The glenohumeral joint shows a small effusion. TENDONS: Supraspinatus: Focal full-thickness tear anteriorly. Infraspinatus: Unremarkable. Subscapularis: Unremarkable. Teres Minor: Unremarkable. Biceps and Ovid: Fluid in biceps tendon sheath. MUSCLES: Unremarkable. GLENOID LABRUM: Tear of the superior labrum. SOFT TISSUES: Unremarkable. OTHER: Subacromial and subdeltoid bursae shows fluid. Minimal fluid in subcoracoid bursa. IMPRESSION: Full-thickness tear of the anterior supraspinatus tendon. Superior labral tear. DATA REPOSITORY:
== END 2022-08-19 02:26 ==
LOC: DI 02:07
PROVIDERS: PCP Physician Assistant Medical; Visit Provider Student in an Organized Health Care Education/Training Program
DX: M75.120 Complete rotator cuff tear or rupture of unspecified shoulder, not specified as traumatic (principal); S43.432A Superior glenoid labrum lesion of left shoulder, initial encounter; X58.XXXA Exposure to other specified factors, initial encounter
CPT/HCPCS: 73221

== ENCOUNTER → 2022-09-04 10:47 | Outpatient (BNVA) | payer OTHER, SELFPAY | PROVIDERS: PCP Physician Assistant Medical; Referring Provider Physician Assistant Medical; Visit Provider Student in an Organized Health Care Education/Training Program | DX: M75.102 Unspecified rotator cuff tear or rupture of left shoulder, not specified as traumatic (principal) | CPT/HCPCS: 99214 ==

== ENCOUNTER 2022-09-16 11:33 | Outpatient (REF) | payer OTHER, SELFPAY ==
[2022-09-17 09:54] LABS: Lyme Ab w Rflx to Lyme Confirm Negative (Negative)
[2022-09-19 14:17] LABS: Anaplasma phagocytophilum Negative (Negative); B. miyamotoi PCR Negative (Negative); Babesia divergens/MO-1 Negative (Negative); Babesia duncani Negative (Negative); Babesia microti Negative (Negative); Ehrlichia chaffeensis Negative (Negative); Ehrlichia ewingii/canis Negative (Negative); Ehrlichia muris eauclairensis Negative (Negative)
== END 2022-09-16 11:34 | disposition home or self-care (01) ==
LOC: NCHCN 11:33
PROVIDERS: PCP Physician Assistant Medical; Visit Provider Physician Assistant Medical
DX: R53.83 Other fatigue (principal); A69.20 Lyme disease, unspecified
CPT/HCPCS: 87798; 86618

== ENCOUNTER → 2022-10-02 10:44 | Outpatient (CLI) | payer OTHER, SELFPAY | PROVIDERS: PCP Physician Assistant Medical; Visit Provider Student in an Organized Health Care Education/Training Program | DX: I34.0 Nonrheumatic mitral (valve) insufficiency (principal) | CPT/HCPCS: 93306 ==

== ENCOUNTER 2022-10-03 21:22 | Observation (INO) | payer OTHER, SELFPAY ==
[2022-10-03] VITALS (17 sets, daily range): BP systolic 127–180; BP diastolic 43–102; PULSE 77–101; RESP 16–21; TEMP 35.9–36.8; O2SAT 93–99; BMI 30.9
--- NOTE | 2022-10-03 07:20 | PDOC.DSDIS_ITS ---
Date of service: 10/03/22 Time of Service: 15:00 Discharge Plan Disposition Patient Disposition: Home Condition: Stable Discharge Details Attending Provider: Ollie Pradhan Primary Care Provider: Rabia Jorge Home Meds and New Rx's Prescriptions: New naproxen 250 mg tablet 250 - 500 mg PO BID PRNQty: 40 0RF Rx Instructions: take with a meal aspirin 81 mg tablet,delayed release (DR/EC) 81 mg PO DAILY 7 Days Qty: 7 0RF oxycodone 5 mg tablet 5 - 10 mg PO Q4H MDD 30 mg PRN (Reason: moderate to severe pain) Qty: 18 0RF Continued metoprolol tartrate 25 mg tablet 25 mg PO HS trazodone 100 mg tablet 100 mg PO HS cholecalciferol (vitamin D3) [Vitamin D3] 1,000 UNIT capsule 1,000 unit PO DAILY ondansetron HCl 8 mg tablet 8 mg PO PRN PRN Patient Comments: TAKE 1 TABLET BY MOUTH THREE TIMES DAILY NEEDED clobetasol 0.05 % ointment 0.05 applic TOPICAL PRN PRN Patient Comments: Apply 1 a small amount to affected area twice a day as needed For vaginal itching diazepam 5 mg tablet 2.5 mg PO HS Patient Comments: TAKE 1 TABLET BY MOUTH ONCE DAILY AT NIGHT NEEDED omeprazole 20 MG capsule,delayed release(DR/EC) 20 mg PO DAILY 0RF meclizine [Antivert] 25 MG tablet 25 mg PO TID PRN PRN (Reason: Vertigo) Qty: 20 0RF Discontinued ibuprofen 600 MG tablet 600 mg PO Q6H PRN PRNQty: 40 0RF Discharge Instructions Additional Instructions: Surgery: Left shoulder arthroscopy with rotator cuff repair (supraspinatus), biceps tenodesis, extensive debridement, and subacromial decompression. Activity: For 6 weeks, you should keep your arm at your side in a neutral position at all times except for physical therapy. Do not try to lift or raise your arm using your own muscles. You should use the sling whenever you are out of the house. You may have to adjust the abduction pillow or remove it for comfort. At home it is best to remove the sling and rest the arm on a pillow at your side or support the operative side with your other hand. You may allow the arm to dangle at your side. A physical therapy prescription will be sent electronically to begin in about 3 weeks. STANDARD protocol. Prescriptions: Aspirin 81 mg take 1 daily to prevent a blood clot for 7 days Naproxen 250 mg take 1-2 every 12 hours with a meal as needed for moderate pain Oxycodone 5 mg take 1-2 every 4-6 hours as needed for severe pain You may use [id number] Tylenol (acetaminophen) as needed for mild pain. These pain medications may be taken all at once or in different combinations as needed. Also, recommend Colace (docusate) as a stool softener as surgery and pain medicine cause constipation. You may try [id number] diphenhydramine (Benadryl) 25-50 mg nightly as a sleep aid Dressings: Remove shoulder bandage after 3 days. Leave the sticky Steri-Strips in place until they fall off or remove them after you shower. Cover the incisions with Band-Aids or leave them open to air. You may shower after 5 day s. Follow-up: 10-[address] Pradhan You may take off the leg compression stockings this evening at home. You may also leave them on a few days longer if you have a history of leg swelling or ed brenna. Let us know right away if you develop any redness, drainage, fevers, chest pain, or trouble breathing. Do not drink alcohol or drive for at least 24 hours after anesthesia. Please call the office during business hours with any questions or concerns. Stand Alone Forms: Anesthesia Discharge Inst., Emilio Ruby ([facility]) Discharge Orders Discharge Orders: Discharge Order (Routine); Ordered 10/03/22 Ordered By: Ollie Pradhan DS: Diagnosis Discharge Diagnosis (1) Left rotator cuff tear: Status: Acute
--- NOTE | 2022-10-03 07:21 | ROE_ITS ---
Date of service: 10/03/22 Time of Service: 13:00 Operative Note Operative Note DATE OF PROCEDURE: 10/03/22 PRE-OP DIAGNOSIS: Left: 1. Rotator cuff tear 2. LHB tendinopathy/ partial tearing 3. Bursitis 4. Impingement POST-OP DIAGNOSIS: same PROCEDURE: Left: 1. Rotator cuff repair, CPT# 65771. This involved repair of the supraspinatus using anchor and sutures to reattach the rotator cuff back to the footprint of the greater tuberosity. 2. Arthroscopic biceps tenodesis, CPT# 72357. This involved arthroscopically suturing and reattaching the long head of the biceps tendon to the proximal humerus at the superior margin of the bicipital groove with a screw at the correct tension. 3. Extensive debridement, CPT# 64900. This involved using arthroscopic hand instruments, power instruments, and radiofrequency instruments to release the long head of the biceps tendon and debride areas of labral tearing, partial subscapularis tearing, synovitis, SLAP tearing, and chondromalacia about the humeral head working within the glenohumeral joint anteriorly, superiorly and posteriorly. 4. Subacromial decompression with partial acromioplasty, CPT# 19267. This involved using arthroscopic power instruments and a radiofrequency wand to complete a bursectomy and smooth the undersurface of the acromion. The assistant football coach was medically required in order to help assist in techniques above, which require positioning the arm, holding the arthroscope, and manipulating multiple instruments and sutures at the same time. This cannot be done without the help of an experienced assistant football coach. SURGEON: Ollie Pradhan ASSISTANT ASSOCIATE PROFESSOR: Diaz Ariza ANESTHESIA TYPE: Local By Surgeon and General LMA/ETT Refer to Anesthesia Record ESTIMATED BLOOD LOSS: 10 PATHOLOGY: none sent COMPLICATIONS: None Patient was transported to: PACU Patient's condition: stable Implants: Arthrex: 5.5mm SwiveLocks x 1 Indications: The patient was diagnosed with the above conditions and appropriately indicated for surgical intervention. Please see complete medical record for details. Findings: Exam under anesthesia: Full ROM, no instability Glenohumeral joint: Moderate joint space narrowing. Moderate generalized chondromalacia with some more focal high-grade areas humeral head. Moderate labral tear fraying posterior and anteriorly. Degenerative type SLAP tear unstable biceps anchor. Moderate grade partial biceps tendon tearing at the superior aspect of the bicipital groove. Significant rotator interval and superior synovitis. Focal small anterior leading edge supraspinatus full- thickness articular rotator cuff tear. Small superior lateral margin partial subscapularis tear. Intact infraspinatus. Subacromial space: Significant bursitis. Significant narrowing with impinging undersurface acromion on bursal rotator cuff. Small anterior full-thickness supraspinatus rotator cuff tear with mild retraction. Thinning and degeneration throughout but no other structural tearing, appropriate for age probably. Procedure Description: In the operating room, general anesthesia was induced. Bilateral shoulders were examined. The patient was positioned in the beachchair position. All bony pro minences were well-padded. Preoperative antibiotics were administered. The shoulder was prepped and draped in the usual sterile fashion. The correct patient, procedure, and side of the procedure were all verified prior to incision. Starting through the posterior portal a standard complete diagnostic arthroscopy was performed of the glenohumeral joint including inspection of the long head of the biceps, anterior and superior labrum, subscapularis tendon, supraspinatus and infraspinatus tendons, and axillary recess. The glenoid and humeral head cartilage as well as the posterior labrum were inspected from an anterior viewing portal. Significant findings and interventions noted above. The diminutive shoulder and significant synovitis made glenohumeral work through the standard anterior posterior portals challenging. Instead, the arthroscope was redirected in the subacromial space. A 50 yard line portal and Makeda cannula were inserted directed centrally at the rotator cuff tear. Switching stick was used to work through the rotator cuff tear into the joint. Equipment was redirected back to the joint and with this third portal the biceps was able to be secured and amputated more readily using the loop and tack method with a suture tape FiberLink shuttled around the tendon, cinched, and then placed through the tendon in a ripstop fashion. The suture was withdrawn out the anterior portal for later fixation adjacent to the supraspinatus repair. Starting through the posterior portal, the arthroscope was directed into the subacromial space. A lateral 50 yard line lateral portal was created. A combination of power instruments and a radiofrequency ablator were used to debride bursitis anteriorly, posteriorly, and laterally as well as expose and smooth bone spurring on the undersurface of the acromion. The coracoacromial ligament was partially released. The bursectomy was completed viewing laterally and working from posteriorly and the rotator cuff was thoroughly inspected with findings noted above. A posterior superior lateral portal was established reviewing and alternating working with the lateral portal of the small full-thickness supraspinatus tear w as inspected. It was lightly debrided of friable tissue. The greater tuberosity was lightly debrided establishing a rough and bleeding bony bed optimal for bone and tendon healing. The cuff grasper was used to inspect the tear extent medial lateral and anterior to posterior it was relatively small and appropriate for single anchor repair. The biceps tendon repair suture was withdrawn through the tear and secured out anteriorly again at the anteriormost aspect of the tear margin. The self retrieving suture passer was then used to place an inverted horizontal mattress FiberTape about the tear with a ripstop suture tape FiberLink in cinch mode centrally. There was excellent tissue fixation and provisional reduction across the prepared footprint. The undersized punch was used to localize placement of single lateral anchor. The biceps tendon suture was left long and the supersize rotator sutures were short all placed through the anchor eyelet. A single 5.5 mm anchor was appropriately deployed with proper positioning on the biceps tendon at the superior aspect of the groove beneath the supraspinatus repair, which was tensioned appropriately with excellent reduction and across the greater tuberosity. Biceps was stable through direct arm pressure and testing. The rotator cuff repair was stable through motion and probing as well. After completion of the rotator cuff tear of the undersurface acromion was resected to open the subacromial space prevent recurrent bursal to full-thickness tearing and release bone marrow factors for healing. The shoulder was drained of arthroscopic fluid. All portal sites were copiously irrigated. These incisions were closed using 3-0 Monocryl in a buried fashion and then covered with Mastisol, Steri-Strips, Xeroform, dry gauze, and ABDs. The dressings were covered and secured with Medipore tape. The operative extremity was placed into a sling for immobilization. The patient awoke from anesthesia without complication and was transferred to the recovery room in a stable condition.
--- NOTE | 2022-10-03 08:49 | W.ANESPRE ---
General Info Date of Service Date Performed: 10/03/22 Height: 4 ft 11 in Weight: 69.4 kg Body Mass Index (BMI): 30.9 Surgical Procedure: Operation Date: 10/03/22 11:10 Proposed Procedure Side Surgeon p Shoulder Rotator Cuff Arthroscopic w/Extensive Debridement, Biceps Tenodesis, Subacromial Decompression Left Ollie Pradhan MD Meds Allergies and Home Medications Allergies Allergy/AdvReac Type Severity Reaction Status Date / Time metronidazole [From Flagyl] Allergy Unknown Skin Rash Verified 10/03/22 10:30 Sulfa (Sulfonamide Allergy Unknown Skin Rash Verified 10/03/22 10:30 Antibiotics) adhesive tape AdvReac Intermediate Skin Rash Verified 10/03/22 10:30 hydrocodone bitartrate AdvReac Intermediate Nausea, Verified 10/03/22 10:30 [From Butler] Dizziness/Lightheaded nickel AdvReac Unknown Itching Verified 10/03/22 10:30 Penicillins AdvReac Unknown Skin Rash Verified 10/03/22 10:30 gluten AdvReac Diarrhea Verified 10/03/22 10:30 lactose AdvReac Diarrhea Verified 10/03/22 10:30 Home Medication Medication Instructions Recorded cholecalciferol (vitamin D3) 25 1,000 unit PO DAILY 08/22/15 mcg (1,000 unit) capsule (Vitamin D3) omeprazole 20 mg capsule,delayed 20 mg PO DAILY 06/03/17 release meclizine 25 mg tablet (Antivert) 25 mg PO TID PRN PRN Vertigo #20 08/30/17 tabs metoprolol tartrate 25 mg tablet 25 mg PO HS 07/02/22 clobetasol 0.05 % topical ointment 0.05 applic topical PRN PRN 08/18/22 ondansetron HCl 8 mg tablet 8 mg PO PRN PRN 08/18/22 trazodone 100 mg tablet 100 mg PO HS 09/04/22 diazepam 5 mg tablet 2.5 mg PO HS 10/02/22 Current Visit Medications: Current Medications Generic Name Dose Route Start Last Admin Trade Name Freq PRN Reason Stop Dose Admin Ringer's Solution 1,000 mls @ 30 mls/hr 10/03/22 06:00 IV 11/01/22 23:59 INFUSION REYES Cefazolin Sodium/Dextrose 2 gm in 50 mls @ 100 mls/hr 10/03/22 06:00 Ancef Duplex IVPB 10/03/22 16:00 PREOP REYES IV Miscellaneous Supplies 1 each 10/03/22 06:00 Iv Access IV 11/01/22 23:59 DIRECTED REYES Oxycodone HCl 0 mg 10/03/22 07:19 Oxycodone 5 Mg Tab PO 11/02/22 07:18 Q3H PRN PRN Pain Sodium Chloride 0 ml 10/03/22 06:00 Normal Saline Flush 10 Ml Syr IV 11/01/22 23:59 PRN PRN Sodium Chloride 0 ml 10/03/22 06:00 Normal Saline 10 Ml Vial IJ 11/01/22 23:59 DIRECTED PRN Sterile Water 0 ml 10/03/22 06:00 Water,Injection,Sterile 10 Ml Vial IJ 11/01/22 23:59 DIRECTED PRN PFSH Active Problems Active Problems: Problem Status Onset Code Left rotator cuff tear M75.102 Diverticulitis of sigmoid colon K57.32 Nausea alone R11.0 Discharge planning issues Z02.9 Hepatic cyst K76.89 Abdominal pain R10.9 Medical History Medical History Depression Diastolic dysfunction Diverticulitis large intestine GERD (gastroesophageal reflux disease) Hypertension Insomnia Invasive ductal carcinoma of right breast in female Liver cyst Mitral regurgitation Obesity Obstructive sleep apnea Overactive bladder Psoriasis Vitamin D deficiency Surgical History Surgical History Breast, Lumpectomy Breast, Mastectomy Bilateral (09/18/15) Colonoscopy - MAC (08/18/17) ductal excision Tobacco Smoking/Tobacco Use Status: Never Alcohol Alcohol Intake: never Substance Use Substance use: Never Substance use type: does not use Vital Signs and Lab Results Lab Results Blood Type / Crossmatch: No Data to Display Complete Blood Count: No Data to Display Complete Metabolic Panel: No Data to Display Liver Function Panel: No Data to Display Coagulation Panel: No Data to Display Cardiac Panel: No Data to Display Arterial Blood Gas: No Data to Display Venous Blood Gas: No Data to Display Pancreas Panel: No Data to Display Thyroid Panel: No Data to Display Infectious Disease: No Data to Display Blood Cultures: No Data to Display Toxicology Panel: No Data to Display Imaging and Studies Imaging and Studies Study information below may be from another EMR and interpreted by another provider. Please see original notes in EMR for more complete details. EKG Summary: 08/18/2022: Exam: Resting ECG Reason for Exam: weak/dizzy/palpitations Patient Location: E HR:76 bpm ECG Measurements Heart Rate 76 AXIS MI 178 P 84 QRSd 93 QRS 48 QT 382 T99 QTc 428 Conclusion Sinus rhythm...normal P axis, V-rate 60- 99 Wandering baseline, will repeat I have reviewed and interpreted ECG and agree with software generated interpretation. Electronically signed by: <Electronically signed by Patsy Minaya M.D. in [place]> 08/19/22 0823 Cosigned by: Stress Test Summary: MPS: 05/17/13: No evidence of ischemia Echocardiogram Summary: 10/02/2022: EF 48%, Mild MR Anesthesia Assessment and Plan Anesthesia History Personal History: No History of Anesthesia Complications Family History: No Family History of Anesthesia Complications Exercise Tolerance Exercise Tolerance: Metabolic Equivalents>4 Pertinent Negatives Pertinent Negatives: No Symptoms of GERD, No Major Cardiovascular Symptoms or Complaints and No Major Pulmonary Symptoms or Complaints Cardiac & Pulmonary Exam Cardiac Exam: Normal S1/S2 Heart Sounds Pulmonary Exam: Clear Bilateral Breath Sounds Implantable Cardiac Device Does patient have a Pacemaker or an ICD?: No Airway Exam Known Difficult Airway: No Mallampati Class: 2 Mouth Opening: Normal (> 3cm) Thyromental Distance: Greater than 3 cm Neck Range of Motion: Full ROM Neck Circumference: Normal Teeth Condition: Normal Dentition (Some missing) ASA Classification ASA Score: ASA 2 Emergency Case?: No NPO Status NPO Status: NPO Clears >2 hours, Solids >8 hours Anesthesia Plan Resuscitation Status: Full Code Anesthesia Technique: General Anesthesia Airway Planned: Endotracheal Tube Pain Management: Surgeon and patient request nerve block (Patient Declines) Monitors Used: Standard Monitors
[2022-10-03] MEDS: Lactated Ringers 1,000 ML 30 ML IV (11:10)
[2022-10-03] MEDS: ceFAZolin 2 GM/50 ML BAG IVPB (13:00)
[2022-10-03] MEDS: Bupivacaine 0.5% Pres-Free W/EPI 30 ML VIAL (13:39)
--- NOTE | 2022-10-03 14:25 | W.ANESVAS ---
Arterial Line Placement Date Performed: 10/03/22 Procedure Time: 13:00 Procedure Location: Operating Room Requesting Provider: Gema Farias Timeout Performed: No Sedation Given (Indicate Dose Given): No Sedation given Patient Mental Status: Performed under general anesthesia Sterility: Hand Hygiene, Surgical Cap, Surgical Mask, Sterile Gloves and Chlorhexidine Laterality: Right Insertion Site: Radial Arterial Line Catheter: 20G Arrow Arterial Line Procedure: Vessel accessed with catheter over needle Dressing: Tegaderm Applied Ultrasound: Sterile probe cover and gel used Ultrasound Image Saved?: No Number of Attempts (See previous attempts in note section): 2 (First attempt no ultrasound, vessel accessed, unable to thread catheter) Procedure Tolerated: Other Procedure Outcome: Successful Performed By: Gema Farias
[2022-10-03] MEDS: ePHEDrine 25 MG/5 ML Syringe IVP (14:38)
--- NOTE | 2022-10-03 15:43 | W.ANESPOSTOP ---
Postoperative Evaluation Date, Time and Location Date Performed: 10/03/22 Time Performed: 15:43 Patient Location: PACU Vital Signs Most Recent Imported Vital Signs: Most Recent Vital Signs Temp Pulse Resp BP Pulse Ox 36.4 C L 90 21 138/51 L 94 10/03/22 15:36 10/03/22 15:36 10/03/22 15:36 10/03/22 15:36 10/03/22 15:36 Pain Score Most Recent Pain Score: Most Recent Pain Score Pain Level 0 10/03/22 10:11 Assessment Mental Status: Arousable with meaningful communication Airway and Respiratory Function: Patent airway with normal (patient baseline) respiratory exam Cardiovascular Function: Hemodynamically Stable Hydration Status: Adequately Hydrated Nausea & Vomiting: No Nausea or Vomiting Pain: Pain is tolerable per patient (5/10, reports as tolerable) Peripheral Nerve Block: Patient did not receive a nerve block
[2022-10-03] MEDS: oxyCODONE 5 MG TAB PO (16:25)
--- NOTE | 2022-10-03 18:22 | PDOC.ANES ---
Date of service: 10/03/22 Time of Service: 18:05 Anesthesia Note Report Anesthesia Note: Asked by DSU RN to assess patient for ability to go home. While she is hemodynamically stable and mostly comfortable, she is still very weak. I find her sitting in a chair and a strong 1 assist to stand. When walking she takes 4 shuffle steps which is not normal for her and is not supporting her weight. If she were to go home, I feel she would be a high fall risk and as of now this would create an unsafe situation. Based on this information, she will go to the surgical floor until stronger to be discharged from there to home.
[2022-10-03] MEDS: Ondansetron O.D.T. 4 MG TABEF (18:35)
[2022-10-03] MEDS: Lactated Ringers 1,000 ML 75 ML IV (20:04)
[2022-10-03] MEDS: Ondansetron O.D.T. 4 MG TABEF PO (20:04)
[2022-10-03] MEDS: Metoprolol 25 MG TAB PO (23:02)
[2022-10-03] MEDS: diazePAM 5 MG TAB 2.5 MG PO (23:03)
[2022-10-03] MEDS: traZODone 100 MG TAB PO (23:03)
[2022-10-04 04:29] VITALS: BP 140/71; PULSE 89; RESP 18; TEMP 36.2; O2SAT 96
--- NOTE | 2022-10-04 07:07 | DSE_ITS ---
Date of service: 10/04/22 Time of Service: 07:20 DS: Diagnosis Discharge Diagnosis (1) Left rotator cuff tear: Status: Acute Discharge Plan Disposition Patient Disposition: Home Condition: Stable Discharge Details Reason For Visit: Left rotator cuff tear Admit Date/Time: 10/03/22 21:22 Admit Provider: Ollie Pradhan Attending Provider: Ollie Pradhan Primary Care Provider: Rabia Jorge Home Meds and New Rx's Prescriptions: New naproxen 250 mg tablet 250 - 500 mg PO BID PRNQty: 40 0RF Rx Instructions: take with a meal aspirin 81 mg tablet,delayed release (DR/EC) 81 mg PO DAILY 7 Days Qty: 7 0RF tramadol 50 mg tablet 50 mg PO Q8H PRN (Reason: severe pain) Qty: 12 0RF ondansetron 4 mg tablet,disintegrating 4 mg PO Q6H PRN (Reason: nausea or vomiting) Qty: 5 0RF Continued metoprolol tartrate 25 mg tablet 25 mg PO HS trazodone 100 mg tablet 100 mg PO HS cholecalciferol (vitamin D3) [Vitamin D3] 1,000 UNIT capsule 1,000 unit PO DAILY ondansetron HCl 8 mg tablet 8 mg PO PRN PRN Patient Comments: TAKE 1 TABLET BY MOUTH THREE TIMES DAILY NEEDED clobetasol 0.05 % ointment 0.05 applic TOPICAL PRN PRN Patient Comments: Apply 1 a small amount to affected area twice a day as needed For vaginal itching diazepam 5 mg tablet 2.5 mg PO HS Patient Comments: TAKE 1 TABLET BY MOUTH ONCE DAILY AT NIGHT NEEDED omeprazole 20 MG capsule,delayed release(DR/EC) 20 mg PO DAILY 0RF meclizine [Antivert] 25 MG tablet 25 mg PO TID PRN PRN (Reason: Vertigo) Qty: 20 0RF Discontinued ibuprofen 600 MG tablet 600 mg PO Q6H PRN PRNQty: 40 0RF Discharge Instructions Additional Instructions: Surgery: Left shoulder arthroscopy with rotator cuff repair (supraspinatus), biceps tenodesis, extensive debridement, and subacromial decompression. Activity: For 6 weeks, you should keep your arm at your side in a neutral position at all times except for physical therapy. Do not try to lift or raise your arm using your own muscles. You should use the sling whenever you are out of the house. You may have to adjust the abduction pillow or remove it for comfort. At home it is best to remove the sling and rest the arm on a pillow at your side or support the operative side with your other hand. You may allow the arm to dangle at your side. A physical therapy prescription will be sent electronically to begin in about 3 weeks. STANDARD protocol. Prescriptions: Aspirin 81 mg take 1 daily to prevent a blood clot for 7 days Naproxen 250 mg take 1-2 every 12 hours with a meal as needed for moderate pain Tramadol 50 mg take 1 every 8 hours as needed for severe pain You may use [id number] Tylenol (acetaminophen) as needed for mild pain. These pain medications may be taken all at once or in different combinations as needed. Ondansetron (Zofran) 4 mg take 1 orally dissolving tablet every 6 hours as needed for nausea or vomiting Also, recommend Colace (docusate) as a stool softener as surgery and pain medicine cause constipation. You may try [id number] diphenhydramine (Benadryl) 25-50 mg nightly as a sleep aid Dressings: Remove shoulder bandage after 3 days. Leave the sticky Steri-Strips in place until they fall off or remove them after you shower. Cover the incisions with Band-Aids or leave them open to air. You may shower after 5 days. Follow-up: 10-[address] Pradhan You may take off the leg compression stockings this evening at home. You may also leave them on a few days longer if you have a history of leg swelling or edema. Let us know right away if you develop any redness, drainage, fevers, chest pain, or trouble breathing. Do not drink alcohol or drive for at least 24 hours after anesthesia. Please call the office during business hours with any questions or concerns. Stand Alone Forms: Anesthesia Discharge Inst., Emilio Ruby ([facility]) Referrals: Ollie Pradhan MD [ [facility] STAFF PHYSICIAN] - 10/16/22 1:00 pm Activity:: RCR protocol Equipment/Supplies:: SLING Diet:: As Tolerated Discharge Orders Discharge Orders: Discharge Order (Routine); Ordered 10/04/22 Ordered By: Ollie Pradhan DS: Summary Time Spent with Patient providing and/or coordinating discharge services: Less than 30 minutes Status at Discharge Functional status at discharge: independent ambulation Overall status at discharge: patient is progressing back to baseline Mental Status: mental status grossly normal Speech and Movement: speech and movement normal Mood: congruent mood Affect: normal affect Exam Narrative Exam Narrative: Awake alert oriented, comfortable, nausea resolved, left upper extremity neurovascular intact, no signs of blood clot or infection. Psych Mental Status: mental status grossly normal Speech and Movement: speech and movement normal Mood: congruent mood Affect: normal affect DS: Data Vitals/I&O Vitals and I&O: Vital Signs Temperature 97.2 F L 10/04/22 04:29 Temperature Source Tympanic 10/04/22 04:29 Pulse 89 10/04/22 04:29 Pulse Rhythm Regular 10/03/22 20:10 Respiratory Rate 18 10/04/22 04:29 Respiratory Depth Normal 10/03/22 10:11 Blood Pressure 140/71 10/04/22 04:29 Blood Pressure Mean 87 10/03/22 16:15 Blood Pressure Position Sitting 10/03/22 16:15 Pulse Oximetry 96 10/04/22 04:29 Respiratory End-tidal CO2 38 10/03/22 15:49 Oxygen Delivery Method Room Air 10/04/22 04:29 Oxygen Flow Rate 0 10/04/22 04:29 Pain Level 3 10/04/22 04:29 Comment pt lying on right side. pts right leg used for blood pressure reading. 10/04/22 04:29 Intake & Output 10/03/22 10/03/22 10/04/22 11:59 23:59 11:59 Intake Total 998 / 998 Output Total 300 / 300 500 / 500 Balance 698 / 698 -500 / -500 Weight 154 lb 15.759 oz 160 lb 7.944 oz Intake: IV 758 / 758 Oral 240 / 240 Output: Urine 100 / 100 500 / 500 Emesis 200 / 200 Other: Urine Color Yellow Pale Yellow Urine Appearance Clear Clear Comment commode Emesis Description None PFSH All Active Problems Left rotator cuff tear (Acute) Diverticulitis of sigmoid colon (Acute) Nausea alone (Acute) Discharge planning issues (Acute) Hepatic cyst (Acute) Abdominal pain (Acute) Medical History Depression Diastolic dysfunction Diverticulitis large intestine GERD (gastroesophageal reflux disease) Hypertension Insomnia Invasive ductal carcinoma of right breast in female Liver cyst Mitral regurgitation Obesity Obstructive sleep apnea Overactive bladder Psoriasis Vitamin D deficiency Surgical History Breast, Lumpectomy Breast, Mastectomy Bilateral (09/18/15) Colonoscopy - MAC (08/18/17) ductal excision Social History Smoking/Tobacco Use Status: Never Smoking risk assessment performed?: Yes Alcohol Intake: never Drug use: Never Substance use type: does not use Housing: house Current gender identity: female Do you feel safe at home: Yes Do you feel safe in your relationship?: Yes Time Spent with Patient Time Spent with Patient: <45 minutes Time was spent: preparing to see the patient(eg.review tests), obtaining and/or reviewing separately otained hiistory, referring, communicating with other health care team coordinator scheduler and counseling the patient
[2022-10-04 07:21] VITALS: BP 161/81; PULSE 87; RESP 17; TEMP 36.8; O2SAT 97
[2022-10-04] MEDS: Cholecalciferol (Vitamin D3) 1,000 UNIT TAB 1000 UNITS PO (08:15)
[2022-10-04] MEDS: Omeprazole 20 MG CAPCR PO (08:15)
--- NOTE | 2022-10-04 09:00 | PDOC.ANES ---
Date of service: 10/04/22 Time of Service: 08:35 Anesthesia Note Report Anesthesia Note: Followed up with patient this morning after late afternoon admission for nausea and unbalanced gait. Patient was up sitting in a chair this morning and states she feels at baseline and per the RN, has ambulated well and is steady. No deficits noted. Patient looking forward to go home.
--- NOTE | 2022-10-04 10:38 | PDOC.CMDIS ---
Date of service: 10/04/22 Time of Service: 10:38 LACE Index Scoring Tool Questions: Length of Stay (in days): 1 Was the patient admitted via the E.D.?: No E.D. Visits: 1 Answers: Total Score: 2 Risk of Readmission: Low Risk Care Management Discharge Plan Reason for Hospitalization: Left rotator cuff tear Discharge Plan: Chloé is discharged home via private vehicle with family. She will follow up with community providers and her discharge plan of care as instructed. Follow up with Dr. Pradhan on 10/16/22, as scheduled. No new VNA services are ordered prior to discharge. Patient/Family Education Needs: Review discharge instructions, limitations and plan to follow up with Dr. Pradhan. Discuss ask me three.
== END 2022-10-04 09:55 | disposition home or self-care (01) ==
LOC: MS 21:23
PROVIDERS: Admitting Provider Student in an Organized Health Care Education/Training Program; PCP Physician Assistant Medical; Visit Provider Student in an Organized Health Care Education/Training Program
PROC: (CPT 29827; principal; 2022-10-03 11:00)
DX: M75.102 Unspecified rotator cuff tear or rupture of left shoulder, not specified as traumatic (principal); F32.A Depression, unspecified; K21.9 Gastro-esophageal reflux disease without esophagitis; I10 Essential (primary) hypertension; G47.00 Insomnia, unspecified; I34.0 Nonrheumatic mitral (valve) insufficiency; E66.9 Obesity, unspecified; Z68.32 Body mass index [BMI] 32.0-32.9, adult; G47.33 Obstructive sleep apnea (adult) (pediatric); E55.9 Vitamin D deficiency, unspecified; L40.9 Psoriasis, unspecified; N32.81 Overactive bladder; M75.52 Bursitis of left shoulder; M75.22 Bicipital tendinitis, left shoulder; M94.212 Chondromalacia, left shoulder; M75.42 Impingement syndrome of left shoulder; M24.112 Other articular cartilage disorders, left shoulder; M65.812 Other synovitis and tenosynovitis, left shoulder
CPT/HCPCS: 29827; 29828; 29823; 29826; J0131; J0690; J1100; J1885; J2001; J2250; J2371; J2405; J2704; J3010

== ENCOUNTER → 2022-10-16 12:44 | Outpatient (BNVA) | payer OTHER, SELFPAY | PROVIDERS: PCP Physician Assistant Medical; Referring Provider Physician Assistant Medical; Visit Provider Student in an Organized Health Care Education/Training Program | DX: Z47.89 Encounter for other orthopedic aftercare (principal); M75.102 Unspecified rotator cuff tear or rupture of left shoulder, not specified as traumatic ==

== ENCOUNTER → 2022-11-27 13:08 | Outpatient (BNVA) | payer OTHER, SELFPAY | PROVIDERS: PCP Physician Assistant Medical; Referring Provider Physician Assistant Medical; Visit Provider Student in an Organized Health Care Education/Training Program | DX: Z47.89 Encounter for other orthopedic aftercare (principal); M75.102 Unspecified rotator cuff tear or rupture of left shoulder, not specified as traumatic ==

== ENCOUNTER 2022-12-17 11:43 | Emergency (ER) | payer OTHER, SELFPAY ==
[2022-12-17 11:54] VITALS: BP 174/112; PULSE 78; RESP 18; TEMP 36.8; O2SAT 99
--- NOTE | 2022-12-17 11:58 | DI.RAD_ITS ---
Exam(s) XR PELVIS AP XR FEMUR LT EXAM: XR PELVIS AP and XR femur LT CLINICAL HISTORY: Left hip pain. TECHNIQUE: 2D digital imaging was performed.Six images were obtained. COMPARISON: No priors for comparison. FINDINGS: BONES: No acute fracture is present. No bony destructive lesion is seen. JOINTS: No dislocation present. There are degenerative changes seen in the lower lumbar spine. Mild degenerative changes are also seen at the sacroiliac joints. The symphysis pubis is unremarkable. T he hips are well maintained. SOFT TISSUE: Atherosclerosis is present. IMPRESSION: 1. No acute abnormality. 2. Degenerative changes seen in the lower lumbar spine and the sacroiliac joints. DATA REPOSITORY: RADIATION DOSE DELIVERED:
--- NOTE | 2022-12-17 11:59 | ED.GENADUL_ITS ---
Discharge Plan Disposition Patient Disposition: Home Discharge Details Clinical Impression: History of falling, Acute pain of left hip Primary Care Provider: Rabia Jorge ED Provider: Sergei Hyatt Home Meds and New Rx's Prescriptions: Continued metoprolol tartrate 25 mg tablet 25 mg PO HS trazodone 100 mg tablet 100 mg PO HS cholecalciferol (vitamin D3) [Vitamin D3] 1,000 UNIT capsule 1,000 unit PO DAILY ondansetron HCl 8 mg tablet 8 mg PO PRN PRN Patient Comments: TAKE 1 TABLET BY MOUTH THREE TIMES DAILY NEEDED clobetasol 0.05 % ointment 0.05 applic TOPICAL PRN PRN Patient Comments: Apply 1 a small amount to affected area twice a day as needed For vaginal itching ondansetron 4 mg tablet,disintegrating 4 mg PO Q6H PRN (Reason: nausea or vomiting) Qty: 5 0RF omeprazole 20 MG capsule,delayed release(DR/EC) 20 mg PO DAILY 0RF meclizine [Antivert] 25 MG tablet 25 mg PO TID PRN PRN (Reason: Vertigo) Qty: 20 0RF Discharge Instructions Additional Instructions: You were seen in the emergency department for your hip pain. As we discussed, your x-ray showed no sign of any fractures. Please ice your hip and rest your hip tonight. Please gradually increase your activity over the next several days. If you have increasing pain please return to the emergency department. Insert pain for your pain please take medications as follows: 1. Take acetaminophen (Tylenol), 1,000 mg (two 500 mg tabs) every 6 hours 2. Take ibuprofen (Advil), 200 mg every 6 hours. HPI General Date/Time Provider Initiated Documentation: 12/17/22 11:55 . HPI Narrative: MDM Primary survey intact. Reassuring shock index. On secondary survey patient has left gluteal and left hip pain. She has been ambulatory since her fall and as result given her limited mechanism my suspicion for any acute osseous abnormality is relatively low. As result, if her x-ray is negative will defer CT scan and MRI at this early juncture. No midline thoracic nor lumbar spinal tenderness to suggest benefit from CT scan. No head strike to suggest benefit from CT head. Patient is negative based on Nexus criteria is no indication for CT cervical spine. Given clear lungs and no chest pain my suspicion is low for pneumothorax so will defer chest x-ray. Given reassuring vascular exam I am not concerned for any critical limb ischemia so I do not feel that the patient requires a CT angiogram. No pain out of proportion to suggest necrotizing soft tissue infection. Per Nexus criteria, cervical CT not obtained. The patient had no c-spine midline tenderness, no evidence of intoxication, was AAOx3, had no focal neurological deficits, and no painful distracting injuries. No preceding syncope no chest pain so we will defer ECG troponin and D-dimer testing. No preceding nausea nor vomiting so my suspicion for acute electrolyte abnormalities is exceedingly low. We will treat pain orally with acetaminophen, 200 mg ibuprofen, 5 mg oxycodone, and Lidoderm patch. Will reassess following imaging. 2:30 p.m. X-rays read as negative. I advised patient to rest and ice her hip. I did advise that she should return to the emergency department if she did not have improved pain after 1 or 2 days of resting. I counseled her on dosing acetaminophen and low-dose ibuprofen. I advised that CT would be more sensitive compared to x-ray in terms of evaluating for acute osseous abnormality. Given her ambulatory status it is most likely that she has a hip contusion. Patient understood her return indications and we will proceed with empiric trial of expectant outpatient management. Will withhold oral opiates as an outpatient given no acute osseous abnormalities. Chronic conditions affecting the care of the patient: Recent left rotator cuff repair History obtained from an outside historian: N/A External record review: [facility] [place] EMR Medications: Acetaminophen ibuprofen Lidoderm oxycodone Social determinants of health affecting disposition: N/A Management discussed with: N/A Treatment/interventions considered: CT scan but deferred Response to therapies provided: Improved pain following treatment in the ED HPI This is a 72-year-old female not on anticoagulants with history of recent left rotator cuff repair now with left hip pain status post fall this morning. Patient reports that she fell down outside because she slipped on some ice. She fell down 4 steps on her left hip. Given her recent left rotator cuff repair she did not attempt to reach out to grab the railing. She has had no neck pain. She had no preceding chest pain nausea dizziness nor vomiting. She does not feel short of breath. She does not have chest pain at the moment. No preceding syncope. No confusion. She has been ambulatory since her injury. Exam General: Well-appearing in no acute distress speaking in complete sentences. Head: Normocephalic, atraumatic. Eye: Extraocular eye movements intact. No conjunctival injection. No scleral icterus. Ear, nose, mouth, throat: Grossly normal inspection. Normal voice, handling secretions normally. Neck: Trachea midline. No midline cervical spinal tenderness. Cardiovascular: Well-perfused distal extremities. Regular rate and rhythm. Respiratory: Nonlabored respiration. Clear lungs bilaterally. Back: No step-offs nor deformities. No midline thoracic nor lumbar spinal tenderness. Gastrointestinal: Nondistended abdomen. Musculoskeletal: No edema. Moving all 4 extremities spontaneously. No obvious deformities to left lower extremity. Pelvis stable to anterior posterior compression. No pain with passive range of motion to left lower extremity. Patient is able to fully flex and extend on her left hip. No knee tenderness. No tenderness throughout the left thigh and calf. 5 out of 5 strength bilaterally dorsi and plantarflexion. Left foot warm well perfused with 2+ PT and DP pulses. Skin: Normal for age and race, grossly normal temperature and turgor. No acute rash. Neurologic: Alert and appropriate, no apparent acute deficits. Psychiatric: Mood and manner are appropriate. Grooming and personal hygiene are appropriate. Related Data Home Medications Medication Instructions Recorded Confirmed cholecalciferol (vitamin D3) 25 1,000 unit PO DAILY 08/22/15 11/27/22 mcg (1,000 unit) capsule (Vitamin D3) omeprazole 20 mg capsule,delayed 20 mg PO DAILY 06/03/17 11/27/22 release meclizine 25 mg tablet (Antivert) 25 mg PO TID PRN PRN Vertigo #20 08/30/17 11/27/22 tabs metoprolol tartrate 25 mg tablet 25 mg PO HS 07/02/22 11/27/22 clobetasol 0.05 % topical ointment 0.05 applic topical PRN PRN 08/18/22 11/27/22 ondansetron HCl 8 mg tablet 8 mg PO PRN PRN 08/18/22 11/27/22 trazodone 100 mg tablet 100 mg PO HS 09/04/22 11/27/22 ondansetron 4 mg disintegrating 4 mg PO Q6H PRN nausea or vomiting 10/03/22 11/27/22 tablet #5 tabs Previous Rx's Medication Instructions Recorded omeprazole 20 mg capsule,delayed 20 mg PO DAILY 06/03/17 release meclizine 25 mg tablet (Antivert) 25 mg PO TID PRN PRN Vertigo #20 08/30/17 tabs ondansetron 4 mg disintegrating 4 mg PO Q6H PRN nausea or vomiting 10/03/22 tablet #5 tabs Allergies Allergy/AdvReac Type Severity Reaction Status Date / Time metronidazole [From Flagyl] Allergy Unknown Skin Rash Verified 11/27/22 13:14 Sulfa (Sulfonamide Allergy Unknown Skin Rash Verified 11/27/22 13:14 Antibiotics) adhesive tape AdvReac Intermediate Skin Rash Verified 11/27/22 13:14 hydrocodone bitartrate AdvReac Intermediate Nausea, Verified 11/27/22 13:14 [From [place]] Dizziness/Lightheaded nickel AdvReac Unknown Itching Verified 11/27/22 13:14 Penicillins AdvReac Unknown Skin Rash Verified 11/27/22 13:14 gluten AdvReac Diarrhea Verified 11/27/22 13:14 lactose AdvReac Diarrhea Verified 11/27/22 13:14 General Stated Complaint: Orthopedic GROVER: 4 PFSH All Active Problems (Updated 12/17/22 @ 14:27 by Sergei Hyatt MD) Acute pain of left hip (Acute) History of falling (Acute) Left rotator cuff tear (Acute) Diverticulitis of sigmoid colon (Acute) Nausea alone (Acute) Discharge planning issues (Acute) Hepatic cyst (Acute) Abdominal pain (Acute) Medical History Depression Diastolic dysfunction Diverticulitis large intestine GERD (gastroesophageal reflux disease) Hypertension Insomnia Invasive ductal carcinoma of right breast in female Liver cyst Mitral regurgitation Obesity Obstructive sleep apnea Overactive bladder Psoriasis Vitamin D deficiency Surgical History Breast, Lumpectomy Breast, Mastectomy Bilateral (09/18/15) Colonoscopy - MAC (08/18/17) ductal excision Social History Smoking/Tobacco Use Status: Never Smoking risk assessment performed?: Yes Alcohol Intake: never Drug use: Never Substance use type: does not use Housing: house Current gender identity: female Do you feel safe at home: Yes Do you feel safe in your relationship?: Yes Course Vital Signs Vital signs: Vital Signs Temperature 36.8 C 12/17/22 11:54 Pulse 78 12/17/22 11:54 Respiratory Rate 18 12/17/22 11:54 Blood Pressure 174/112 H 12/17/22 11:54 Pulse Oximetry 99 12/17/22 11:54 Temperature 36.8 C 12/17/22 11:54 Temperature Source Oral 12/17/22 11:54 Pulse 78 12/17/22 11:54 Respiratory Rate 18 12/17/22 11:54 Blood Pressure 174/112 H 12/17/22 11:54 Blood Pressure Position Sitting 12/17/22 11:54 Pulse Oximetry 99 12/17/22 11:54 Oxygen Delivery Method Room Air 12/17/22 11:54 Oxygen Flow Rate 0 12/17/22 11:54
[2022-12-17] MEDS: Acetaminophen 500 MG TAB 1000 MG PO (14:10)
[2022-12-17] MEDS: oxyCODONE 5 MG TAB PO (14:11)
[2022-12-17] MEDS: Lidocaine 5% Patch 1 PATCH TP (14:11)
[2022-12-17] MEDS: Ibuprofen 200 MG TAB PO (14:12)
[2022-12-17 14:54] VITALS: BP 153/75; PULSE 64; O2SAT 98
== END 2022-12-17 15:09 | disposition home or self-care (01) ==
PROVIDERS: Emergency Provider Emergency Medicine; PCP Physician Assistant Medical
DX: M25.552 Pain in left hip (principal); M47.816 Spondylosis without myelopathy or radiculopathy, lumbar region; M47.818 Spondylosis without myelopathy or radiculopathy, sacral and sacrococcygeal region; I10 Essential (primary) hypertension; W10.8XXA Fall (on) (from) other stairs and steps, initial encounter; Y93.01 Activity, walking, marching and hiking; Y92.019 Unspecified place in single-family (private) house as the place of occurrence of the external cause
CPT/HCPCS: 73552; 99283; 72170

== ENCOUNTER → 2023-01-15 02:50 | Outpatient (CLI) | payer OTHER, SELFPAY ==
--- NOTE | 2023-01-15 | DI.MRI_ITS ---
Exam(s) MR PELVIS WO EXAM: MR PELVIS WO CLINICAL HISTORY: BUTTOCK P AIN,R52,,SI JOINT PAIN,M53.3 TECHNIQUE: Multiplanar multisequence MRI of Pelvis was performed COMPARISON: CR XR PELVIS AP from 12/17/2022 FINDINGS: Bones: There is no fracture or contusion pattern. There is mild hyperintense signal seen on the sac ral aspect of the SI joints bilaterally likely reflective of the degenerative changes. No erosions o r ankylosis is seen. Musculotendinous structures: Musculotendinous structures demonstrate no abnormality. Intrapelvic str uctures demonstrate no significant abnormality. Soft tissues: Note is made of diverticulosis of the colon. No focal fluid collections or soft tissue masses are appreciated. IMPRESSION: 1. No evidence of an occult fracture. 2. Mild hyperintense signal seen on the sacral side of the sacroiliac joints bilaterally which likely reflects degenerative changes. No erosions or ankylosis are seen. Sacroiliitis is considered less likely. 3. Incidental note is made of colonic diverticulosis. DATA REPOSITORY:
== END ==
PROVIDERS: PCP Physician Assistant Medical; Visit Provider Physician Assistant Medical
DX: M46.1 Sacroiliitis, not elsewhere classified (principal)
CPT/HCPCS: 72195

== ENCOUNTER → 2023-01-29 12:55 | Outpatient (BNVA) | payer OTHER, SELFPAY | PROVIDERS: PCP Physician Assistant Medical; Visit Provider Student in an Organized Health Care Education/Training Program | DX: M75.102 Unspecified rotator cuff tear or rupture of left shoulder, not specified as traumatic (principal) | CPT/HCPCS: 99213 ==

== ENCOUNTER 2023-03-21 16:10 | Outpatient (REF) | payer OTHER, SELFPAY | END 2023-03-21 16:11 | disposition home or self-care (01) | LOC: NCHCN 16:10 | PROVIDERS: PCP Physician Assistant Medical; Visit Provider Physician Assistant Medical | DX: N39.0 Urinary tract infection, site not specified (principal) | CPT/HCPCS: 87086 ==

== ENCOUNTER 2023-04-02 19:01 | Outpatient (REF) | payer OTHER, SELFPAY ==
[2023-04-02 19:52] LABS: Abs Immature Grans 0.03 10^3/uL (0.0-0.06); Absolute Basophil Count 0.04 10^3/uL (0.0-0.2); Absolute Lymphocyte Count 2.78 10^3/uL (1.2-3.4); Absolute Monocyte Count 0.45 10^3/uL (0.1-0.8); Absolute Neutrophil Count 5.58 10^3/uL (1.2-6.7); Basophils % 0.4; Eosinophils % 1.1; HCT 41.9 % (36.0-46.0); HGB 13.8 g/dL (11.2-15.7); Immature Grans % 0.3; MCH 29.2 pg (27.0-33.0); MCHC 32.9 % (32.0-36.0); MCV 89 fL (80-95); MPV 10.7 fL (8.0-11.0); Neutrophils % 62.2; Platelet Count 357 10^3/uL (130-400); RBC 4.73 10^6/uL (3.93-5.22); RDW 12.6 % (11.7-14.6); RDW-SD 41.3 fL; WBC 8.98 10^3/uL (4.4-10.8)
[2023-04-02 20:10] LABS: ALT 19 U/L (14-59); AST 19 U/L (15-37); Albumin 3.7 g/dL (3.4-5.0); Alkaline Phosphatase 108 U/L (46-116); Anion Gap 10.2 mmol/L (3-11); BUN 11 mg/dL (7-18); Bilirubin, Total 0.6 mg/dL (0.2-1.0); CO2 27.8 mmol/L (21.0-32.0); CREATININE 0.8 mg/dL (0.55-1.02); Calcium 9.3 mg/dL (8.5-10.1); Chloride 103 mmol/L (98-107); Estimated GFR 79.22 (mL/min/1.73m2); Glucose 86 mg/dL (74-106); Potassium 3.6 mmol/L (3.5-5.1); Sodium 141 mmol/L (136-145)
[2023-04-02 20:23] LABS: Hemoglobin A1C 5.3 % (<5.7)
== END 2023-04-02 19:02 | disposition home or self-care (01) ==
LOC: NCHCN 19:01
PROVIDERS: PCP Physician Assistant Medical; Visit Provider Physician Assistant Medical
DX: R53.83 Other fatigue (principal); R35.0 Frequency of micturition; R82.89 Other abnormal findings on cytological and histological examination of urine
CPT/HCPCS: 80053; 82306; 83036; 85025; 87086; 87480; 87510; 87660

== ENCOUNTER → 2023-06-26 00:42 | Outpatient (CLI) | payer OTHER, SELFPAY ==
--- NOTE | 2023-06-26 | DI.CT_ITS ---
Exam(s) CT ABDOMEN PELVIS W EXAM: CT ABDOMEN PELVIS W CLINICAL HISTORY: R10.30 Lower Abd pain,H/O DIVERTICULITIS. TECHNIQUE: Imaging Protocol: Axial computed tomography images with coronal and sagittal reformatted images were created and reviewed CONTRAST MATERIAL: Intravenous: Omnipaque 350 Contrast volume:100 ml Oral: yes-900 mL COMPARISON: CT CT ABDOMEN PELVIS WO from 06/28/2022 FINDINGS: ABDOMEN and PELVIS: Lung Bases: No acute findings. Liver: Normal density. No suspicious mass. Decrease in size of the largest liver cyst. Gallbladder and biliary tract: No radiodense calculus. No biliary dilation. Pancreas: Normal density. No abnormal calcifications or inflammatory process. No evidence of mass. Spleen: Normal. Kidneys: Normal size, contour and axis. No radiodense stones. No obstructive uropathy. No suspicious masses seen. Adrenal glands: No masses seen. Vasculature: Abdominal aorta non-dilated. Soft tissues: Unremarkable. Bladder: No gross wall thickening. No calculi.No focal mass. Bowel: No obstruction. Diverticulosis transverse colon through distal sigmoid. No surrounding infl ammation visible.. Appendix normal. Peritoneal cavity: No ascites. No focal collection. No mesenteric inflammatory response. Bones: Degenerative changes greatest at L5-S1. Reproductive organs: Unremarkable. Lymph nodes: No pathologically enlarged lymph nodes. IMPRESSION:: Diverticulosis. No diverticulitis is visible. RADIATION DOSE DELIVERED: 774.78mGy.cm Total DLP DATA REPOSITORY: All CT scans at this facility are submitted to the National Radiology Data Registry (NRDR) Dose Index Registry (DIR) with the [employer] (A[employer]). RADIATION OPTIMIZATION: All CT scans at this facility use at least one of these dose optimization te chniques: automated exposure control; mA and/or kV adjustment per patient size (includes targeted exa ms where dose is matched to clinical indication); or iterative reconstruction.
[2023-06-26 14:29] LABS: Estimated GFR 60.61 (mL/min/1.73m2)
[2023-06-26] MEDS: Barium Sulfate 2% W/V-Berry Smoothie 450 ML BTL PO ×2 (14:56→14:59)
[2023-06-26] MEDS: Normal Saline - Diluent 50 ML VIAL IJ (16:05)
[2023-06-26] MEDS: Omnipaque 350 MG/ML 100 ML BTL IJ (16:05)
== END ==
PROVIDERS: PCP Physician Assistant Medical; Visit Provider Nurse Practitioner Family
DX: K57.30 Diverticulosis of large intestine without perforation or abscess without bleeding (principal)
CPT/HCPCS: 74177; 82565; J3490

== ENCOUNTER → 2023-08-26 07:37 | Outpatient (BNVA) | payer OTHER, SELFPAY | PROVIDERS: PCP Physician Assistant Medical; Referring Provider Physician Assistant Medical; Visit Provider Podiatrist | DX: L60.0 Ingrowing nail (principal); M79.671 Pain in right foot; M79.672 Pain in left foot | CPT/HCPCS: 11750; 99213 ==

== ENCOUNTER → 2023-09-12 00:06 | Outpatient (CLI) | payer OTHER, SELFPAY ==
--- NOTE | 2023-09-12 13:55 | DI.RAD_ITS ---
Exam(s) XR FOOT RT COMPLETE EXAM: XR FOOT RT COMPLETE CLINICAL HISTORY: bunions,pain rt foot,m79.671. TECHNIQUE: 2D digital imaging was performed. COMPARISON: CR XR FOOT LT COMPLETE from 09/12/2023 FINDINGS: 3 views No evidence of fracture or diastasis of the Lisfranc joint. Great toe metatarsophalangeal joint appe ars unremarkable. There is mild subluxation of the 2nd and 3rd metatarsal joints. There is offset o f the proximal interphalangeal joint of the 2nd toe. Subluxation versus flexion deformity. Other in terphalangeal joints appear unremarkable with the exception of the velum mantle fusion across the DIP joint of the 5th toe. There is also a bone sliver off the medial aspect of the base of the proximal phalanx of the 5th toe measuring 4 x 1 mm. No significant osseous lesion at this level elsewhere in the foot. There is a moderate size inferior calcaneal spur. Also moderate size enthesophyte on the posterior c alcaneus Achilles insertion site. IMPRESSION: Findings at the MTP joints as above as well as at the PIP joint of the 2nd toe. Correlation with cli nical findings recommended. DATA REPOSITORY: RADIATION DOSE DELIVERED:
--- NOTE | 2023-09-12 14:00 | DI.RAD_ITS ---
Exam(s) XR FOOT LT COMPLETE EXAM: XR FOOT LT COMPLETE CLINICAL HISTORY: Pain in left foot,M79.672. TECHNIQUE: 2D digital imaging was performed. COMPARISON: CR RIGHT FOOT COMPLETE from 11/08/2011 FINDINGS: 3 views There is no evidence of acute fracture nor diastasis of the Lisfranc joint. Great toe metatarsophala ngeal joint exhibits mild degenerative changes. There is a 1 millimeter calcific density off the lat eral aspect of the base of the proximal phalanx of the 2nd toe. There is also a calcific density adj acent to the medial aspect of the head of the middle phalanx of the 2nd toe. There is fusion across the distal interphalangeal joints of the 3rd, 4th, and 5th toes. Probably developmental. There also is a corticated calcific density measuring 3 x 2 mm located adjacent to the more lateral t he 2 sesamoid bones subjacent to the great toe metatarsal head. An even smaller 1 millimeter calcifi c density seen in the soft tissues off the medial aspect of the head of the great toe metatarsal. Tarsometatarsal joints appear intact. There is a moderate-large inferior calcaneal spur. Also moder ate size enthesophyte at the Achilles insertion on the posterior calcaneus. No pes planus. No calci fication in the plantar fascia. IMPRESSION: Findings at the level of the phalanges of the toes as described individually above. Correlation with clinical findings recommended. DATA REPOSITORY: RADIATION DOSE DELIVERED:
== END ==
PROVIDERS: PCP Physician Assistant Medical; Visit Provider Podiatrist
DX: M79.671 Pain in right foot (principal); M79.672 Pain in left foot; R93.6 Abnormal findings on diagnostic imaging of limbs; M77.31 Calcaneal spur, right foot
CPT/HCPCS: 73630

== ENCOUNTER → 2023-09-23 09:21 | Outpatient (BNVA) | payer OTHER, SELFPAY | PROVIDERS: PCP Physician Assistant Medical; Referring Provider Physician Assistant Medical; Visit Provider Podiatrist | DX: M20.31 Hallux varus (acquired), right foot (principal); M20.32 Hallux varus (acquired), left foot; M20.22 Hallux rigidus, left foot; L60.0 Ingrowing nail; M79.671 Pain in right foot; M79.672 Pain in left foot | CPT/HCPCS: 99214 ==

== ENCOUNTER 2023-10-10 00:23 | Outpatient (CLI) | payer OTHER, SELFPAY ==
--- NOTE | 2023-10-10 | DI.RAD_ITS ---
Exam(s) XR HIP RT COMPLETE AP PELVIS EXAM: XR HIP RT COMPLETE AP PELVIS CLINICAL HISTORY: PAIN IN R HIP JOINT, M5.551. TECHNIQUE: 2D digital imaging was performed. Two views COMPARISON: MR MR PELVIS WO from 01/15/2023 FINDINGS: BONES: No acute fracture is present. No bony destructive lesion is seen. Enthesophytes at the iliac wings and greater trochanters. JOINTS: No dislocation present. The hip joint spaces are maintained. There is mild bilateral aceta bular spurring. There are minimal degenerative changes at the SI joints. The pubic symphysis at is unremarkable. SOFT TISSUE: Pessary IMPRESSION: No acute abnormality. DATA REPOSITORY: RADIATION DOSE DELIVERED:
== END 2023-10-10 00:43 ==
LOC: DI 00:23
PROVIDERS: PCP Physician Assistant Medical; Visit Provider Physician Assistant Medical
DX: M25.551 Pain in right hip (principal)
CPT/HCPCS: 73502

== ENCOUNTER → 2023-12-29 14:18 | Outpatient (BNVA) | payer OTHER, SELFPAY | PROVIDERS: PCP Physician Assistant Medical; Referring Provider Physician Assistant Medical | DX: M70.61 Trochanteric bursitis, right hip (principal) | CPT/HCPCS: 20610; J1010 ==

== ENCOUNTER 2024-01-28 11:51 | Outpatient (REF) | payer OTHER, SELFPAY | END 2024-01-28 11:52 | disposition home or self-care (01) | LOC: NCHCN 11:51 | PROVIDERS: PCP Physician Assistant Medical; Visit Provider Nurse Practitioner Family | DX: L29.3 Anogenital pruritus, unspecified (principal) | CPT/HCPCS: 87480; 87510; 87660 ==

== ENCOUNTER 2024-02-16 16:17 | Emergency (ER) | payer OTHER, SELFPAY ==
[2024-02-16] VITALS (59 sets, daily range): BP systolic 134–163; BP diastolic 59–82; PULSE 62–70; RESP 11–25; TEMP 36.4; O2SAT 92–100
--- NOTE | 2024-02-16 16:57 | W.ED.GENAD ---
Discharge Plan Disposition Patient Disposition: Home Condition: Stable Discharge Details Clinical Impression: Hypokalemia, Gastroenteritis, Hypomagnesemia Primary Care Provider: Rabia Jorge ED Provider: Victor Manuel Gilmore Home Meds and New Rx's Prescriptions: New potassium bicarb-citric acid 20 mEq tablet, effervescent 20 meq PO DAILY 7 Days Qty: 7 0RF azithromycin 500 mg tablet See Rx Instructions .ROUTE .COMPLEX Qty: 2 0RF Rx Instructions: For 500 mg dose pack: take 500 mg once daily for 2 days Continued metoprolol tartrate 25 mg tablet 25 mg PO HS trazodone 100 mg tablet 50 mg PO HS cholecalciferol (vitamin D3) [Vitamin D3] 1,000 UNIT capsule 1,000 unit PO DAILY ondansetron HCl 8 mg tablet 8 mg PO PRN PRN Patient Comments: TAKE 1 TABLET BY MOUTH THREE TIMES DAILY NEEDED clobetasol 0.05 % ointment 0.05 applic TOPICAL PRN PRN Patient Comments: Apply 1 a small amount to affected area twice a day as needed For vaginal itching ondansetron 4 mg tablet,disintegrating 4 mg PO Q6H PRN (Reason: nausea or vomiting) Qty: 5 0RF omeprazole 20 MG capsule,delayed release(DR/EC) 20 mg PO DAILY 0RF meclizine [Antivert] 25 MG tablet 25 mg PO TID PRN PRN (Reason: Vertigo) Qty: 20 0RF Discharge Instructions Instructions: Hypokalemia, Azithromycin (Systemic), High Potassium Diet, Potassium Bicarbonate and Potassium Citrate, Diarrhea, Adult ED, Hypomagnesemia Additional Instructions: You were seen in the emergency department for your 10-day GI illness likely from food poisoning. You had some mild dehydration on your laboratory workup including low potassium and low magnesium, we repleted these here in the emergency department you need to continue potassium supplements outpatient, this was sent to [facility] in [place]. Please take ceac-qic-nlkeoud Imodium A-D. Please take Tylenol and ibuprofen for any discomfort, you need to drink extra fluids when you are having liquid diarrhea not the opposite- oral intake does not increase liquidity of stool. Liquid diarrhea means you need to aggressively replace lost fluids. There was possible evidence of a urinary tract infection on your work-up, I have sent urine cultures, please follow with results on your portal- if your culture is positive you may need antibiotics- this may have been contamination during urine collection. Please return to the ED for further intractable nausea/vomiting, fever, severe abdominal pain, inability to tolerate PO intake. Referrals: Rabia Jorge PA [Primary Care Provider] - HPI General Date/Time Provider Initiated Documentation: 02/16/24 16:50. HPI Narrative: 73 year-old female presents to ED today by POV/ambulating with a chief complaint of dehydration, states she has had 10 days of GI illness after eating at a restaurant, she has a close family contacts and no one has gotten this illness from her, she states that early on in the course was primarily nausea and vomiting and now has primarily liquid diarrhea with 1 episode of black diarrhea yesterday completely liquid. Quality described as just feels like she is losing all of her water, she has been drinking less water because she equates this to with increased liquid diarrhea, no radiation to fever, chest pain, shortness of breath, patient is able to eat food but does get some mild nausea, denies profound weakness or near syncope. Severity is described as moderate. Palliating factors include attempted 1 dose of Imodium but did not continue even though it was effective in reducing her diarrhea. Provoking factors include nothing specific. Patient not anticoagulated. Related Data Home Medications ?Medication ?Instructions ?Recorded ?Confirmed cholecalciferol (vitamin D3) 25 1,000 unit PO DAILY 08/22/15 02/16/24 mcg (1,000 unit) capsule (Vitamin D3) omeprazole 20 mg capsule,delayed 20 mg PO DAILY 06/03/17 02/16/24 release meclizine 25 mg tablet (Antivert) 25 mg PO TID PRN PRN Vertigo #20 08/30/17 02/16/24 tabs metoprolol tartrate 25 mg tablet 25 mg PO HS 07/02/22 02/16/24 clobetasol 0.05 % topical ointment 0.05 applic topical PRN PRN 08/18/22 02/16/24 ondansetron HCl 8 mg tablet 8 mg PO PRN PRN 08/18/22 02/16/24 ondansetron 4 mg disintegrating 4 mg PO Q6H PRN nausea or vomiting 10/03/22 02/16/24 tablet #5 tabs trazodone 100 mg tablet 50 mg PO HS 08/26/23 02/16/24 azithromycin 500 mg tablet See Rx Instructions PO .COMPLEX #2 02/16/24 tabs potassium bicarbonate-citric acid 20 meq PO DAILY hypokalemia 7 days 02/16/24 20 mEq effervescent tablet #7 tabs Previous Rx's ?Medication ?Instructions ?Recorded omeprazole 20 mg capsule,delayed 20 mg PO DAILY 06/03/17 release meclizine 25 mg tablet (Antivert) 25 mg PO TID PRN PRN Vertigo #20 08/30/17 tabs ondansetron 4 mg disintegrating 4 mg PO Q6H PRN nausea or vomiting 10/03/22 tablet #5 tabs azithromycin 500 mg tablet See Rx Instructions PO .COMPLEX #2 02/16/24 tabs potassium bicarbonate-citric acid 20 meq PO DAILY hypokalemia 7 days 02/16/24 20 mEq effervescent tablet #7 tabs Allergies Allergy/AdvReac Type Severity Reaction Status Date / Time metronidazole (From Flagyl) Allergy Unknown Skin Rash Verified 02/16/24 16:34 Sulfa (Sulfonamide Allergy Unknown Skin Rash Verified 02/16/24 16:34 Antibiotics) adhesive tape AdvReac Intermediate Skin Rash Verified 02/16/24 16:34 hydrocodone bitartrate (From AdvReac Intermediate Nausea, Verified 02/16/24 16:34 [place]) Dizziness/Lightheaded nickel AdvReac Unknown Itching Verified 02/16/24 16:34 Penicillins AdvReac Unknown Skin Rash Verified 02/16/24 16:34 gluten AdvReac Diarrhea Verified 02/16/24 16:34 lactose AdvReac Diarrhea Verified 02/16/24 16:34 General Stated Complaint: Abd Prob GROVER: 3 Review of Systems All systems reviewed & are unremarkable except as noted in HPI and below Exam Narrative Exam Narrative: GENERAL APPEARANCE: Well-nourished, non-toxic, awake and alert, atraumatic, no acute distress. SKIN: Warm, pink, dry, intact, without rashes/lesions/ulcerations. HEAD: Normocephalic, atraumatic, normal hair distribution for gender/age. EYES: Normal conjunctiva, no exudates on lids/lashes. ENT: Nares patent, no circumoral cyanosis, no facial swelling NECK: Supple, trachea midline, painless cervical ROM. LUNGS/CHEST: Lungs CTA bilaterally, non-labored respirations, normal A/P diameter, symmetrical expansion, no chest wall deformity HEART (CV/PV): Regular rate and rhythm without murmur, no peripheral edema, no JVD. ABDOMEN: Soft, non-distended, no guarding. MSK: Normal ROM, no swelling/deformity to bilateral UEs or LEs, moving all extremities without weakness, no cyanosis, spine midline without tenderness, normal curvature. NEURO: Mental Status AAOx4 - alert to person, place, time, events No facial droop, no forehead involvement. Motor: No focal weakness - strength 5/5 in bilateral UEs and LEs, proximal and distal, symmetric. Sensory: sensation intact to light touch globally. Gait normal: patient ambulated without ataxia into ED room. PSYCH: euthymic, cooperative, pleasant, appropriate speech Course Vital Signs Vital signs: Vital Signs Temperature 36.4 C 02/16/24 16:29 Pulse 65 02/16/24 16:29 Respiratory Rate 15 02/16/24 16:29 Blood Pressure 134/82 02/16/24 16:29 Pulse Oximetry 98 02/16/24 16:29 Temperature 36.4 C 02/16/24 16:32 Pulse 65 02/16/24 16:32 Respiratory Rate 15 02/16/24 16:32 Blood Pressure 134/82 02/16/24 16:32 Blood Pressure Position Sitting 02/16/24 16:32 Pulse Oximetry 98 02/16/24 16:32 Oxygen Delivery Method Room Air 02/16/24 16:32 Oxygen Flow Rate 0 02/16/24 16:32 Medical Decision Making This dictation utilizes [id number] dictation software and may contain unedited grammatical errors. 73 year-old female presents to ED today by POV/ambulating with a chief complaint of dehydration, states she has had 10 days of GI illness after eating at a restaurant, she has a close family contacts and no one has gotten this illness from her, she states that early on in the course was primarily nausea and vomiting and now has primarily liquid diarrhea with 1 episode of black diarrhea yesterday completely liquid. Quality described as just feels like she is losing all of her water, she has been drinking less water because she equates this to with increased liquid diarrhea, no radiation to fever, chest pain, shortness of breath, patient is able to eat food but does get some mild nausea, denies profound weakness or near syncope. Severity is described as moderate. Palliating factors include attempted 1 dose of Imodium but did not continue even though it was effective in reducing her diarrhea. Provoking factors include nothing specific. Patients' medical history: Diverticulitis, GERD, hypertension, diastolic dysfunction. Family and social history: No sick contacts, no recent travel, eats normal diet. Pertinent exam findings / vital signs include benign abdomen, no CVA tenderness percussion, lungs CTA, nontoxic vital signs, afebrile. Differential / pathologies of concern include gastroenteritis, electrolyte abnormality, diverticulitis unlikely. Diagnostic studies of: -CBC, CMP, magnesium, lipase. -CBC is benign with no leukocytosis or anemia -CMP shows hypokalemia of 2.8, mild increase in anion gap to 16.5 -Mildly low magnesium of 1.6 -Lipase is mildly elevated at 107 Interventions of: -500 mL IVF NS, 20 mEq IV potassium, 40 mEq p.o. potassium, 2 g IV magnesium, Rx for potassium supplements for 1 week with recheck by PCP. ED Course/Assessment/Plan: 73-year-old female presents with a 10-day GI illness that started with mostly focal nausea vomiting bowels moved to mostly diarrhea having mild nausea with p.o. intake, she equates drinking water with increased liquid diarrhea, I counseled her that she needs aggressive replacement when she is having liquid diarrhea, counseled her on regular use of Imodium A-D, she was shown to have a hypokalemia to 2.8 as well as low magnesium to 1.6 both were repleted IV as well as p.o. potassium, started on supplements outpatient, she has a mild increase in lipase without LFT bump, CBC is benign with no leukocytosis, the patient is amenable to discharge, I counseled her on stool studies being offered but she did not provide a sample but I did provide her with 3 days of azithromycin due to her prolonged GI illness onset for traveler's diarrhea or foodborne illness. I stressed strict return criteria for intractable nausea or vomiting, palpitations, weakness, syncope, shortness of breath or any other emergent concerns. Findings not consistent with severe dehydration, toxic illness, sepsis, GI bleeding. Disposition of Hypokalemia, Hypomagnesemia, Gastroenteritis. Patient verbalized understanding of the plan and return to ED criteria and engaged in shared decision making. Medical Records Medical records reviewed: Yes I reviewed the patient's medical records. Lab Data Lab results reviewed: Yes I reviewed the patient's lab results. Labs: Laboratory Tests Range/Units 02/16/24 17:39 WBC (4.4-10.8) 10^3/uL 9.40 RBC (3.93-5.22) 10^6/uL 4.86 Hgb (11.2-15.7) g/dL 14.5 Hct (36.0-46.0) % 42.6 MCV (80-95) fL 88 MCH (27.0-33.0) pg 29.8 MCHC (32.0-36.0) % 34.0 RDW (11.7-14.6) % 12.8 Plt Count (130-400) 10^3/uL 324 MPV (8.0-11.0) fL 10.3 Immature Gran % % 0.3 Neutrophils % % 59.8 Lymphocytes % % 31.9 Monocytes % % 5.5 Eosinophils % % 1.8 Basophils % % 0.7 Nucleated RBC % (0.0-0.3) % 0.0 Absolute Neutrophils (1.2-6.7) 10^3/uL 5.61 Absolute Lymphocytes (1.2-3.4) 10^3/uL 3.00 Absolute Monocytes (0.1-0.8) 10^3/uL 0.52 Absolute Eosinophils (0.0-0.7) 10^3/uL 0.17 Absolute Basophils (0.0-0.2) 10^3/uL 0.07 Sodium (136-145) mmol/L 143 Potassium (3.5-5.1) mmol/L 2.8 L* Chloride (98-107) mmol/L 103 Carbon Dioxide (21.0-32.0) mmol/L 23.5 Anion Gap (3-11) mmol/L 16.5 H BUN (7-18) mg/dL 8 Creatinine (0.55-1.02) mg/dL 0.9 Est GFR (CKD-EPI 2020) (mL/min/1.73m2) 68.35 Glucose (74-106) mg/dL 86 Calcium (8.5-10.1) mg/dL 9.4 Magnesium (1.8-2.4) mg/dL 1.6 L Total Bilirubin (0.2-1.0) mg/dL 0.84 AST (15-37) U/L 28 ALT (14-59) U/L 33 Alkaline Phosphatase (46-116) U/L 79 Total Protein (6.4-8.2) g/dL 7.9 Albumin (3.4-5.0) g/dL 3.9 Lipase (<78) U/L 107 H Quality:SDOH Health Related Social Needs: No Data to Display PFSH All Active Problems (Updated 02/16/24 @ 20:21 by GOLD Morales) Hypomagnesemia (Acute) Gastroenteritis (Acute) Hypokalemia (Acute) Trochanteric bursitis, right hip (Acute) DEPO MEDROL 12/29/23 Hallux rigidus, left foot (Acute) Acquired hallux varus of both feet (Acute) Pain in right foot (Acute) Pain in left foot (Acute) Left rotator cuff tear (Acute) Diverticulitis of sigmoid colon (Acute) Nausea alone (Acute) Discharge planning issues (Acute) Hepatic cyst (Acute) Abdominal pain (Acute) Medical History Obesity Vitamin D deficiency Diverticulitis large intestine Hypertension GERD (gastroesophageal reflux disease) Liver cyst Psoriasis Diastolic dysfunction Mitral regurgitation Depression Invasive ductal carcinoma of right breast in female Overactive bladder Obstructive sleep apnea Insomnia Surgical History ductal excision Colonoscopy - MAC (08/18/17) Breast, Mastectomy Bilateral (09/18/15) Breast, Lumpectomy Social History Smoking/Tobacco Use Status: Never Smoking risk assessment performed?: Yes Alcohol Intake: never Drug use: Never Substance use type: does not use Housing: house Current gender identity: female Do you feel safe at home: Yes Do you feel safe in your relationship?: Yes
[2024-02-16] MEDS: Ondansetron O.D.T. 4 MG TABEF PO (17:23)
[2024-02-16] MEDS: Electrolyte SOLUTION,ORAL 1000 ML BTL PO (17:23)
[2024-02-16 17:43] LABS: Abs Immature Grans 0.03 10^3/uL (0.0-0.06); Absolute Basophil Count 0.07 10^3/uL (0.0-0.2); Absolute Eosinophil Count 0.17 10^3/uL (0.0-0.7); Absolute Monocyte Count 0.52 10^3/uL (0.1-0.8); Absolute Neutrophil Count 5.61 10^3/uL (1.2-6.7); Basophils % 0.7 %; Eosinophils % 1.8 %; HCT 42.6 % (36.0-46.0); HGB 14.5 g/dL (11.2-15.7); Immature Grans % 0.3 %; Lymphocytes % 31.9 %; MCH 29.8 pg (27.0-33.0); MCV 88 fL (80-95); MPV 10.3 fL (8.0-11.0); Monocytes % 5.5 %; Neutrophils % 59.8 %; Platelet Count 324 10^3/uL (130-400); RBC 4.86 10^6/uL (3.93-5.22); RDW 12.8 % (11.7-14.6); RDW-SD 40.7 fL
[2024-02-16 18:01] LABS: Lipase 107 U/L (<78)
[2024-02-16 18:05] LABS: ALT 33 U/L (14-59); AST 28 U/L (15-37); Albumin 3.9 g/dL (3.4-5.0); Alkaline Phosphatase 79 U/L (46-116); Anion Gap 16.5 mmol/L (3-11); BUN 8 mg/dL (7-18); Bilirubin, Total 0.84 mg/dL (0.2-1.0); CO2 23.5 mmol/L (21.0-32.0); CREATININE 0.9 mg/dL (0.55-1.02); Calcium 9.4 mg/dL (8.5-10.1); Chloride 103 mmol/L (98-107); Estimated GFR 68.35 (mL/min/1.73m2); Glucose 86 mg/dL (74-106); Magnesium 1.6 mg/dL (1.8-2.4); Potassium 2.8 mmol/L (3.5-5.1); Sodium 143 mmol/L (136-145); Total Protein 7.9 g/dL (6.4-8.2)
[2024-02-16] MEDS: MAGNESIUM SULFATE 2 GM/50 ML BAG IV_INF (18:48)
[2024-02-16] MEDS: Potassium Chloride 20 MEQ TABCR 40 MEQ PO (18:54)
[2024-02-16] MEDS: POTASSIUM CHLORIDE 20 MEQ/100 ML BAG 50 MEQ IV_INF (19:55)
[2024-02-16 20:25] LABS: Bilirubin Negative (Negative); Blood Trace-lysed (Negative); Clarity Clear (Clear); Glucose Negative (Negative); Ketones 40 mg/dL (Negative); Leukocyte Esterase Large (Negative); Nitrite Negative (Negative); pH 7.5 (5-8)
[2024-02-16 20:34] LABS: Bacteria Few HPF (Negative); C & S Indicated? No/Sq. Contamination; Casts Negative LPF (Negative); Crystals Negative HPF (Negative); Epithelial Cells Moderate HPF (Negative); Mucus Negative (Negative); Other Cells Rare Transitional (Negative); RBC 0-2 HPF (0-2); WBC 20-50 HPF (0-5)
[2024-02-16] MEDS: Azithromycin 250 MG TAB 500 MG PO (21:29)
== END 2024-02-16 21:50 | disposition home or self-care (01) ==
PROVIDERS: Emergency Provider Physician Assistant; PCP Physician Assistant Medical
DX: K52.9 Noninfective gastroenteritis and colitis, unspecified (principal); E83.42 Hypomagnesemia; R11.0 Nausea; E87.6 Hypokalemia; R10.30 Lower abdominal pain, unspecified
CPT/HCPCS: 80053; 83690; 96365; 99284; 81003; 81015; 83735; 85025; 87086; J3475; J3480

== ENCOUNTER 2024-02-17 01:30 | Outpatient (CLI) | payer OTHER, SELFPAY ==
--- NOTE | 2024-02-17 07:45 | DI.MRI_ITS ---
Exam(s) MR LOWER JOINT RT WO EXAM: MR LOWER JOINT RT WO CLINICAL HISTORY: RIGHT HIP PAIN,TROCHANTERIC BURSITIS RT HIP,M70.61 TECHNIQUE: Multiplanar multisequence MRI of Pelvis was performed COMPARISON: CT CT ABDOMEN PELVIS W from 06/26/2023 CR XR HIP RT COMPLETE AP PELVIS from 10/10/2023 FINDINGS: Bones: There is no fracture or contusion pattern. No bone marrow edema is seen. Joints: No significant joint effusion or gross labral defect is present. The SI joints and symphysis pubis are well maintained. Musculotendinous structures: Edema in the distal gluteus medius and minimus muscles and tendons. Par tial tear is of both tendons. Fluid seen adjacent to greater trochanter. Intrapelvic structures: Severe diverticulosis of the sigmoid. Small uterine fibroid. Cystic areas w ithin the uterine body may be within the endometrium. Pessary. IMPRESSION: Severe partial tears of the distal gluteus medius and minimus muscles and tendons. Fluid around the greater trochanter could indicate trochanteric bursitis. High signal areas within the uterine body may represent endometrial thickening or polyps. Pelvic ult rasound are recommended for further evaluation. Unexpected findings DATA REPOSITORY:
== END 2024-02-17 01:50 ==
LOC: DI 01:30
PROVIDERS: PCP Physician Assistant Medical; Visit Provider Student in an Organized Health Care Education/Training Program
DX: S76.011A Strain of muscle, fascia and tendon of right hip, initial encounter (principal); X58.XXXA Exposure to other specified factors, initial encounter
CPT/HCPCS: 73721

== ENCOUNTER 2024-02-25 17:15 | Outpatient (REF) | payer MEDICARE, SELFPAY ==
[2024-02-25 19:56] LABS: Anion Gap 7.4 mmol/L (3-11); BUN 13 mg/dL (7-18); CO2 28.6 mmol/L (21.0-32.0); Calcium 9.2 mg/dL (8.5-10.1); Chloride 103 mmol/L (98-107); Estimated GFR 60.23 (mL/min/1.73m2); Glucose 123 mg/dL (74-106); Magnesium 1.8 mg/dL (1.8-2.4); Potassium 4.8 mmol/L (3.5-5.1); Sodium 139 mmol/L (136-145)
== END 2024-02-25 17:16 | disposition home or self-care (01) ==
LOC: NCHCN 17:15
PROVIDERS: PCP Physician Assistant Medical; Visit Provider Physician Assistant Medical
DX: E83.42 Hypomagnesemia (principal); E87.6 Hypokalemia
CPT/HCPCS: 80048; 83735

== ENCOUNTER → 2024-03-01 12:48 | Outpatient (BNVA) | payer MEDICARE, SELFPAY | PROVIDERS: PCP Physician Assistant Medical; Referring Provider Physician Assistant Medical | DX: M70.61 Trochanteric bursitis, right hip (principal); M76.891 Other specified enthesopathies of right lower limb, excluding foot | CPT/HCPCS: 99213 ==

== ENCOUNTER → 2024-03-10 13:11 | Outpatient (BNVA) | payer MEDICARE, SELFPAY | PROVIDERS: PCP Physician Assistant Medical; Referring Provider Physician Assistant Medical; Visit Provider Student in an Organized Health Care Education/Training Program | DX: M70.61 Trochanteric bursitis, right hip (principal); S76.011A Strain of muscle, fascia and tendon of right hip, initial encounter; X58.XXXA Exposure to other specified factors, initial encounter | CPT/HCPCS: 99214 ==

== ENCOUNTER 2024-03-22 15:44 | Outpatient (REF) | payer MEDICARE, SELFPAY ==
[2024-03-22 19:18] LABS: Hemoglobin A1C 5.3 % (<5.7)
[2024-03-23 14:39] LABS: Vitamin D 25 Total 52.3 ng/mL (30-100)
== END 2024-03-22 15:45 | disposition home or self-care (01) ==
LOC: NCHCN 15:44
PROVIDERS: PCP Physician Assistant Medical; Visit Provider Physician Assistant Medical
DX: R53.83 Other fatigue (principal)
CPT/HCPCS: 82306; 83036

== ENCOUNTER 2024-04-27 12:09 | Outpatient (REF) | payer MEDICARE, SELFPAY ==
[2024-04-27 15:41] LABS: Abs Immature Grans 0.05 10^3/uL (0.0-0.06); Absolute Basophil Count 0.06 10^3/uL (0.0-0.2); Absolute Eosinophil Count 0.15 10^3/uL (0.0-0.7); Absolute Lymphocyte Count 2.37 10^3/uL (1.2-3.4); Absolute Monocyte Count 0.59 10^3/uL (0.1-0.8); Absolute Neutrophil Count 6.39 10^3/uL (1.2-6.7); Basophils % 0.6 %; Eosinophils % 1.6 %; HCT 43.9 % (36.0-46.0); HGB 14.8 g/dL (11.2-15.7); Immature Grans % 0.5 %; Lymphocytes % 24.7 %; MCH 30.5 pg (27.0-33.0); MCHC 33.7 % (32.0-36.0); MCV 91 fL (80-95); MPV 11.2 fL (8.0-11.0); Monocytes % 6.1 %; Neutrophils % 66.5 %; Platelet Count 317 10^3/uL (130-400); RBC 4.85 10^6/uL (3.93-5.22); RDW 12.7 % (11.7-14.6); RDW-SD 41.7 fL; WBC 9.61 10^3/uL (4.4-10.8)
[2024-04-27 15:55] LABS: Anion Gap 10.7 mmol/L (3-11); BUN 16 mg/dL (7-18); CO2 25.3 mmol/L (21.0-32.0); Calcium 9.6 mg/dL (8.5-10.1); Chloride 106 mmol/L (98-107); Estimated GFR 60.23 (mL/min/1.73m2); Glucose 92 mg/dL (74-106); Potassium 4.8 mmol/L (3.5-5.1); Sodium 142 mmol/L (136-145)
== END 2024-04-27 12:10 | disposition home or self-care (01) ==
LOC: NCHCN 12:09
PROVIDERS: PCP Physician Assistant Medical; Visit Provider Physician Assistant Medical
DX: I10 Essential (primary) hypertension (principal)
CPT/HCPCS: 80048; 83735; 85025

== ENCOUNTER 2024-05-04 00:48 | Outpatient (CLI) | payer MEDICARE, SELFPAY ==
--- NOTE | 2024-05-04 14:02 | DI.RAD_ITS ---
Exam(s) XR FOOT LT COMPLETE EXAM: XR FOOT LT COMPLETE CLINICAL HISTORY: pain of left foot,M79.672. TECHNIQUE: 2D digital imaging was performed of the left foot. Three images were obtained. AP, obli que and lateral views were obtained. COMPARISON: CR XR FOOT RT COMPLETE from 09/12/2023 FINDINGS: BONES: No acute fracture is present. No bony destructive lesion is seen. There is an enthesophyte at the posterior calcaneus. There is a moderate-sized plantar calcaneal spur. JOINTS: No dislocation present. There are mild degenerative changes seen in the foot. SOFT TISSUE: Normal. IMPRESSION: Mild degenerative changes of the foot and calcaneal spurs. DATA REPOSITORY: RADIATION DOSE DELIVERED:
== END 2024-05-04 01:08 ==
LOC: DI 00:49
PROVIDERS: PCP Physician Assistant Medical; Visit Provider Podiatrist
DX: M79.672 Pain in left foot (principal)
CPT/HCPCS: 73630

== ENCOUNTER 2024-05-14 00:46 | Outpatient (CLI) | payer MEDICARE, SELFPAY ==
--- NOTE | 2024-05-14 | DI.US_ITS ---
Exam(s) US PELVIS TRANSVAGINAL EXAM: US PELVIS TRANSVAGINAL CLINICAL HISTORY: Abnl findings on DI of other specified body structures, R93.89 TECHNIQUE: Transabdominal and transvaginal imaging was performed using standard protocol. COMPARISON: CT ABD PELVIS WITH CONTRAST from 07/08/[address] CHEST PE ABD PELVIS W from 08/07/2020 MR MR PELVIS WO from 01/15/[address] ABDOMEN PELVIS W from 06/26/2023 FINDINGS: UTERUS: Anteverted. 6.7 x 2.7 x 4.0 cm Endometrium: 13-17 mm, thickened and heterogeneous. Myometrium: 17 millimeter of hyperechoic rounded circumscribed lesion of the anterior lower uterine s egment, consistent with a lipoleiomyoma. It was present on prior CT scans. Cervix: Unremarkable. OVARIES: Right: Cyst or mass: None. Left: Cyst or mass: None. DOPPLER: Color: Symmetric and uniform flow to both ovaries. No hyperemia. CUL-DE-SAC: Free fluid: None. IMPRESSION: 1. Abnormally thickened heterogeneous endometrium could represent polyps, hyperplasia or malignancy. Biopsy recommended. 2. Stable small lipoleiomyoma. 3. Unremarkable bilateral ovaries. DATA REPOSITORY:
== END 2024-05-14 01:06 ==
LOC: DI 00:46
PROVIDERS: PCP Physician Assistant Medical; Visit Provider Physician Assistant Medical
DX: R93.89 Abnormal findings on diagnostic imaging of other specified body structures (principal)
CPT/HCPCS: 76830; 76856

== ENCOUNTER → 2024-05-18 12:56 | Outpatient (BNVA) | payer MEDICARE, SELFPAY | PROVIDERS: PCP Physician Assistant Medical; Referring Provider Physician Assistant Medical; Visit Provider Student in an Organized Health Care Education/Training Program | DX: M70.61 Trochanteric bursitis, right hip (principal); M70.62 Trochanteric bursitis, left hip; M76.31 Iliotibial band syndrome, right leg; M76.32 Iliotibial band syndrome, left leg | CPT/HCPCS: 99214 ==

== ENCOUNTER 2024-06-01 15:36 | Outpatient (REF) | payer MEDICARE, SELFPAY | END 2024-06-01 15:37 | disposition home or self-care (01) | LOC: LBN 15:36 | PROVIDERS: PCP Physician Assistant Medical; Visit Provider Obstetrics & Gynecology | DX: Z11.51 Encounter for screening for human papillomavirus (HPV) (principal); Z01.419 Encounter for gynecological examination (general) (routine) without abnormal findings; N84.0 Polyp of corpus uteri | CPT/HCPCS: 88142; 88305; 87624 ==

== ENCOUNTER 2024-07-13 16:16 | Emergency (ER) | payer MEDICARE, SELFPAY ==
[2024-07-13] VITALS (22 sets, daily range): BP systolic 163–187; BP diastolic 62–118; PULSE 70–80; RESP 12–20; TEMP 37.2; O2SAT 92–99
--- NOTE | 2024-07-13 16:15 | RT.EKG_ITS ---
APPROVED REPORT Exam: Resting ECG Reason for Exam: chest tightness Patient Location: E HR:80 bpm ECG Measurements Heart Rate 80 AXIS MT 182 P 22 QRSd 92 QRS -19 QT 383 T 36 QTc 442 Conclusion Sinus rhythm. 80 normal axis no stemi
[2024-07-13 17:06] LABS: Abs Immature Grans 0.05 10^3/uL (0.0-0.06); Absolute Basophil Count 0.05 10^3/uL (0.0-0.2); Absolute Eosinophil Count 0.12 10^3/uL (0.0-0.7); Absolute Lymphocyte Count 2.71 10^3/uL (1.2-3.4); Absolute Monocyte Count 0.63 10^3/uL (0.1-0.8); Absolute Neutrophil Count 6.19 10^3/uL (1.2-6.7); Basophils % 0.5 %; Eosinophils % 1.2 %; HCT 42.7 % (36.0-46.0); HGB 14.4 g/dL (11.2-15.7); Immature Grans % 0.5 %; Lymphocytes % 27.8 %; MCH 29.8 pg (27.0-33.0); MCHC 33.7 % (32.0-36.0); MCV 88 fL (80-95); MPV 10.7 fL (8.0-11.0); Monocytes % 6.5 %; Neutrophils % 63.5 %; Platelet Count 345 10^3/uL (130-400); RBC 4.84 10^6/uL (3.93-5.22); RDW 12.9 % (11.7-14.6); RDW-SD 41.8 fL; WBC 9.75 10^3/uL (4.4-10.8)
[2024-07-13 17:27] LABS: ALT 22 U/L (14-59); AST 19 U/L (15-37); Albumin 3.9 g/dL (3.4-5.0); Alkaline Phosphatase 101 U/L (46-116); Anion Gap 8.5 mmol/L (3-11); BUN 15 mg/dL (7-18); Bilirubin, Total 0.6 mg/dL (0.2-1.0); CO2 26.5 mmol/L (21.0-32.0); CREATININE 0.9 mg/dL (0.55-1.02); Calcium 9.5 mg/dL (8.5-10.1); Chloride 101 mmol/L (98-107); Estimated GFR 68.35 (mL/min/1.73m2); Glucose 105 mg/dL (74-106); Magnesium 1.6 mg/dL (1.8-2.4); NT-proBNP 133 pg/mL (<300); Potassium 3.3 mmol/L (3.5-5.1); Sodium 136 mmol/L (136-145); Total Protein 8.1 g/dL (6.4-8.2); Troponin I 5 ng/L (<or=51)
[2024-07-13] MEDS: amLODIPine 5 MG TAB PO (17:38)
[2024-07-13 17:57] LABS: Troponin I 6 ng/L (<or=51)
[2024-07-13] MEDS: Potassium Chloride Liquid 20 MEQ PKT 40 MEQ PO (18:16)
[2024-07-13] MEDS: Magnesium Oxide 400 MG TAB 800 MG PO (18:16)
--- NOTE | 2024-07-13 19:31 | ED.GENADUL_ITS ---
Discharge Plan Disposition Patient Disposition: Home Discharge Details Clinical Impression: Hypertension, Hypokalemia, Hypomagnesemia, Chest pain Primary Care Provider: Rabia Jorge ED Provider: Jose Carlos Yanez Home Meds and New Rx's Prescriptions: No Action metoprolol tartrate 25 mg tablet 25 mg PO HS trazodone 100 mg tablet 50 mg PO HS modafinil 100 mg tablet 100 mg PO QAM dicyclomine 10 mg capsule 10 mg PO QID PRN diazepam 5 mg tablet 5 mg PO QHS PRN cholecalciferol (vitamin D3) [Vitamin D3] 1,000 UNIT capsule 1,000 unit PO DAILY ondansetron HCl 8 mg tablet 8 mg PO PRN PRN Patient Comments: TAKE 1 TABLET BY MOUTH THREE TIMES DAILY NEEDED clobetasol 0.05 % ointment 0.05 applic TOPICAL PRN PRN Patient Comments: Apply 1 a small amount to affected area twice a day as needed For vaginal itching omeprazole 20 MG capsule,delayed release(DR/EC) 20 mg PO DAILY 0RF meclizine [Antivert] 25 MG tablet 25 mg PO TID PRN PRN (Reason: Vertigo) Qty: 20 0RF Discharge Instructions Instructions: Chest Pain, Adult ED Additional Instructions: YOUR EKG AND BLOOD WORK DOES NOT INDICATE THAT YOUR ONGOING CHEST PAIN IS DUE TO CARDIAC CAUSES. YOUR POTASSIUM AND MAGNESIUM LEVELS ARE SLIGHTLY LOW AND YOU SHOULD INCREASE YOUR FOOD INTAKE of these nutrients. Your blood pressure is on the high side and you need to take your blood pressure daily and keep a log for your follow-up appointment next week with your primary care provider. You may need some adjustments in your medication for your blood pressure. Your ongoing leg weakness and increased stability should be addressed by your primary care doctor and you should continue physical therapy for this. HPI General Date/Time Provider Initiated Documentation: 07/13/24 16:55 . Limitations to Documentation: no limitations . Information obtained by: patient . HPI Narrative: 73-year-old female with past medical history of diverticulosis, hypertension presents for evaluation of chest pain. She reports that tightening sensation in her anterior chest that has been constant for the last 4 days. She states that her sleeping pill irritates her chest and makes the pain worse. The pain does not change with any exertion, and does not cause her any shortness of breath or nausea. Being pain has been unchanged during this time. She reports that since January hospitalization she has been having increased debility and has been following by her primary care doctor, she has been going to physical therapy but does not feel like she has got any better pain level. She does report ongoing intermittent diarrhea that is nonbloody. Related Data Home Medications ?Medication ?Instructions ?Recorded ?Confirmed cholecalciferol (vitamin D3) 25 1,000 unit PO DAILY 08/22/15 07/13/24 mcg (1,000 unit) capsule (Vitamin D3) omeprazole 20 mg capsule,delayed 20 mg PO DAILY 06/03/17 07/13/24 release meclizine 25 mg tablet (Antivert) 25 mg PO TID PRN PRN Vertigo #20 08/30/17 07/13/24 tabs metoprolol tartrate 25 mg tablet 25 mg PO HS 07/02/22 07/13/24 clobetasol 0.05 % topical ointment 0.05 applic topical PRN PRN 08/18/22 07/13/24 ondansetron HCl 8 mg tablet 8 mg PO PRN PRN 08/18/22 07/13/24 trazodone 100 mg tablet 50 mg PO HS 08/26/23 07/13/24 diazepam 5 mg tablet 5 mg PO QHS PRN 07/06/24 07/13/24 dicyclomine 10 mg capsule 10 mg PO QID PRN 07/06/24 07/13/24 modafinil 100 mg tablet 100 mg PO QAM 07/06/24 07/13/24 Previous Rx's ?Medication ?Instructions ?Recorded omeprazole 20 mg capsule,delayed 20 mg PO DAILY 06/03/17 release meclizine 25 mg tablet (Antivert) 25 mg PO TID PRN PRN Vertigo #20 08/30/17 tabs Allergies Allergy/AdvReac Type Severity Reaction Status Date / Time amitriptyline Allergy Severe nervousness,weakness, Verified 07/13/24 16:25 suicidal ideation metronidazole (From Flagyl) Allergy Unknown Skin Rash Verified 07/13/24 16:25 Sulfa (Sulfonamide Allergy Unknown Skin Rash Verified 07/13/24 16:25 Antibiotics) fluoxetine AdvReac Severe nervousness,weakness, Verified 07/13/24 16:25 suicidal ideation adhesive tape AdvReac Intermediate Skin Rash Verified 07/13/24 16:25 diclofenac AdvReac Intermediate burning of Verified 07/13/24 16:25 skin hydrocodone bitartrate (From AdvReac Intermediate Nausea, Verified 07/13/24 16:25 [place]) Dizziness/Lightheaded nickel AdvReac Unknown Itching Verified 07/13/24 16:25 Penicillins AdvReac Unknown Skin Rash Verified 07/13/24 16:25 gluten AdvReac Diarrhea Verified 07/13/24 16:25 lactose AdvReac Diarrhea Verified 07/13/24 16:25 General Stated Complaint: Chest Pain GROVER: 3 Exam Narrative Exam Narrative: Review of Systems: All systems reviewed & are unremarkable except as noted in HPI and below Well-developed, no acute distress NCAT PERRL, normal conjunctiva RRR, no chest wall tenderness Unlabored respiratory effort, ctab Nondistended abdomen , SOFT NT Extremities w/o deformity, no cyanosis, no edema No rashes or lesions. no focal neurologic deficits, normal strength and sensation throughout Appropriate mood and affect Course Vital Signs Vital signs: Vital Signs Temperature 37.2 C 07/13/24 16:19 Pulse 80 07/13/24 16:19 Respiratory Rate 16 07/13/24 16:19 Blood Pressure 187/118 H 07/13/24 16:19 Pulse Oximetry 98 07/13/24 16:19 Temperature 37.2 C 07/13/24 16:19 Temperature Source Oral 07/13/24 16:19 Pulse 72 07/13/24 18:31 Pulse 74 07/13/24 18:31 Respiratory Rate 15 07/13/24 18:31 Respiratory Effort Normal, Non-Labored, Short of Breath 07/13/24 16:48 Respiratory Depth Normal 07/13/24 16:48 Respiratory Pattern Normal 07/13/24 16:48 Blood Pressure 164/63 H 07/13/24 18:31 Blood Pressure Mean 100 07/13/24 18:31 Pulse Oximetry 96 07/13/24 17:32 Pain Level 0 07/13/24 16:19 Lab/Test Results Lab/Test Results: Laboratory Tests Range/Units 07/13/24 07/13/24 07/13/24 16:35 17:32 19:56 WBC (4.4-10.8) 10^3/uL 9.75 RBC (3.93-5.22) 10^6/uL 4.84 Hgb (11.2-15.7) g/dL 14.4 Hct (36.0-46.0) % 42.7 MCV (80-95) fL 88 MCH (27.0-33.0) pg 29.8 MCHC (32.0-36.0) % 33.7 RDW (11.7-14.6) % 12.9 Plt Count (130-400) 10^3/uL 345 MPV (8.0-11.0) fL 10.7 Immature Gran % % 0.5 Neutrophils % % 63.5 Lymphocytes % % 27.8 Monocytes % % 6.5 Eosinophils % % 1.2 Basophils % % 0.5 Nucleated RBC % (0.0-0.3) % 0.0 Absolute Neutrophils (1.2-6.7) 10^3/uL 6.19 Absolute Lymphocytes (1.2-3.4) 10^3/uL 2.71 Absolute Monocytes (0.1-0.8) 10^3/uL 0.63 Absolute Eosinophils (0.0-0.7) 10^3/uL 0.12 Absolute Basophils (0.0-0.2) 10^3/uL 0.05 Sodium (136-145) mmol/L 136 Potassium (3.5-5.1) mmol/L 3.3 L Chloride (98-107) mmol/L 101 Carbon Dioxide (21.0-32.0) mmol/L 26.5 Anion Gap (3-11) mmol/L 8.5 BUN (7-18) mg/dL 15 Creatinine (0.55-1.02) mg/dL 0.9 Est GFR (CKD-EPI 2020) (mL/min/1.73m2) 68.35 Glucose (74-106) mg/dL 105 Calcium (8.5-10.1) mg/dL 9.5 Magnesium (1.8-2.4) mg/dL 1.6 L Total Bilirubin (0.2-1.0) mg/dL 0.6 AST (15-37) U/L 19 ALT (14-59) U/L 22 Alkaline Phosphatase (46-116) U/L 101 Troponin I (<or=51) ng/L 5 6 Cancelled NT-Pro-B Natriuret Pep (<300) pg/mL 133 Total Protein (6.4-8.2) g/dL 8.1 Albumin (3.4-5.0) g/dL 3.9 Medical Decision Making Emergent evaluation of chest pain. Low likelihood for ACS given that she has been having chest pain for 3 straight days. Her EKG was reviewed and independently interpreted, sinus 80 normal axis. No STEMI. No acute ischemic changes. She has been noted to be slightly hypertensive and states that she does take her blood pressure medication. She goes on about her ongoing debility and leg weakness, this seems to be a problem since January that she is followed by PCP and physical therapy for. There does not seem to be an acute change in symptoms. Do not feel there is related to her chest pain. Patient was monitored emergency department, no additional findings. Was given a single dose of Norvasc which improved her blood pressure. Lab work was obtained, no leukocytosis or anemia. Potassium and magnesium were slightly low side was normal replaced orally. The patient states that she is previously prescribed these oral replacement medications, but she does not like taking, so she tries to use them. She tries to manage these with her diet. = Patient requesting MRI intake testing which was sent off. Follow-up prior primary care doctor. She has a follow-up appointment next week. ) in. the patient regarding is recommended to have a blood pressure log and keep track of her blood pressure for the next week until she follows up with her PCP so that any changes her blood pressure medication can be made at that time. Quality:SDOH Health Related Social Needs: No Data to Display PFSH All Active Problems (Updated 07/13/24 @ 18:29 by Jose Carlos Yanez MD) Chest pain (Acute) Hypomagnesemia (Acute) Hypokalemia (Acute) Hypertension (Chronic) Weak arterial pulse (Acute) Thickened endometrium (Acute) Cystocele and rectocele with incomplete uterovaginal prolapse (Acute) Family history of cancer (Acute) Endometrial thickening on ultrasound (Acute) Iliotibial band syndrome of both sides (Acute) Trochanteric bursitis, left hip (Acute) Peroneal tendinitis, left leg (Acute) Tear of right gluteus medius tendon (Acute) Tendonitis involving right hip abductors (Acute) Trochanteric bursitis, right hip (Acute) DEPO MEDROL 12/29/23 Hallux rigidus, left foot (Acute) Acquired hallux varus of both feet (Acute) Pain in right foot (Acute) Pain in left foot (Acute) Left rotator cuff tear (Acute) Diverticulitis of sigmoid colon (Acute) Nausea alone (Acute) Discharge planning issues (Acute) Hepatic cyst (Acute) Abdominal pain (Acute) Medical History (Updated 07/13/24 @ 18:29 by Jose Carlos Yanez MD) Anxiety disorder Major depression Hyperlipidemia Lyme disease Obesity Vitamin D deficiency Diverticulitis large intestine Hypertension GERD (gastroesophageal reflux disease) Liver cyst Psoriasis Diastolic dysfunction Mitral regurgitation Depression Invasive ductal carcinoma of right breast in female Overactive bladder Obstructive sleep apnea Insomnia Surgical History ductal excision Colonoscopy - MAC (08/18/17) Breast, Mastectomy Bilateral (09/18/15) Breast, Lumpectomy Family History Sister Breast cancer Cancer Uterine Mother Cancer Uterine cancer; pancreatic cancer Social History Smoking/Tobacco Use Status: Never Smoking risk assessment performed?: Yes Alcohol Intake: never Drug use: Never Substance use type: does not use Housing: house Current gender identity: female Do you feel safe at home: Yes Do you feel safe in your relationship?: Yes
[2024-07-15 09:06] LABS: Lyme Ab w Rflx to Lyme Confirm Negative (Negative)
[2024-07-17 16:11] LABS: Anaplasma phagocytophilum Negative (Negative); B. miyamotoi PCR Negative (Negative); Babesia divergens/MO-1 Negative (Negative); Babesia duncani Negative (Negative); Babesia microti Negative (Negative); Ehrlichia chaffeensis Negative (Negative); Ehrlichia ewingii/canis Negative (Negative); Ehrlichia muris eauclairensis Negative (Negative)
== END 2024-07-13 18:59 | disposition home or self-care (01) ==
PROVIDERS: Emergency Provider Emergency Medicine; PCP Physician Assistant Medical
DX: I10 Essential (primary) hypertension (principal); E87.6 Hypokalemia; E83.42 Hypomagnesemia; R53.1 Weakness; R07.9 Chest pain, unspecified
CPT/HCPCS: 99284; 99283; 36415; 80053; 87798; 93005; 83735; 83880; 84484; 85025; 86618; 93010

== ENCOUNTER → 2024-07-21 12:57 | Outpatient (BNVA) | payer MEDICARE, SELFPAY | PROVIDERS: PCP Physician Assistant Medical; Referring Provider Physician Assistant Medical; Visit Provider Physical Therapy Assistant | DX: I73.89 Other specified peripheral vascular diseases (principal) | CPT/HCPCS: 93922 ==

== ENCOUNTER → 2024-07-27 12:45 | Outpatient (BNVA) | payer MEDICARE, SELFPAY | PROVIDERS: PCP Physician Assistant Medical; Visit Provider Student in an Organized Health Care Education/Training Program | DX: M70.61 Trochanteric bursitis, right hip (principal); S76.011A Strain of muscle, fascia and tendon of right hip, initial encounter; M76.31 Iliotibial band syndrome, right leg; M76.32 Iliotibial band syndrome, left leg; X58.XXXA Exposure to other specified factors, initial encounter | CPT/HCPCS: 99213 ==

== ENCOUNTER 2024-08-02 00:20 | Outpatient (CLI) | payer MEDICARE, SELFPAY ==
--- NOTE | 2024-08-02 13:41 | DI.RAD_ITS ---
Exam(s) XR LUMBAR SPINE COMPLETE EXAM: XR LUMBAR SPINE COMPLETE CLINICAL HISTORY: Bilat leg weakness R29.898 symptoms/signs musculoskel system Low back pain. TECHNIQUE: 2D digital imaging was performed. Five views. COMPARISON: No exams were available for comparison FINDINGS: Exam is mildly limited by overlying bowel gas and fecal material. BONES: No fracture or destructive lesion. Vertebral body heights are maintained. Endplate osteophytes are present greatest at L2-3 and L3-4. Facet degenerative changes present, greater at the lower levels. DISKS: Mild narrowing of the L5-S1 disc space. The remaining intervertebral disc spaces are maintained. Mild degenerative changes are noted in the sacroiliac joints. Hip joint spaces appear maintained. ALIGNMENT: Lumbar spinal alignment is within normal limits. SOFT TISSUE: Normal. IMPRESSION: Degenerative changes, greatest at L5-S1. DATA REPOSITORY: RADIATION DOSE DELIVERED:
--- NOTE | 2024-08-02 14:30 | DI.US_ITS ---
APPROVED REPORT EXAM: Comprehensive 2D, Doppler, and color-flow Echocardiogram Patient Location: Out-Patient Retrofit Installer: Jenaro Edmondson RDCS (AE) Indications: HF w/ mildly reduced EF Other Information Study Quality: Adequate Conclusion Normal left ventricular wall thickness and chamber size. Ejection fraction is 55%. There are no segmental wall motion abnormalities Normal right ventricular size and function Both atria are normal in size Aortic valve is mildly sclerotic and trileaflet without stenosis or regurgitation Normal mitral valve with mild regurgitation Wall motion Left Ventricle The left ventricle is normal size. The left ventricular systolic function is normal. The left ventricular ejection fraction is within the normal range. There is normal left ventricular wall thickness. There is normal LV segmental wall motion. There is no ventricular septal defect visualized. LVEF is 55% Right Ventricle The right ventricle is normal size. The right ventricular systolic function is normal. Atria The left atrium size is normal. The right atrium size is normal. The interatrial septum is intact with no evidence for an atrial septal defect. Aortic Valve The aortic valve is mildly sclerotic. Aortic valve is trileaflet. There is no aortic valvular stenosis. No aortic regurgitation is present. Mitral Valve The mitral valve is normal in structure. No evidence of mitral valve stenosis. Mild mitral regurgitation. Tricuspid Valve The tricuspid valve is normal in structure. There is no tricuspid valve stenosis. Trace tricuspid regurgitation. Pulmonic Valve The pulmonary valve is normal in structure. There is no pulmonic valvular stenosis. Mild pulmonic regurgitation. Great Vessels The aortic root is normal in size. The ascending aorta is normal in size. IVC is normal in size and collapses >50% with inspiration. Pericardium There is no pericardial effusion. 2D Dimensions IVSD d PLAX 0.85 cm F: 0.6-1.0 Ao Root d 2.60 cm F: 2.7 - 3.3 LVPW d PLAX 0.89 cm F: 0.6 - 1.0 Ao Asc Diam d 2.95 cm F: 2.3 - 3.1 LVID d PLAX 4.46 cm F: 3.8 - 5.2 LVDs 3.27 cm F: 2.2 - 3.5 LV EF Teichholz 52.3 % FS 26.66 % LV EDV (Teich) 90.4 mL LV ESV (Teich) 43.1 mL Stroke Vol Index (Teich) 29.37 M-Mode TAPSE 1.92 cm (M/F) >1.7 Auto EF LV EDV A4C 70.8 mL LV EDV A2C 81.0 mL LV EDV BP 78.6 mL LV ESV A4C 33.8 mL LV ESV A2C 38.7 mL LV ESV BP 36.1 mL LVEF(%) A4C 52.3 % LVEF(%) A2C 52.2 % LVEF(%) BP 54.0 % LV SV A4C 37.0 ml LV SV A2C 42.3 ml LV SV BP 42.4 ml LV CO A4C 2.5 L/min LV CO A2C 2.9 L/min LV CO BP 2.7 L/min HR A4C 66.89 BPM HR A2C 67.67 BPM LV EDV Index (BP) LA Volume LA Length A4C 3.7 cm LA Length A2C 4.4 cm LA Area A4C s 8.20 cm2 LA Area A2C s 11.62 cm2 LA Vol A4C A-L 15.23 mL LA Vol A2C A-L 26.22 mL LA Vol Biplane A-L 21.6 mL LA Vol/BSA A4C A-L LA Vol/BSA A2C A-L LA Vol/BSA BP A-L 13.4 mL/m2 LA Vol A4C MOD 13.8 mL LA Vol A2C MOD 24.6 mL LA Vol BP MOD 19.8 mL RA Volume RA Area A4C 6.9 cm2 RA ESV A4C (A-L) 11.3mL RA Vol/BSA A4C A-L RA Length A4C 3.6 cm RA ESV A4C (MOD) 10.9mL LV Diastology MV E' medial 0.046 (>0.07 m/s) MV E Vmax 0.48 (0.4-1.3 m/s) MV E/E' MED 10.31 (<14) MV A Vmax 0.75 (0.4-1.3 m/s) MV E' lateral 0.082 (>0.1 m/s) E/A Ratio 0.6 MV E/E' LAT 5.82 (<14) MV E' Average 0.064 m/s MV E/E'(average) 7.44 Aortic Valve AoV Vmax 0.80 m/s LVOT Vmax 0.77 m/s AoV Peak Grad 2.5 mmHg LVOT Peak Grad 2.4 mmHg AoV Area (Vmax) 3.02 cm2 LVOT VTI 0.159 m AoV VTI 0.184 m LVOT Mean Grad 1.3 mmHg AoV Mean Braxton. 0.56 m/s LVOT SV 49.79 mL AoV Mean Grad 1.5 mmHg LVOT Diam s 1.95 cm AoV Area (VTI) 2.71 cm2 AV Regurg Peak Gr. 2.54 mmHg Velocity Ratio 0.96 Mitral Valve MV DT 218 (160-240 msec) Pulmonary Valve PV Vmax 0.55 (0.5-1.5 m/s) RVOT Vmax 0.38 m/s PV Peak Grad 1.2 mmHg RVOT Peak Gr. 0.6 mmHg PV Mean Braxton 0.40 m/s RVOT VTI 0.090 m PV Mean Grad 0.7 mmHg RVOT Mean Gr. 0.3 mmHg
== END 2024-08-02 00:40 ==
LOC: DI 00:20
PROVIDERS: PCP Physician Assistant Medical; Visit Provider Family Medicine
DX: I50.20 Unspecified systolic (congestive) heart failure (principal); I35.0 Nonrheumatic aortic (valve) stenosis; M51.372 Other intervertebral disc degeneration, lumbosacral region with discogenic back pain and lower extremity pain
CPT/HCPCS: 93306; 72110

== ENCOUNTER 2024-09-04 14:00 | Emergency (ER) | payer MEDICARE, SELFPAY ==
[2024-09-04 14:06] VITALS: BP 140/78; PULSE 64; RESP 18; TEMP 36.9; O2SAT 98
--- NOTE | 2024-09-04 14:30 | DI.CT_ITS ---
Exam(s) CT ABDOMEN PELVIS W EXAM: CT ABDOMEN PELVIS W CLINICAL HISTORY: llq pain, eval divertic TECHNIQUE: Imaging Protocol: Axial computed tomography images with coronal and sagittal reformatted images were created and reviewed. CONTRAST MATERIAL: Intravenous: Omnipaque 350 Contrast volume:75 mL Oral: No COMPARISON: CT CT ABDOMEN PELVIS WO from 06/28/[address] ABDOMEN PELVIS W from 06/26/2023 FINDINGS: ABDOMEN: Lung Bases: There is a small hiatal hernia. Liver: There is diffuse decreased attenuation of the liver consistent with fatty infiltration. The liver is enlarged. There are hepatic cysts present. The largest is in the right lobe and measures 4.6 x 4.0 cm. Portal, Superior Mesenteric, and Splenic Veins: Unremarkable. Gallbladder and Biliary Tract: The gallbladder is absent. There is no significant biliary ductal dilatation. Pancreas: Normal density, no abnormal calcifications or inflammatory process. Spleen: Normal. Adrenals: No masses seen. Kidneys: Normal size, contour and axis. No radiodense stones or obstructive uropathy. There is a simple cyst in the left kidney. No follow-up is recommended. There is mild left renal cortical scarring. Abdominal Aorta: Abdominal portion non-dilated. Atherosclerotic calcification is present. Bowel: There is diverticulosis of the colon without evidence of acute diverticulitis. There is no evidence of bowel obstruction or bowel wall thickening. There is no evidence of appendicitis. Peritoneal Cavity: No ascites, collection or mesenteric inflammatory response. No free air. Lymph Nodes: Within normal limits. Bones: Within normal limits for the patient's age. Soft Tissues: Unremarkable. PELVIS: Bladder: Symmetric distention, no gross wall thickening. Reproductive Organs: Unremarkable as visualized. Lymph Nodes: Within normal limits. Bones: Within normal limits for the patient's age. IMPRESSION: 1. No acute abdominal or pelvic process. 2. Colonic diverticulosis without evidence of acute diverticulitis. 3. Hepatomegaly and hepatic steatosis. 4. The preliminary [facility] report was reviewed. RADIATION DOSE DELIVERED: 483.17mGy.cm Total DLP DATA REPOSITORY: All CT scans at this facility are submitted to the National Radiology Data Registry (NRDR) Dose Index Registry (DIR) with the [employer] ([employer]). RADIATION OPTIMIZATION: All CT scans at this facility use at least one of these dose optimization techniques: automated exposure control; mA and/or kV adjustment per patient size (includes targeted exams where dose is matched to clinical indication); or iterative reconstruction.
--- NOTE | 2024-09-04 14:33 | W.ED.GENAD ---
Discharge Plan Disposition Patient Disposition: Home Discharge Details Clinical Impression: Nausea vomiting and diarrhea Primary Care Provider: Rabia Jorge ED Provider: Jose Carlos Yanez Home Meds and New Rx's Prescriptions: No Action trazodone 100 mg tablet 50 mg PO HS dicyclomine 10 mg capsule 10 mg PO QID PRN diazepam 5 mg tablet 5 mg PO QHS PRN metoprolol tartrate 25 mg tablet 25 mg PO BID cholecalciferol (vitamin D3) [Vitamin D3] 1,000 UNIT capsule 1,000 unit PO DAILY ondansetron HCl 8 mg tablet 8 mg PO PRN PRN Patient Comments: TAKE 1 TABLET BY MOUTH THREE TIMES DAILY NEEDED clobetasol 0.05 % ointment 0.05 applic TOPICAL PRN PRN Patient Comments: Apply 1 a small amount to affected area twice a day as needed For vaginal itching omeprazole 20 MG capsule,delayed release(DR/EC) 20 mg PO DAILY 0RF meclizine [Antivert] 25 MG tablet 25 mg PO TID PRN PRN (Reason: Vertigo) Qty: 20 0RF Discharge Instructions Additional Instructions: No signs of diverticulitis on your workup today. Your electrolytes are all within normal limits. Magnesium is slightly low, but does not need to be repleted. Foods like banana can be helpful for your magnesium level and your diarrhea Take your Zofran as needed for any nausea. Continue clear liquids and advance your diet slowly as tolerated. If you are not tolerating anything by mouth is a reason to come back to the emergency department, otherwise keep you follow up appointment with your PCP HPI General Date/Time Provider Initiated Documentation: 09/04/24 14:13. Limitations to Documentation: no limitations. Information obtained by: patient. HPI Narrative: 73-year-old female with past medical history of diverticulosis, presents for evaluation of diarrhea, nausea and vomiting. She reports symptoms have been ongoing for the last few days. She reports fever and chills yesterday. She initially had vomiting, but now just has severe nausea. Reports several episodes of watery stool, has not noted any blood in it. Reports pain localized to the left lower area of her abdomen. Reports that she does have a history of diverticulitis and that this feels similar. Related Data Home Medications ?Medication ?Instructions ?Recorded ?Confirmed cholecalciferol (vitamin D3) 25 1,000 unit PO DAILY 08/22/15 09/04/24 mcg (1,000 unit) capsule (Vitamin D3) omeprazole 20 mg capsule,delayed 20 mg PO DAILY 06/03/17 09/04/24 release meclizine 25 mg tablet (Antivert) 25 mg PO TID PRN PRN Vertigo #20 08/30/17 09/04/24 tabs clobetasol 0.05 % topical ointment 0.05 applic topical PRN PRN 08/18/22 09/04/24 ondansetron HCl 8 mg tablet 8 mg PO PRN PRN 08/18/22 09/04/24 trazodone 100 mg tablet 50 mg PO HS 08/26/23 09/04/24 diazepam 5 mg tablet 5 mg PO QHS PRN 07/06/24 09/04/24 dicyclomine 10 mg capsule 10 mg PO QID PRN 07/06/24 09/04/24 metoprolol tartrate 25 mg tablet 25 mg PO BID 07/27/24 09/04/24 Previous Rx's ?Medication ?Instructions ?Recorded omeprazole 20 mg capsule,delayed 20 mg PO DAILY 06/03/17 release meclizine 25 mg tablet (Antivert) 25 mg PO TID PRN PRN Vertigo #20 08/30/17 tabs Allergies Allergy/AdvReac Type Severity Reaction Status Date / Time amitriptyline Allergy Severe nervousness,weakness, Verified 09/04/24 14:15 suicidal ideation simvastatin Allergy Intermediate myalgias Verified 09/04/24 14:15 metronidazole (From Flagyl) Allergy Unknown Skin Rash Verified 09/04/24 14:15 Sulfa (Sulfonamide Allergy Unknown Skin Rash Verified 09/04/24 14:15 Antibiotics) fluoxetine AdvReac Severe nervousness,weakness, Verified 09/04/24 14:15 suicidal ideation adhesive tape AdvReac Intermediate Skin Rash Verified 09/04/24 14:15 diclofenac AdvReac Intermediate burning of Verified 09/04/24 14:15 skin hydrocodone bitartrate (From AdvReac Intermediate Nausea, Verified 09/04/24 14:15 [place]) Dizziness/Lightheaded nickel AdvReac Unknown Itching Verified 09/04/24 14:15 Penicillins AdvReac Unknown Skin Rash Verified 09/04/24 14:15 gluten AdvReac Diarrhea Verified 09/04/24 14:15 lactose AdvReac Diarrhea Verified 09/04/24 14:15 General Stated Complaint: Abd Prob GROVER: 3 Exam Narrative Exam Narrative: Review of Systems: All systems reviewed & are unremarkable except as noted in HPI and below Well-developed, no acute distress NCAT PERRL, normal conjunctiva RRR Unlabored respiratory effort Nondistended abdomen mild left lower quadrant tenderness no guarding or rebounding Extremities w/o deformity, no cyanosis, no edema Course Vital Signs Vital signs: Vital Signs Temperature 36.9 C 09/04/24 14:06 Pulse 64 09/04/24 14:06 Respiratory Rate 18 09/04/24 14:06 Blood Pressure 140/78 09/04/24 14:06 Pulse Oximetry 98 09/04/24 14:06 Temperature 36.9 C 09/04/24 14:06 Temperature Source Oral 09/04/24 14:06 Pulse 64 09/04/24 14:06 Respiratory Rate 18 09/04/24 14:06 Blood Pressure 140/78 09/04/24 14:06 Blood Pressure Position Sitting 09/04/24 14:06 Pulse Oximetry 98 09/04/24 14:06 Oxygen Delivery Method Room Air 09/04/24 14:06 Oxygen Flow Rate 0 09/04/24 14:06 Pain Level 3 09/04/24 14:06 Medical Decision Making Emergent evaluation of vomiting and diarrhea. Initial differential includes gastroenteritis, diverticulitis, intra-abdominal infection or electrolyte derangement or dehydration also considered. Plan for lab work, IV fluids, antiemetics and CT imaging to evaluate for complications. Lab work reviewed, there is no leukocytosis anemia or electrolyte derangement. Magnesium is slightly low at 1.7. Procalcitonin and inflammatory markers are not elevated at all. Urinalysis does not reveal any signs of infection. A CT scan was obtained. I reviewed the V rad report which indicates significant diverticulosis without any evidence of diverticulitis or other intra-abdominal condition. At this time there does not appear to be an acute emergency causing the patient's ongoing diarrhea. She is tolerating p.o. She has Zofran at home. She is otherwise hemodynamically stable. I advised continued supportive care and follow-up with her PCP which she has scheduled for next week. Return guidance discussed with the patient. PFSH All Active Problems (Updated 09/04/24 @ 19:03 by Jose Carlos Yanez MD) Nausea vomiting and diarrhea (Acute) Weakness (Acute) Weak arterial pulse (Acute) Thickened endometrium (Acute) Cystocele and rectocele with incomplete uterovaginal prolapse (Acute) Family history of cancer (Acute) Endometrial thickening on ultrasound (Acute) Iliotibial band syndrome of both sides (Acute) Trochanteric bursitis, left hip (Acute) Peroneal tendinitis, left leg (Acute) Tear of right gluteus medius tendon (Acute) Tendonitis involving right hip abductors (Acute) Trochanteric bursitis, right hip (Acute) DEPO MEDROL 12/29/23 Hallux rigidus, left foot (Acute) Acquired hallux varus of both feet (Acute) Pain in right foot (Acute) Pain in left foot (Acute) Left rotator cuff tear (Acute) Diverticulitis of sigmoid colon (Acute) Nausea alone (Acute) Discharge planning issues (Acute) Hepatic cyst (Acute) Abdominal pain (Acute) Medical History (Updated 09/04/24 @ 19:03 by Jose Carlos Yanez MD) Anxiety disorder Major depression Hyperlipidemia Lyme disease Obesity Vitamin D deficiency Diverticulitis large intestine Hypertension GERD (gastroesophageal reflux disease) Liver cyst Psoriasis Diastolic dysfunction Mitral regurgitation Depression Invasive ductal carcinoma of right breast in female Overactive bladder Obstructive sleep apnea Insomnia Surgical History (Updated 09/02/24 @ 13:48 by Lori Yung RN, RN) Hx of cholecystectomy ductal excision Colonoscopy - MAC (08/18/17) Breast, Mastectomy Bilateral (09/18/15) Breast, Lumpectomy Family History (Updated 09/02/24 @ 13:47 by Lori Yung RN, RN) Sister Breast cancer Cancer Uterine Mother , 64 due to pancreatic ca Cancer Uterine cancer; pancreatic cancer Depression Hypertension Son Stroke Bipolar 1 disorder Diabetes Father , 75 stroke Stroke Brother , suicide at 20 Depression Daughter Epilepsy Migraine Social History Smoking/Tobacco Use Status: Never Smoking risk assessment performed?: Yes Alcohol Intake: never Drug use: Never Substance use type: does not use Housing: house Current gender identity: female Do you feel safe at home: Yes Do you feel safe in your relationship?: Yes
[2024-09-04] MEDS: Normal Saline 1,000 ML 1000 ML IV (15:15)
[2024-09-04] MEDS: Ondansetron 4 MG/2 ML VIAL IVP (15:22)
[2024-09-04 15:30] LABS: Abs Immature Grans 0.02 10^3/uL (0.0-0.06); HCT 40.9 % (36.0-46.0); HGB 13.7 g/dL (11.2-15.7); Immature Grans % 0.3 %; MCH 29.6 pg (27.0-33.0); MCHC 33.5 % (32.0-36.0); MCV 88 fL (80-95); MPV 10.6 fL (8.0-11.0); Platelet Count 289 10^3/uL (130-400); RBC 4.63 10^6/uL (3.93-5.22); RDW 12.7 % (11.7-14.6); RDW-SD 41.1 fL; WBC 7.95 10^3/uL (4.4-10.8)
[2024-09-04 15:41] LABS: ESR 18 mm/hr (0-30)
[2024-09-04 16:35] VITALS: BP 157/55; PULSE 62; RESP 16; O2SAT 99
[2024-09-04 16:40] LABS: Glucose Negative (Negative)
[2024-09-04 16:50] VITALS: BP 157/55; PULSE 62; RESP 16; TEMP 36; O2SAT 99
[2024-09-04 17:02] LABS: C & S Indicated? No; RBC 0-2 HPF (0-2)
[2024-09-04 17:07] LABS: ALT 24 U/L (14-59); AST 21 U/L (15-37); Albumin 3.4 g/dL (3.4-5.0); Alkaline Phosphatase 81 U/L (46-116); Anion Gap 11.0 mmol/L (3-11); BUN 9 mg/dL (7-18); Bilirubin, Total 0.7 mg/dL (0.2-1.0); CO2 25.0 mmol/L (21.0-32.0); Calcium 8.6 mg/dL (8.5-10.1); Chloride 105 mmol/L (98-107); Estimated GFR 78.72 (mL/min/1.73m2); Glucose 84 mg/dL (74-106); Magnesium 1.7 mg/dL (1.8-2.4); Potassium 3.7 mmol/L (3.5-5.1); Sodium 141 mmol/L (136-145); TSH (W/Ref FT4) 0.93 uIU/mL (0.36-3.74); Total Protein 7.1 g/dL (6.4-8.2)
[2024-09-04 17:08] LABS: C-Reactive Protein < 0.50 mg/dL (<or=0.5)
[2024-09-04 17:13] LABS: Procalcitonin < 0.10 ng/mL
[2024-09-04] MEDS: Normal Saline - Diluent 50 ML VIAL IJ (17:30)
[2024-09-04] MEDS: Omnipaque 350 MG/ML 100 ML BTL IJ (17:32)
[2024-09-04 17:55] VITALS: BP 159/46; PULSE 64; RESP 18; O2SAT 98
--- NOTE | 2024-09-04 18:52 | DI.[facility]_ITS ---
PROCEDURE INFORMATION: Exam: CT Abdomen And Pelvis With Contrast Exam date and time: 09/04/2024 5:29 PM Age: 73 years old Clinical indication: Other: Llq pain, eval divertic TECHNIQUE: Imaging protocol: Computed tomography of the abdomen and pelvis with contrast. Contrast material: OMNIPAQUE 350; Contrast volume: 75 ml; Contrast route: INTRAVENOUS (IV); COMPARISON: CT ABDOMEN PELVIS W 10/23/2023 15:39 FINDINGS: Heart: Cardiomegaly. Diaphragm: Hiatal hernia. Liver: New hepatic steatosis compared with prior study. The simple hepatic cysts involving the right and left hepatic lobe have decreased in size compared with the prior study. Gallbladder and biliary ducts: Normal. No calcified stones. No ductal dilation. Pancreas: Normal. No ductal dilation. Spleen: Normal. No splenomegaly. Adrenal glands: Normal. No mass. Kidneys and ureters: Normal. No hydronephrosis. Stomach and bowel: Diverticulitis throughout the colon with extensive diverticuli involving the sigmoid colon. There is no CT evidence for diverticulitis. Normal caliber small bowel. Appendix: No evidence of appendicitis. Intraperitoneal space: Unremarkable. No free air. No significant fluid collection. Vasculature: Atherosclerotic disease. Lymph nodes: Unremarkable. No enlarged lymph nodes. Urinary bladder: Unremarkable as visualized. Reproductive: Stable 1.0 cm hypodensity in the left fundus of the uterus. The adnexa are unremarkable. Bones/joints: Multilevel degenerative scoliotic changes of the spine. Soft tissues: Unremarkable. IMPRESSION: 1. Scattered diverticuli throughout the colon with extensive diverticuli involving the sigmoid colon without CT evidence of diverticulitis. Recommend clinical correlation. 2. Hepatic steatosis. Interval decrease in size of the hepatic cysts compared to the prior study. 3. Additional findings as discussed above. Dictated and Authenticated by: Selma Alva MD. Orderin Beau Chandra MD
[2024-09-04 19:14] VITALS: BP 159/46; PULSE 64; RESP 18; O2SAT 98
--- NOTE | 2024-09-16 08:03 | NUR.NOTE ---
accessed [facility] for CAHPS review per Taylor Silver Note:
== END 2024-09-04 19:14 | disposition home or self-care (01) ==
PROVIDERS: Emergency Provider Emergency Medicine; PCP Physician Assistant Medical
DX: R11.0 Nausea (principal); R19.7 Diarrhea, unspecified; I10 Essential (primary) hypertension; E78.5 Hyperlipidemia, unspecified
CPT/HCPCS: 36415; 80053; 82962; 84145; 85652; 96361; 96374; 99285; 74177; 81003; 81015; 83735; 84443; 85025; 86140; J2405; J3490

== ENCOUNTER 2024-09-07 17:17 | Outpatient (REF) | payer MEDICARE, SELFPAY ==
[2024-09-07 19:34] LABS: Anion Gap 7.1 mmol/L (3-11); BUN 9 mg/dL (7-18); CO2 27.9 mmol/L (21.0-32.0); Calcium 9.2 mg/dL (8.5-10.1); Chloride 103 mmol/L (98-107); Estimated GFR 60.23 (mL/min/1.73m2); Glucose 115 mg/dL (74-106); Magnesium 1.7 mg/dL (1.8-2.4); Potassium 3.6 mmol/L (3.5-5.1); Sodium 138 mmol/L (136-145)
== END 2024-09-07 17:18 | disposition home or self-care (01) ==
LOC: NCHCN 17:17
PROVIDERS: PCP Physician Assistant Medical; Visit Provider Physician Assistant Medical
DX: R30.0 Dysuria (principal)
CPT/HCPCS: 80048; 87077; 83735; 87086; 87186

== ENCOUNTER → 2024-09-22 08:29 | Outpatient (BNVA) | payer MEDICARE, SELFPAY | PROVIDERS: PCP Physician Assistant Medical; Referring Provider Physician Assistant Medical; Visit Provider Psychiatry & Neurology Neurology | DX: R53.1 Weakness (principal); R20.0 Anesthesia of skin; G70.9 Myoneural disorder, unspecified; I10 Essential (primary) hypertension | CPT/HCPCS: 99215 ==

== ENCOUNTER 2024-09-22 18:39 | Outpatient (REF) | payer MEDICARE, SELFPAY ==
[2024-09-22 21:09] LABS: Creatine Kinase 43 U/L (26-192)
[2024-09-27 04:35] LABS: ACh Receptor(Muscle)Binding Ab 0.00 nmol/L (<=0.02)
== END 2024-09-22 18:40 | disposition home or self-care (01) ==
LOC: NCHCN 18:39
PROVIDERS: PCP Physician Assistant Medical; Visit Provider Family Medicine
DX: R39.9 Unspecified symptoms and signs involving the genitourinary system (principal); R29.898 Other symptoms and signs involving the musculoskeletal system; R82.89 Other abnormal findings on cytological and histological examination of urine
CPT/HCPCS: 82550; 83519; 87086

== ENCOUNTER 2024-10-21 12:25 | Outpatient (CLI) | payer MEDICARE, SELFPAY ==
--- NOTE | 2024-10-21 13:00 | DI.MRI_ITS ---
Exam(s) MR BRAIN WO EXAM: MR BRAIN WO CLINICAL HISTORY: R hemisensory loss,weakness,r53.1,r20.0. TECHNIQUE: Multiplanar multisequence MRI of the brain was performed. CONTRAST MATERIAL: IV Contrast: ML of Dotarem contrast administered. COMPARISON: No exams were available for comparison FINDINGS: VENTRICLES AND EXTRA AXIAL SPACES: The ventricles appear symmetrically dilated. No significant periventricular edema. HEMORRHAGE: None. CEREBRAL PARENCHYMA: No focus of restricted diffusion to suggest acute infarct. No space-occupying lesion identified. No significant [place] and ventricular edema. There are roughly symmetric multiple foci of high signal in both cerebral hemispheres, greater in the high frontal and parietal lobes, non specific but likely reflecting microvascular changes. There is mild to moderate cerebral atrophy. BRAINSTEM/CEREBELLUM: Normal. CALVARIUM: Normal. ENHANCEMENT: No suspicious enhancement identified. VISUALIZED PARANASAL SINUSES/MASTOIDS: Clear. Orbits: Unremarkable. Pituitary: Not enlarged. Partially empty sella. Vasculature: Normal flow voids. IMPRESSION: Enlarged ventricles could indicate normal pressure hydrocephalus. [id number] atrophy. Abnormal white matter foci, nonspecific but may reflect sequela of chronic microvascular ischemia. DATA REPOSITORY:
--- NOTE | 2024-10-21 13:50 | DI.MRI_ITS ---
Exam(s) MR CERVICAL SPINE WO EXAM: MR CERVICAL SPINE WO CLINICAL HISTORY: R hemisensory loss,weakness,r20.0,r53.1 TECHNIQUE: Multiplanar multisequence MRI of the cervical spine was performed without intravenous contrast. COMPARISON: No exams were available for comparison FINDINGS: BONES: Vertebral body heights are maintained. Alignment is normal. Bone marrow signal intensity is within normal limits. CERVICAL CORD: Craniovertebral junction is unremarkable. The cervical cord is normal size and signal intensity. SOFT TISSUES: Unremarkable. C2-3: No disc herniation or bulge is identified. No evidence of neural foraminal narrowing. No significant central canal stenosis. C3-4: No disc herniation or bulge is identified. No evidence of neural foraminal narrowing. No significant central canal stenosis. C4-5: The disc height is maintained. There is minimal disc bulging. No focal disc herniation. No evidence of neural foraminal narrowing. No significant central canal stenosis. C5-6: The disc height is maintained. There is minimal disc bulging. Small endplate osteophytes. No focal disc herniation. No evidence of neural foraminal narrowing. No significant central canal stenosis. C6-7: Minimal disc bulging. No focal disc herniation. No evidence of neural foraminal narrowing. No significant central canal stenosis. C7-T1: No disc herniation or bulge is identified. No evidence of neural foraminal narrowing. No significant central canal stenosis. IMPRESSION: Mild degenerative disc changes at C4-5 through C6-7. The cord signal is normal. DATA REPOSITORY:
== END 2024-10-21 12:45 ==
LOC: DI 12:25
PROVIDERS: PCP Physician Assistant Medical; Visit Provider Psychiatry & Neurology Neurology
DX: M50.021 Cervical disc disorder at C4-C5 level with myelopathy (principal); M50.023 Cervical disc disorder at C6-C7 level with myelopathy; R20.0 Anesthesia of skin; G91.8 Other hydrocephalus; R93.0 Abnormal findings on diagnostic imaging of skull and head, not elsewhere classified
CPT/HCPCS: 70551; 72141

== ENCOUNTER → 2024-10-26 13:20 | Outpatient (BNVA) | payer MEDICARE, SELFPAY | PROVIDERS: PCP Physician Assistant Medical; Referring Provider Physician Assistant Medical; Visit Provider Psychiatry & Neurology Neurology | DX: R53.1 Weakness (principal); R20.0 Anesthesia of skin; I10 Essential (primary) hypertension | CPT/HCPCS: 99214 ==

== ENCOUNTER 2024-11-30 15:33 | Emergency (ER) | payer MEDICARE, SELFPAY ==
[2024-11-30 15:56] VITALS: BP 136/86; PULSE 83; RESP 18; TEMP 37.8; O2SAT 98
--- NOTE | 2024-11-30 17:27 | DI.CT_ITS ---
Exam(s) CT ABDOMEN PELVIS W EXAM: CT ABDOMEN PELVIS W CLINICAL HISTORY: RLQ tenderness, suprapubic pain, R CVA tenderness TECHNIQUE: Imaging Protocol: Axial computed tomography images with coronal and sagittal reformatted images were created and reviewed. CONTRAST MATERIAL: Intravenous: Omnipaque 350 Contrast volume:75 mL Oral: No COMPARISON: CT ABD PELVIS WITH CONTRAST from 07/08/[address] ABDOMEN PELVIS WO from 06/21/[address] ABDOMEN PELVIS WO from 06/28/[address] ABDOMEN PELVIS W from 06/26/2023 FINDINGS: ABDOMEN: Lung Bases: No acute abnormality. There is a small hiatal hernia. Liver: Normal density. There are hepatic cysts seen in the liver. No suspicious hepatic masses are present. Portal, Superior Mesenteric, and Splenic Veins: Unremarkable. Gallbladder and Biliary Tract: The gallbladder is absent. There is no biliary ductal dilatation. Pancreas: Normal density, no abnormal calcifications or inflammatory process. Spleen: Normal. Adrenals: No masses seen. Kidneys: Normal size, contour and axis. No radiodense stones or obstructive uropathy. There is a simple left renal cyst. No follow-up is recommended. Abdominal Aorta: Abdominal portion non-dilated. Atherosclerotic calcification is present. Bowel: There is diverticulosis seen in the colon. No inflammatory changes are seen to suggest acute diverticulitis. There is no bowel wall thickening or obstruction. The stomach is incompletely distended limiting evaluation. Appendix is unremarkable. Peritoneal Cavity: No ascites, collection or mesenteric inflammatory response. No free air. Lymph Nodes: Within normal limits. Bones: Within normal limits for the patient's age. There is a stable bone island in the left iliac bone. Soft Tissues: Unremarkable. PELVIS: Bladder: Symmetric distention, no gross wall thickening. Reproductive Organs: Unremarkable as visualized. There is a uterine fibroid present. Lymph Nodes: Within normal limits. Bones: Within normal limits for the patient's age. IMPRESSION: 1. No acute abdominal or pelvic process. 2. The preliminary [facility] report was reviewed. RADIATION DOSE DELIVERED: 475.68mGy.cm Total DLP DATA REPOSITORY: All CT scans at this facility are submitted to the National Radiology Data Registry (NRDR) Dose Index Registry (DIR) with the [employer] ([employer]). RADIATION OPTIMIZATION: All CT scans at this facility use at least one of these dose optimization techniques: automated exposure control; mA and/or kV adjustment per patient size (includes targeted exams where dose is matched to clinical indication); or iterative reconstruction.
--- NOTE | 2024-11-30 17:30 | W.ED.GENAD ---
Discharge Plan Disposition Patient Disposition: Home Condition: Stable Discharge Details Clinical Impression: Urinary tract infection Primary Care Provider: Rabia Jorge ED Provider: Victor Manuel Gilmore Home Meds and New Rx's Prescriptions: New cephalexin 500 mg capsule 500 mg PO QID 14 Days Qty: 56 0RF No Action fluconazole 150 mg tablet 150 mg PO Q3D 0 Days Qty: 2 0RF zinc oxide 13 % cream 1 applic topical BID-QID PRN (Reason: skin irritation) 90 Days Qty: 454 1RF trazodone 100 mg tablet 50 mg PO HS diazepam 5 mg tablet 5 mg PO QHS PRN metoprolol tartrate 25 mg tablet 25 mg PO BID cholecalciferol (vitamin D3) [Vitamin D3] 1,000 UNIT capsule 1,000 unit PO DAILY ondansetron HCl 8 mg tablet 8 mg PO PRN PRN Patient Comments: TAKE 1 TABLET BY MOUTH THREE TIMES DAILY NEEDED clobetasol 0.05 % ointment 0.05 applic TOPICAL PRN PRN Patient Comments: Apply 1 a small amount to affected area twice a day as needed For vaginal itching omeprazole 20 MG capsule,delayed release(DR/EC) 20 mg PO DAILY 0RF Discharge Instructions Instructions: High Potassium Diet, Cephalexin, Urinary Tract Infection, Adult ED Additional Instructions: You were seen in the emergency department for your urinary tract infection, your CT is negative for any obstruction of the urinary tract or other emergent abdominal pathology like appendicitis. Your blood work shows no severe derangements, you had mild low potassium that can be corrected with high potassium diet, please take your antibiotics as directed, start tomorrow as we gave you IV antibiotics that should cover you for the first 24 hours. Take Tylenol and ibuprofen as needed, take [id number] Azo, stay well-hydrated. Return for any severe acute worsening despite treatment. Referrals: Rabia Jorge PA [Primary Care Provider, Medicine] Discharge Data Discharge Date/Time-TO BE ENTERED AT DEPARTURE: 11/30/24 21:35 HPI General Date/Time Provider Initiated Documentation: 11/30/24 16:01. HPI Narrative: 74 year-old female presents to ED today by POV/ambulating with a chief complaint of lower abdominal pain, discomfort and burning with urination with onset over the past few days- was recently treated for UTI. Quality described as lower abdominal discomfort, burning pain, foul smelling urine, no radiation to fever, urinary retention, chest pain, shortness of breath, incontinence, severe flank pain. Severity is described as moderate. Palliating factors include took one tablet of an AZO pack. Provoking factors include nothing specific. Events leading up to the incident/Associated Symptoms: Patient sees [facility] [facility]. Patient not anticoagulated. Related Data Home Medications ?Medication ?Instructions ?Recorded ?Confirmed cholecalciferol (vitamin D3) 25 1,000 unit PO DAILY 08/22/15 10/26/24 mcg (1,000 unit) capsule (Vitamin D3) omeprazole 20 mg capsule,delayed 20 mg PO DAILY 06/03/17 10/26/24 release clobetasol 0.05 % topical ointment 0.05 applic topical PRN PRN 08/18/22 10/26/24 ondansetron HCl 8 mg tablet 8 mg PO PRN PRN 08/18/22 10/26/24 trazodone 100 mg tablet 50 mg PO HS 08/26/23 10/26/24 diazepam 5 mg tablet 5 mg PO QHS PRN 07/06/24 10/26/24 metoprolol tartrate 25 mg tablet 25 mg PO BID 07/27/24 10/26/24 fluconazole 150 mg tablet 150 mg PO Q3D 2 doses #2 tabs 10/15/24 10/26/24 zinc oxide 13 % topical cream 1 applic topical BID-QID PRN skin 10/15/24 10/26/24 irritation 90 days #454 grams cephalexin 500 mg capsule 500 mg PO QID 14 days #56 caps 11/30/24 Previous Rx's ?Medication ?Instructions ?Recorded omeprazole 20 mg capsule,delayed 20 mg PO DAILY 06/03/17 release fluconazole 150 mg tablet 150 mg PO Q3D 2 doses #2 tabs 10/15/24 zinc oxide 13 % topical cream 1 applic topical BID-QID PRN skin 10/15/24 irritation 90 days #454 grams cephalexin 500 mg capsule 500 mg PO QID 14 days #56 caps 11/30/24 Allergies Allergy/AdvReac Type Severity Reaction Status Date / Time amitriptyline Allergy Severe nervousness,weakness, Verified 11/30/24 16:01 suicidal ideation simvastatin Allergy Intermediate myalgias Verified 11/30/24 16:01 metronidazole (From Flagyl) Allergy Unknown Skin Rash Verified 11/30/24 16:01 Sulfa (Sulfonamide Allergy Unknown Skin Rash Verified 11/30/24 16:01 Antibiotics) fluoxetine AdvReac Severe nervousness,weakness, Verified 11/30/24 16: suicidal ideation adhesive tape AdvReac Intermediate Skin Rash Verified 11/30/24 16:01 diclofenac AdvReac Intermediate burning of Verified 11/30/24 16:01 skin hydrocodone bitartrate (From AdvReac Intermediate Nausea, Verified 11/30/24 16:01 [place]) Dizziness/Lightheaded nickel AdvReac Unknown Itching Verified 11/30/24 16:01 Penicillins AdvReac Unknown Skin Rash Verified 11/30/24 16:01 gluten AdvReac Diarrhea Verified 11/30/24 16:01 lactose AdvReac Diarrhea Verified 11/30/24 16:01 General Stated Complaint: Urinary GROVER: 3 Review of Systems All systems reviewed & are unremarkable except as noted in HPI and below Exam Narrative Exam Narrative: GENERAL APPEARANCE: Well-nourished, non-toxic, awake and alert, atraumatic, mild acute distress. SKIN: Warm, pink, dry, intact, without rashes/lesions/ulcerations. HEAD: Normocephalic, atraumatic, normal hair distribution for gender/age. EYES: Normal conjunctiva, no exudates on lids/lashes. ENT: Nares patent, no circumoral cyanosis, no facial swelling NECK: Supple, trachea midline, painless cervical ROM. LUNGS/CHEST: Lungs CTA bilaterally- no rhonchi/rales/wheezes diffusely, non-labored respirations, normal A/P diameter, symmetrical expansion, no chest wall deformity HEART (CV/PV): Regular rate and rhythm without murmur, no peripheral edema, no JVD. ABDOMEN: Soft, non-distended, no guarding, RLQ tenderness without reboun tenderness, suprapubic distention and mild tenderness, R CVA tenderness to percussion. MSK: Normal ROM, no swelling/deformity to bilateral UEs or LEs, moving all extremities without weakness, no cyanosis, spine midline without tenderness, normal curvature. NEURO: Mental Status AAOx4 - alert to person, place, time, events No facial droop, no forehead involvement. Motor: No focal weakness - strength 5/5 in bilateral UEs and LEs, proximal and distal, symmetric. Sensory: sensation intact to light touch globally. Gait normal: patient ambulated without ataxia into ED room. PSYCH: euthymic, cooperative, pleasant, appropriate speech Course Vital Signs Vital signs: Vital Signs Temperature 37.8 C H 11/30/24 15:56 Pulse 83 11/30/24 15:56 Respiratory Rate 18 11/30/24 15:56 Blood Pressure 136/86 11/30/24 15:56 Pulse Oximetry 98 11/30/24 15:56 Temperature 37.8 C H 11/30/24 15:56 Temperature Source Tympanic 11/30/24 15:56 Pulse 83 11/30/24 15:56 Respiratory Rate 18 11/30/24 15:56 Blood Pressure 136/86 11/30/24 15:56 Pulse Oximetry 98 11/30/24 15:56 Oxygen Delivery Method Room Air 11/30/24 15:56 Oxygen Flow Rate 0 11/30/24 15:56 Medical Decision Making This dictation utilizes [id number] dictation software and may contain unedited grammatical errors. 74 year-old female presents to ED today by POV/ambulating with a chief complaint of lower abdominal pain, discomfort and burning with urination with onset over the past few days- was recently treated for UTI. Quality described as lower abdominal discomfort, burning pain, foul smelling urine, no radiation to fever, urinary retention, chest pain, shortness of breath, incontinence, severe flank pain. Severity is described as moderate. Palliating factors include took one tablet of an AZO pack. Provoking factors include nothing specific. Events leading up to the incident/Associated Symptoms: Patient sees [facility] [facility]. Patients' medical history: CAD, hyperlipidemia, diverticulitis, hypertension, diastolic dysfunction, cystocele and rectocele. Family and social history: noncontributory. Pertinent exam findings / vital signs include suprapubic distention and mild tenderness without peritoneal signs, RLQ tenderness without rebound tenderness, benign cardiopulmonary exam, nontoxic and afebrile, mild R CVA tenderness to percussion. Differential / pathologies of concern include UTI, pyelonephritis, kidney stone, less likely appendicitis. Diagnostic studies of: -CT ABD/Pelvis w Contrast, CBC, CMP, UA, lipase. - CBC shows no leukocytosis, no anemia - CMP shows no acute abnormality - Lipase just under the upper limit of normal at 77 - UA shows significant UTI with greater than 50 WBCs on micro, culture pending Interventions of: -1 g IV Tylenol, 15 mg IV ketorolac, 1 L IVF NS, 2 g IV ceftriaxone, one 5 mg oxycodone tablet to take before bed tonight. Rx for cephalexin. ED Course/Assessment/Plan: 74-year-old female presents with UTI symptoms and dysuria but has right lower quadrant tenderness, CT was performed which showed no acute intra-abdominal findings, no appendicitis, her labs only reveal UTI on urinalysis without any evidence of leukocytosis. She was given IV ceftriaxone and started on Keflex outpatient and will call back for culture results tomorrow. Findings not consistent with urinary retention, infected kidney stone, appendicitis. Disposition of Urinary Tract Infection. Patient verbalized understanding of the plan and return to ED criteria and engaged in shared decision making. Medical Records Medical records reviewed: Yes I reviewed the patient's medical records. Imaging Data Radiologic Study: Attestation: I personally reviewed and interpreted this imaging study as follows: Imaging: CT Scan Radiologist's impression: Exam: CT Abdomen And Pelvis With Contrast Exam date and time: 11/30/2024 7:25 PM Age: 74 years old Clinical indication: Other: Rlq tenderness, suprapubic pain, R CVA tenderness TECHNIQUE: Imaging protocol: Computed tomography of the abdomen and pelvis with contrast. Contrast material: OMNI 350; Contrast volume: 75 ml; Contrast route: INTRAVENOUS (IV); COMPARISON: CT ABDOMEN PELVIS W 09/04/2024 5:29 PM FINDINGS: Lungs: Lung bases are clear. Diaphragm: There is a small hiatal hernia. Liver: The liver has a normal appearance. Multiple circumscribed hypodense foci are present within the liver suggesting the presence of hepatic cysts which are incompletely characterized. Gallbladder and biliary ducts: The gallbladder is not visualized and may be surgically absent. Pancreas: Normal. No ductal dilation. Spleen: The spleen demonstrates normal size. A small splenule is present adjacent to the spleen. Adrenal glands: The adrenal glands have a normal appearance. Kidneys and ureters: The kidneys are normal in size. There is a low-density left renal cyst. No hydronephrosis. No hydroureter or ureterolithiasis. Stomach and bowel: The bowel demonstrates overall normal caliber and wall thickness. There are extensive diverticular outpouchings throughout the colon. No mucosal thickening or pericolonic fat stranding. Appendix: The appendix is thin walled. Intraperitoneal space: Unremarkable. No free air. No significant fluid collection. Vasculature: There are scattered atheromatous calcifications throughout the aorta and iliac arteries. Lymph nodes: No enlarged lymph nodes. Urinary bladder: The bladder is thin walled and fluid filled. Reproductive: The uterus has a normal appearance. There is likely a fibroid within the lower uterine segment. Bones/joints: Bones have a normal appearance. No acute fracture or suspicious bone lesion. Soft tissues: Unremarkable. IMPRESSION: 1. No acute intra-abdominal findings. 2. Normal appendix. 3. Diverticulosis. No acute diverticulitis. Dictated and Authenticated by: Gema Johns MD. Lab Data Lab results reviewed: Yes I reviewed the patient's lab results. Labs: 11/30/24 17:06 Urine - Reflex from Ua Urine Culture - Pending Laboratory Tests Range/Units 11/30/24 11/30/24 17:06 18:41 WBC (4.4-10.8) 10^3/uL 9.56 RBC (3.93-5.22) 10^6/uL 5.00 Hgb (11.2-15.7) g/dL 14.7 Hct (36.0-46.0) % 43.3 MCV (80-95) fL 87 MCH (27.0-33.0) pg 29.4 MCHC (32.0-36.0) % 33.9 RDW (11.7-14.6) % 12.9 Plt Count (130-400) 10^3/uL 327 MPV (8.0-11.0) fL 10.4 Immature Gran % % 0.3 Neutrophils % % 62.1 Lymphocytes % % 30.1 Monocytes % % 6.1 Eosinophils % % 0.7 Basophils % % 0.7 Nucleated RBC % (0.0-0.3) % 0.0 Absolute Neutrophils (1.2-6.7) 10^3/uL 5.93 Absolute Lymphocytes (1.2-3.4) 10^3/uL 2.88 Absolute Monocytes (0.1-0.8) 10^3/uL 0.58 Absolute Eosinophils (0.0-0.7) 10^3/uL 0.07 Absolute Basophils (0.0-0.2) 10^3/uL 0.07 Sodium (136-145) mmol/L 142 Potassium (3.5-5.1) mmol/L 3.3 L Chloride (98-107) mmol/L 101 Carbon Dioxide (21.0-32.0) mmol/L 29.7 Anion Gap (3-11) mmol/L 11.3 H BUN (7-18) mg/dL 11 Creatinine (0.55-1.02) mg/dL 1.0 Est GFR (CKD-EPI 2020) (mL/min/1.73m2) 59.86 Glucose (74-106) mg/dL 95 Calcium (8.5-10.1) mg/dL 9.4 Total Bilirubin (0.2-1.0) mg/dL 0.7 AST (15-37) U/L 27 ALT (14-59) U/L 24 Alkaline Phosphatase (46-116) U/L 85 Total Protein (6.4-8.2) g/dL 7.8 Albumin (3.4-5.0) g/dL 3.9 Lipase (<78) U/L 77 Urine Color (Yellow) Yellow Urine Clarity (Clear) Cloudy Urine pH (5-8) >= 9.0 H Ur Specific [place] (1.005-1.025) 1.015 Urine Protein (Neg-Trace) mg/dL 100 H Urine Ketones (Negative) mg/dL Trace H Urine Blood (Negative) Trace-intact H Urine Nitrite (Negative) Positive H Urine Bilirubin (Negative) Negative Urine Urobilinogen (Up to 0.2) mg/dL 1.0 H Ur Leukocyte Esterase (Negative) Moderate H Urine RBC (0-2) HPF 3-5 H Urine WBC (0-5) HPF >50 H Ur Epithelial Cells (Negative) HPF Rare Urine Crystals (Negative) HPF Negative Urine Bacteria (Negative) HPF Many Urine Casts (Negative) LPF Negative Urine Mucus (Negative) Negative Urine Other (Negative) Rare Transitional Ur Culture Indicated? Yes Urine Glucose (Negative) mg/dL 100 H PFSH All Active Problems (Updated 11/30/24 @ 20:19 by GOLD Morales) Urinary tract infection (Acute) Hydrocephalus (Acute) Hemisensory loss (Acute) Bilateral leg weakness (Acute) Weakness (Acute) Weak arterial pulse (Acute) Thickened endometrium (Acute) Cystocele and rectocele with incomplete uterovaginal prolapse (Acute) Family history of cancer (Acute) Endometrial thickening on ultrasound (Acute) Iliotibial band syndrome of both sides (Acute) Trochanteric bursitis, left hip (Acute) Peroneal tendinitis, left leg (Acute) Tear of right gluteus medius tendon (Acute) Tendonitis involving right hip abductors (Acute) Trochanteric bursitis, right hip (Acute) DEPO MEDROL 12/29/23 Hallux rigidus, left foot (Acute) Acquired hallux varus of both feet (Acute) Pain in right foot (Acute) Pain in left foot (Acute) Left rotator cuff tear (Acute) Diverticulitis of sigmoid colon (Acute) Nausea alone (Acute) Discharge planning issues (Acute) Hepatic cyst (Acute) Abdominal pain (Acute) Medical History CAD (coronary artery disease) Anxiety disorder Major depression Hyperlipidemia Lyme disease Obesity Vitamin D deficiency Diverticulitis large intestine Hypertension GERD (gastroesophageal reflux disease) Liver cyst Psoriasis Diastolic dysfunction Mitral regurgitation Depression Invasive ductal carcinoma of right breast in female Overactive bladder Obstructive sleep apnea Insomnia Surgical History S/P dilatation and curettage Hx of cholecystectomy ductal excision Colonoscopy - MAC (08/18/17) Breast, Mastectomy Bilateral (09/18/15) Breast, Lumpectomy Family History Sister Breast cancer Cancer Uterine Mother , 64 due to pancreatic ca Cancer Uterine cancer; pancreatic cancer Depression Hypertension Son Stroke Bipolar 1 disorder Diabetes Father , 75 stroke Stroke Brother , suicide at 20 Depression Daughter Epilepsy Migraine Social History Smoking/Tobacco Use Status: Never Smoking risk assessment performed?: Yes Alcohol Intake: never Drug use: Never Substance use type: does not use Household members: none Housing: house Number of Children: 2 current occupation: Retired [employer] Current gender identity: female What is your relationship status?: Panel score (0-1 are the most socially isolated patients): 0 Do you feel safe at home: Yes Do you feel safe in your relationship?: Yes
[2024-11-30 17:48] LABS: Glucose 100 mg/dL (Negative)
[2024-11-30 18:23] LABS: C & S Indicated? Yes; WBC >50 HPF (0-5)
[2024-11-30 18:47] LABS: Abs Immature Grans 0.03 10^3/uL (0.0-0.06); HCT 43.3 % (36.0-46.0); HGB 14.7 g/dL (11.2-15.7); Immature Grans % 0.3 %; MCH 29.4 pg (27.0-33.0); MCHC 33.9 % (32.0-36.0); MCV 87 fL (80-95); MPV 10.4 fL (8.0-11.0); Platelet Count 327 10^3/uL (130-400); RBC 5.00 10^6/uL (3.93-5.22); RDW 12.9 % (11.7-14.6); RDW-SD 40.1 fL; WBC 9.56 10^3/uL (4.4-10.8)
[2024-11-30] MEDS: Normal Saline 1,000 ML 1000 ML IV (18:48)
[2024-11-30] MEDS: ACETAMINOPHEN 1,000 MG/100 ML BAG 400 MG IVPB (18:49)
[2024-11-30] MEDS: Ketorolac 15 MG/ML VIAL IVP (18:53)
[2024-11-30 19:04] LABS: ALT 24 U/L (14-59); AST 27 U/L (15-37); Albumin 3.9 g/dL (3.4-5.0); Alkaline Phosphatase 85 U/L (46-116); Anion Gap 11.3 mmol/L (3-11); BUN 11 mg/dL (7-18); Bilirubin, Total 0.7 mg/dL (0.2-1.0); CO2 29.7 mmol/L (21.0-32.0); Calcium 9.4 mg/dL (8.5-10.1); Chloride 101 mmol/L (98-107); Estimated GFR 59.86 (mL/min/1.73m2); Glucose 95 mg/dL (74-106); Lipase 77 U/L (<78); Potassium 3.3 mmol/L (3.5-5.1); Sodium 142 mmol/L (136-145); Total Protein 7.8 g/dL (6.4-8.2)
[2024-11-30] MEDS: Normal Saline Flush 10 ML SYR IVP (19:25)
[2024-11-30] MEDS: Normal Saline - Diluent 50 ML VIAL IJ (19:26)
[2024-11-30] MEDS: Omnipaque 350 MG/ML 100 ML BTL IJ (19:26)
--- NOTE | 2024-11-30 20:09 | DI.VRAD_ITS ---
PROCEDURE INFORMATION: Exam: CT Abdomen And Pelvis With Contrast Exam date and time: 11/30/2024 7:25 PM Age: 74 years old Clinical indication: Other: Rlq tenderness, suprapubic pain, R CVA tenderness TECHNIQUE: Imaging protocol: Computed tomography of the abdomen and pelvis with contrast. Contrast material: OMNI 350; Contrast volume: 75 ml; Contrast route: INTRAVENOUS (IV); COMPARISON: CT ABDOMEN PELVIS W 09/04/2024 5:29 PM FINDINGS: Lungs: Lung bases are clear. Diaphragm: There is a small hiatal hernia. Liver: The liver has a normal appearance. Multiple circumscribed hypodense foci are present within the liver suggesting the presence of hepatic cysts which are incompletely characterized. Gallbladder and biliary ducts: The gallbladder is not visualized and may be surgically absent. Pancreas: Normal. No ductal dilation. Spleen: The spleen demonstrates normal size. A small splenule is present adjacent to the spleen. Adrenal glands: The adrenal glands have a normal appearance. Kidneys and ureters: The kidneys are normal in size. There is a low-density left renal cyst. No hydronephrosis. No hydroureter or ureterolithiasis. Stomach and bowel: The bowel demonstrates overall normal caliber and wall thickness. There are extensive diverticular outpouchings throughout the colon. No mucosal thickening or pericolonic fat stranding. Appendix: The appendix is thin walled. Intraperitoneal space: Unremarkable. No free air. No significant fluid collection. Vasculature: There are scattered atheromatous calcifications throughout the aorta and iliac arteries. Lymph nodes: No enlarged lymph nodes. Urinary bladder: The bladder is thin walled and fluid filled. Reproductive: The uterus has a normal appearance. There is likely a fibroid within the lower uterine segment. Bones/joints: Bones have a normal appearance. No acute fracture or suspicious bone lesion. Soft tissues: Unremarkable. IMPRESSION: 1. No acute intra-abdominal findings. 2. Normal appendix. 3. Diverticulosis. No acute diverticulitis. Dictated and Authenticated by: Gema Johns MD. Orderin Deirdre Rush MD
[2024-11-30] MEDS: cefTRIAXone 2 GM/50 ML BAG IVPB (20:27)
[2024-11-30] MEDS: oxyCODONE 5 MG TAB PO (21:14)
[2024-11-30 21:25] VITALS: BP 171/80; PULSE 83; RESP 18; O2SAT 96
--- NOTE | 2024-12-01 12:11 | NUR.NOTE ---
patient called for urine culture results. patient will fill Abx rx that was given previous day. Nursing Note:
--- NOTE | 2024-12-02 08:57 | NUR.NOTE ---
Access chart to determine antibiotics on discharge for urine culture. Result given to provider. Nursing Note:
== END 2024-11-30 21:35 | disposition home or self-care (01) ==
PROVIDERS: Emergency Provider Physician Assistant; PCP Physician Assistant Medical
DX: N39.0 Urinary tract infection, site not specified (principal)
CPT/HCPCS: 99283 ×2; 51702; 80053; 83690; 87077; 74177; 81003; 81015; 85025; 87086; 87186; J0131; J0696; J1885; J3490

== ENCOUNTER 2025-01-04 19:04 | Outpatient (REF) | payer MEDICARE, SELFPAY ==
[2025-01-04 19:54] LABS: Glucose Negative (Negative)
[2025-01-04 20:04] LABS: WBC 20-50 HPF (0-5)
== END 2025-01-04 19:05 | disposition home or self-care (01) ==
LOC: NCHCN 19:04
PROVIDERS: PCP Physician Assistant Medical; Visit Provider Physician Assistant Medical
DX: R30.0 Dysuria (principal)
CPT/HCPCS: 81003; 81015

== ENCOUNTER → 2025-01-06 06:25 | Outpatient (CLI) | payer MEDICARE, SELFPAY ==
--- NOTE | 2025-01-06 | DI.DEXA_ITS ---
Exam(s) XR DEXA BONE DENSITY W/WO ISABEL EXAM: XR DEXA BONE DENSITY W/WO ISABEL CLINICAL HISTORY: SCREENING FOR OSTEOPOROSIS, Z78.0 ASYMPTOMATIC MENOPAUSAL STATE TECHNIQUE: HoloCountdown Horizon C densitometer analysis of left hip, lumbar spine and right forearm. Lateral survey image of the thoracic and lumbar spine. COMPARISON: MR MR SPINE LUMBAR WO CONT from 09/14/2024 FINDINGS: Lateral view of the thoracic and lumbar spine shows no evidence of compression fractures. Bone mineral density measurements of the lumbar spine correspond to a total T- score of -1.3, in the osteopenic range Bone mineral density measurements of the left hip correspond to a total T-score of -2.1, in the osteopenic range. The femoral neck T-score is -2.6, in the osteoporotic range. Theright forearm bone mineral density measurements correspond to a T-score of the distal 3rd of -1.3, in the osteopenic range.. IMPRESSION: Osteopenia of the spine and forearm. Osteoporosis of the femoral neck region.
== END ==
LOC: DI 06:25
PROVIDERS: PCP Physician Assistant Medical; Visit Provider Physician Assistant Medical
DX: Z78.0 Asymptomatic menopausal state (principal); M81.0 Age-related osteoporosis without current pathological fracture
CPT/HCPCS: 77080

== ENCOUNTER 2025-01-10 15:09 | Outpatient (REF) | payer MEDICARE, SELFPAY ==
[2025-01-10 19:22] LABS: Abs Immature Grans 0.03 10^3/uL (0.0-0.06); HCT 41.3 % (36.0-46.0); HGB 13.6 g/dL (11.2-15.7); Immature Grans % 0.4 %; MCH 29.3 pg (27.0-33.0); MCHC 32.9 % (32.0-36.0); MCV 89 fL (80-95); RBC 4.64 10^6/uL (3.93-5.22); RDW 12.6 % (11.7-14.6); RDW-SD 40.8 fL; WBC 7.77 10^3/uL (4.4-10.8)
[2025-01-10 19:34] LABS: Anion Gap 7.5 mmol/L (3-11); BUN 9 mg/dL (9-23); CO2 26.5 mmol/L (20.0-31.0); Calcium 9.1 mg/dL (8.3-10.6); Chloride 102 mmol/L (98-107); Glucose 109 mg/dL (74-106); Potassium 4.1 mmol/L (3.5-5.1); Sodium 136 mmol/L (136-145)
[2025-01-10 19:36] LABS: Magnesium 1.7 mg/dL (1.6-2.6)
== END 2025-01-10 15:10 | disposition home or self-care (01) ==
LOC: NCHCN 15:09
PROVIDERS: PCP Physician Assistant Medical; Visit Provider Nurse Practitioner Family
DX: Z86.39 Personal history of other endocrine, nutritional and metabolic disease (principal); R53.83 Other fatigue
CPT/HCPCS: 80048; 83735; 85025

== ENCOUNTER 2025-02-15 16:23 | Outpatient (REF) | payer MEDICARE, SELFPAY ==
[2025-02-15 19:45] LABS: HCT 39.6 % (36.0-46.0); HGB 13.2 g/dL (11.2-15.7); MCH 29.5 pg (27.0-33.0); MCHC 33.3 % (32.0-36.0); MCV 88 fL (80-95); MPV 11.4 fL (8.0-11.0); Platelet Count 323 10^3/uL (130-400); RBC 4.48 10^6/uL (3.93-5.22); RDW 12.7 % (11.7-14.6); RDW-SD 41.2 fL; WBC 7.14 10^3/uL (4.4-10.8)
[2025-02-15 19:56] LABS: ALT 16 U/L (10-49); AST 24 U/L (<34); Albumin 4.3 g/dL (3.2-5.0); Alkaline Phosphatase 68 U/L (46-116); Anion Gap 10.1 mmol/L (3-11); BUN 14 mg/dL (9-23); Bilirubin, Total 0.4 mg/dL (0.2-1.2); CO2 23.9 mmol/L (20.0-31.0); Calcium 8.9 mg/dL (8.3-10.6); Chloride 102 mmol/L (98-107); Glucose 130 mg/dL (74-106); Magnesium 1.6 mg/dL (1.6-2.6); Potassium 4.0 mmol/L (3.5-5.1); Sodium 136 mmol/L (136-145); Total Protein 7.2 g/dL (5.7-8.2)
[2025-02-15 20:00] LABS: Hemoglobin A1C 5.0 % (<5.7)
== END 2025-02-15 16:24 | disposition home or self-care (01) ==
LOC: NCHCN 16:23
PROVIDERS: PCP Physician Assistant Medical; Visit Provider Physician Assistant Medical
DX: R53.1 Weakness (principal); R73.9 Hyperglycemia, unspecified; N39.0 Urinary tract infection, site not specified
CPT/HCPCS: 80053; 85027; 83036; 83735; 87086